=== PATIENT | female | born 1950 | race Caucasian/White ===

== ENCOUNTER → 2017-11-14 12:58 | Outpatient (CLI) | payer MEDICARE, OTHER, SELFPAY ==
--- NOTE | 2017-11-14 13:01 | US_ITS ---
STUDY: THYROID ULTRASOUND REASON FOR EXAM: Female, 67 years old. Nodules TECHNIQUE: Ultrasound evaluation of the thyroid was performed with real-time and static barboza-scale imaging. COMPARISON: November 29, 2016 FINDINGS: RIGHT LOBE: The right lobe of the thyroid gland measures 4.7 x 1.4 x 1.4 cm. There is a heterogeneous echotexture. Multiple nodules. Largest is 12 x 9 x 9MM. The lesion is solid with regular margins and intra- nodular doppler flow. LEFT LOBE: The left lobe of the thyroid gland measures 4 x 1.3 x 1.3 cm. There is a heterogeneous echotexture. Multiple nodules. The largest measures 13 x 12 x 9 mm. The lesion is solid with regular margins and intra- nodular doppler flow. ISTHMUS: The isthmus measures 3 mm . Nodule of the right isthmus measuring 16 x 14 x 5 mm. Nodule near the left isthmus measures 5 x 6 x 4 mm. US/Thyroid IMPRESSION: Multiple bilateral thyroid nodules. Stable right thyroid nodules. The nodule in the left thyroid lobe appear to have enlarged. Electronically Signed: Brandon Cleveland MD at 17:59 EST , Service support ,
== END ==
PROVIDERS: Family Provider Nurse Practitioner; PCP Nurse Practitioner; Visit Provider Nurse Practitioner
DX: E04.1 Nontoxic single thyroid nodule (principal)
CPT/HCPCS: 76536

== ENCOUNTER → 2017-11-28 08:03 | Outpatient (CLI) | payer MEDICARE, OTHER, SELFPAY ==
[2017-11-19 14:00] VITALS: BP 144/78; BMI 31.3
--- NOTE | 2017-11-28 | FLU_PTH ---
PATIENT: RUDI SUMMERS LOC: U#:[id number] AGE/SX: 75/F ROOM: RE11/28/[address]: Dr. Nik Chicas MD : 1950 BED: DIS: SPEC #: [id number] RECD: 11/28/17 10:16 STATUS: BRYON ELIZABETH #: [id number] VIC: 11/28/17 00:[address]: Nik Chicas DEPT: CYTOLOGY RECD BY: Rodrick Decker ENTERED: 11/28/17 10:17 SP TYPE: Fluid OTHR DR: Ellen Fonseca, OBSTETRICAL TECH-C Tissues: A - Thyroid gland, NOS B - Thyroid isthmus C - Thyroid gland, NOS Procedures: Pap Stain (control) Special Stain Group II Surgery Specimen Level IV Diff Quik Stain (control) Cell Block Cytospin Fluid HEADER OPERATION: Ultrasound-guided thyroid biopsy PRE-OP DIAGNOSIS: Multinodular goiter E04.2 TISSUE SUBMITTED: A ? Left thyroid, B ? Isthmus, C ? Right thyroid DIAGNOSIS CYTOLOGY A. Fine needle aspiration, left thyroid nodule (smears and cell block): Adequate for evaluation. Negative, consistent with benign follicular nodule. B. Fine needle aspiration, isthmus nodule (smears and cell block): Adequate for evaluation. Negative, consistent with benign colloid nodule. C. Fine needle aspiration, right thyroid lobe (smears and cell block): Adequate for evaluation. Negative, consistent with benign follicular nodule. AM:ke 11/29/17 COMMENT The specimen is evaluated at the time of thyroid FNA by Dr. Mercado. Immediate Evaluation = A. Follicular cells present. B. Follicular cells present. C. Follicular cells present. Case has been reviewed in consultation with Dr. Loya who concurs with the above diagnosis. IDC:[facility] CYTOLOGY STUDY Slides are reviewed. CYTOLOGY GROSS A - Received is 0.5 ml of reddish fluid labeled with the patient's name, and designated left thyroid. Eight imprints and six paps are made from the submitted fluid and the rest is added to CytoLyt for cell block preparation. Submitted for cytology study. B - Received is 0.5 ml of reddish fluid labeled with the patient's name, and designated isthmus. Six imprints and five paps are made from the submitted fluid and the rest is added to CytoLyt for cell block preparation. Submitted for cytology study. C - Received is 0.2 ml of reddish fluid labeled with the patient's name, and designated right thyroid. Six imprints and four paps are made from the submitted fluid and the rest is added to CytoLyt for cell block preparation. Submitted for cytology study. / AM:ke 11/28/17 TC:5 CPT: 70095 x3, 42641 x3
--- NOTE | 2017-11-28 08:06 | US_ITS ---
CLINICAL HISTORY: Female, 67 years old. Thyroid nodules. PROCEDURE: BIOPSY - biopsy of the left and right thyroid nodules as well as the nodular density in the isthmus. Under direct sonographic guidance, the surgeon performed a 22-gauge biopsy of the 1.3 cm x 1.2 cm x 0.8 cm nodule in the left lobe of the thyroid as well as of the 1.3 cm x 0.9 cm x 1.1 cm nodule in the lower right lobe of the thyroid. Aspiration biopsy of the isthmus nodule measuring 1.5 cm x 1.4 cm x 0.4 cm was obtained as well. US/US Thyroid Biopsy IMPRESSION: Successful ultrasound-guided biopsy of the thyroid nodules. Electronically Signed: Tariq Deluna MD at 10:07 EST Tel [phone], Service support ,
--- NOTE | 2017-11-28 09:00 | OP.PCM_ITS ---
Problem List (1) Nontoxic multinodular goiter Status: Acute Report of Operation Date of Procedure: 11/28/17 Pre-Operative Diagnosis: E04.2 multinodular goiter Post-Operative Diagnosis: Same Surgery/Procedure Performed:: 30369 ultrasound-guided fine-needle aspiration of left thyroid nodule ?1. Ultrasound-guided fine-needle aspiration of right thyroid nodule ?2 Type of Anesthesia:: Local Description of Procedure: Patient was placed in the ultrasound unit left side of her neck was ultrasound thyroid lesion was identified I prepped the skin with alcohol injected 1% lidocaine plain under ultrasound guidance I took 3 passes with a 22-gauge needle and immediately gave them to the pathologist. He plated these and looked at him and said we had an adequate number of follicular cells. We then ultrasound the right side of the neck the isthmus lesion on the right side of the neck with the first lesion that I went after. I prepped the skin with alcohol. I injected 1% lidocaine plain. Under ultrasound guidance I took 3 passes with a 22-gauge needle. Gave these to the pathologist on the pathologist gave a quick look and said these were adequate. Right thyroid nodule was then identified the skin was prepped with alcohol. 1% lidocaine plain was injected. Under ultrasound guidance 3 passes with a 22- gauge needle were performed. I gave him to the pathologist who plated them on glass slides and said that we had an adequate number of follicular cells. Sterile dressings were applied and the patient tolerated the procedure well. I will see the patient back in 1 week and we will discuss the pathology report at that time. - Admit VTE Documentation VTE Present on Admission: No VTE Mechan Device Prophylaxis: None VTE Pharm Prophylaxis ordered?: No Reason prophylaxis not ordered:: Treatment Not Indicated
== END ==
PROVIDERS: Family Provider Nurse Practitioner; PCP Nurse Practitioner; Visit Provider Surgery
DX: E04.2 Nontoxic multinodular goiter (principal)
CPT/HCPCS: 10022; 76942; 88108; 88305; 88313

== ENCOUNTER → 2018-10-31 14:18 | Outpatient (CLI) | payer MEDICARE, OTHER, SELFPAY ==
[2017-11-19 14:00] VITALS: BMI 31.3
--- NOTE | 2018-10-31 14:20 | US_ITS ---
STUDY: THYROID ULTRASOUND REASON FOR EXAM: Female, 68 years old. Thyroid nodules follow-up TECHNIQUE: Ultrasound evaluation of the thyroid was performed with real-time and static barboza-scale imaging. COMPARISON: 11/14/2017 FINDINGS: RIGHT LOBE: The right lobe of the thyroid gland measures 4.8 x 1.6 x 1.7 cm. There is a heterogeneous echotexture. Nodule adjacent to the isthmus measures 15 mm, stable. There is a 10 mm nodule in the right thyroid lobe which is slightly smaller since the prior study. No new or enlarging thyroid nodule. LEFT LOBE: The left lobe of the thyroid gland measures 3.7 x 1.5 x 1.6 cm. There is a heterogeneous echotexture. Similar thyroid nodule since prior study with the largest measuring up to 13 mm, when measured in a similar fashion. There is also a nodule along the left side of the isthmus which measures up to 6 mm. No new or enlarging thyroid nodule. ISTHMUS: The isthmus measures 4 mm. The regional lymph nodes are normal. US/Thyroid IMPRESSION: 1. Stable multinodular thyroid gland. No new or enlarging thyroid nodule. Electronically Signed: Navi Garcia MD at 16:38 EST , Service support ,
--- OUTSIDE RECORDS SUMMARY | 2019-01-05 04:36 | XMS RPT_ITS | Continuity of Care Document ---
:1950 Author Organization [facility] Address [address] [place] [address] Phone Care Team Providers Name Role Phone Ellen Fonseca CNP Unavailable Adrianne WISE, Nik Cowart Unavailable Gage Pike MD Unavailable Zach Gomez MD Unavailable Patsy Ann Unavailable Andrew Minaya MD Unavailable Emily Garcia Unavailable Unavailable Angel Michel Unavailable Unavailable Unavailable Unavailable Problems Name Dates Details Anemia (D64.9, 285.9) Comments: hemoglobin, 18 April 2017, was 13.2 in Oct 2016, 13.0 Nov 02 Status: Active Annual visit for general adult medical examination without abnormal findings (Z00.00, V70.0) Status: Active Bladder mass (N32.89, 596.89) Comments: Will do UA and fax results to Dr Ramos, 07/28 removed bladder massNon malignant , Dr Anand Status: Active Bladder tumor (D49.4, 239.4) Status: Active BMI 31.0-31.9,adult (Z68.31, V85.31) Status: Active BMI 32.0-32.9,adult (Z68.32, V85.32) Status: Active Breast cancer screening (Z12.31, V76.10) Status: Active Colon cancer screening (Renamed from Encounter for screening for malignant neoplasm of colon) (Z12.11, V76.51) Comments: Last colonoscopy in 2014. Pt refused cologuard or any testing until next colonoscopy is due. Status: Active Deliveries (Parity) Comments: Term, 1 Status: Active Encounter for hepatitis C virus screening test for high risk patient (Z11.59, V73.89) Status: Active Encounter for Medicare annual wellness exam (Z00.00, V70.0) Comments: MEDICARE PHYSICAL WITH ABNORMAL FINDING Z 00.01Will work with mortgage or loan underwriter < will check with mortgage or loan underwriter on that, worked on it luciana 2016Getting screening trexcord from rickereneGbrett pnemovax , needs prevnar 13Pa tient here for medical follow up as well as medicare physical. Went through all the medicare questions withthe patient and reveiwed all their medical problems.Breast exam:no masses, lumps, nodules.Axill germain lymph nodes non palpable.No abnormal moles on physical examination.Whisper test:3/3MMSE .Depression screening negative.Reviewed all the labs with the patient.(CBC, CMP, lipid panel, TSH, vitami n D, Vit B12,folate, HBA1c, UA)Mammogram: 10/29 Pomerene(will get results)BMD( 01/27(will get resulty )Colonoscopy( 2014 , rickjuan pablo, was told 10 yrs, will get results)ANDREW MinayaUp to date with tika mccartney.Does not need any medication refills.Make sure throw rugs are thin and rubber backed. Recommend handrail in bathroom.Denies falls in the last 6 months Counselled on diet and exercise.Pt does not have durable power of traffic law attorney and living will. Status: Active Fatigue (R53.83, 780.79) Status: Active Goiter (E04.9, 240.9) Comments: multinodular. saw Shewmom(moved)[facility] endocrine, 2 years ago. thyroid 10/29: Status: Active Hematuria (R31.9, 599.70) Comments: sees Cheng, had cystosocpy, follow ua to return prn Status: Active Hypercholesterolemia (E78.00, 272.0) Comments: reveiwed with patient recent tests ldl goodTG 92(was 88 09/27)TC 169(was 149)HDL 53( was 44LDL 98( was 85)Diet and exercise Status: Active Hyperparathyroidism (E21.3, 252.00) Comments: had parathyroidectomy 2010, Oct 2018 PTH 39, calcium good Status: Active Hyperparathyroidism, primary (E21.0, 252.01) Comments: Dr. jonas victor, at [facility]. calcium levels good. reviewed with patient labs from [facility] hui 10-14PTH of 1-18 normal at 31 and calcium normal at 9.5, repeating in 6 monthsremoved parathyroid 2010, CC.Saw Jonas Victor in 2010, not any more Status: Active Impaired fasting glucose (R73.01, 790.21) Status: Active Nail disorder (L60.9, 703.9) Comments: start with lamisil told if not improve with the treatment and see good nail grow out then to derm assure nto miss a melanoma etc. looks like fungu Status: Active Need for prophylactic vaccination and inoculation against influenza (Renamed from Need for immunization against influenza) (Z23, V04.81) Status: Active Need for prophylactic vaccination and inoculation against influenza (Renamed from Need for immunization against influenza) (Z23, V04.81) Status: Active Need for Tdap vaccination (Renamed from Need for cmemsmmnio-fyqppet-cozxtvswr (Tdap) vaccine, adult/adolescent) (Z23, V06.1) Status: Active Nonsmoker (Z78.9, V49.89) Status: Active Other abnormal glucose (R73.09, 790.29) Comments: HBA1c 5.9(10/29)Now 5.7(04/24/16)today 6-16- A1C is 5.7 Status: Active Post-menopausal (Z78.0, V49.81) Status: Active Pregnancies () Comments: 1 Status: Active Rash (R21, 782.1) Comments: of back, try lac hydrin 12% lotion to back Status: Active Skin texture changes (R23.4, 782.8) Status: Active Thyroid Nodule (E04.1, 241.0) Comments: Repeated Thyroid US showing enlarging nodule, will send to surgeon for biopsy, pt does not want [facility], will send to [facility]. Status: Active Unspecified urinary incontinence (R32, 788.30) Comments: doing well on med Status: Active Varicose veins of legs (I83.93, 454.9) Status: Active Vertigo (R42, 780.4) Status: Active Visit for screening mammogram (Z12.31, V76.12) Status: Active Vitamin D deficiency (E55.9, 268.9) Comments: Oct Status: Active Medications Name Dates Details Atorvastatin Calcium 80 MG Oral Tablet 1 Tablet daily for 0 days Quantity: 30 {Tablet} Refills: 3 Ordered:24-Jul-2018 Almajaronfranco DECKER Ellen Nefffranco DECKER Ellen Ma Start : 24-Jul-2018 Active Calcitriol 0.25 MCG Oral Capsule 1 (one) Capsule daily for 0 days Quantity: 30 {Capsule} Refills: 3 Ordered:24-Jul-2018 Almajaronfranco DECKER Ellen Nefffranco DECKER Ellen Ma Start : 24-Jul-2018 Active FISH OIL BURP-LESS, 1000MG (Oral Capsule) 3 qd (1000 MG) Active Meclizine HCl 12.5 MG Oral Tablet 1 (one) Tablet q8hrs prn dizziness for 0 days Quantity: 15 {Tablet} Refills: 0 Ordered:27-Oct-2018 Almabecky BRIANNE Ellen Nefffranco DECKER Ellen Ma Start : 27-Oct-2018 Active Oxybutynin Chloride ER 15 MG Oral Tablet Extended Release 24 Hour 1 Tablet ER 24HR daily for 0 days Quantity: 30 {Tablet} Refills: 3 Ordered:24-Jul-2018 Almabecky BRIANNE Ellen Nefffranco DECKER Ellen Ma Start : 24-Jul-2018 Active Vitamin D3 Super Strength 2000 UNIT Oral Tablet 1 (one) Tablet daily for 0 days Quantity: 30 {Tablet} Refills: 11 Ordered:27-Oct-2018 Raymundo BRIANNE Ellen Nefffranco DECKER Ellen Ma Start : 27-Oct-2018 Active WOMENS ONE DAILY (Oral Tablet) 1 qd Active CALCITRIOL, 0.25MCG (Oral Capsule) 1 qd (0.25 MCG) Inactive DETROL LA, 4MG (Oral Capsule Extended Release 24 Hour) 1 Capsule ER 24HR qd for 0 days Quantity: 30 {Capsule_ER_24HR} Refills: 3 Ordered:20-Feb-2011 CONCEPCION Valencia Start : 23-Nov-2010 End : 20-Feb-2011 Inactive ELIDEL, 1% (External Cream) 1 (one) Cream Cream bid for 0 days Quantity: 1 {Tube} Refills: 0 Ordered:04-Oct-2014 CONCEPCION Valencia Start : 30-Nov-2013 End : 04-Oct-2014 Inactive PREDNISONE, 20MG (Oral Tablet) 1 (one) Tablet uad for 15 days Refills: 0 Ordered:30-Mar-2015 Alessandra Hudson MD Start : 03-Mar-2015 End : 18-Mar-2015 Inactive Comments:2 a d for 5 d, 1 a d for 5d, 1/2 a d for 5 d TAMIFLU, 75MG (Oral Capsule) 1 Capsule BID for 0 days Quantity: 10 {Capsule} Refills: 0 Ordered:27-Oct-2009 CONCEPCION ValenciaInactive TRIAMCINOLONE ACETONIDE, 0.1% (External Cream) 1 (one) Cream Cream bid for 0 days Quantity: 1 {Each} Refills: 0 Ordered:21-Oct-2015 CONCEPCION Valencia Start : 03-Mar-2015 End : 21-Oct-2015 Inactive TYLENOL/CODEINE #3, 300-30MG (Oral Tablet) 1-2 Tablet TID/PRN for 0 days Quantity: 20 {Tablet} Refills: 0 Ordered:17-Sep-2008 CONCEPCION Valencia Start : 17-Sep-2008 End : 15-Mar-2009 Inactive ZITHROMAX Z-CAROLINE, 250MG (Oral Tablet) 2 (two) Tablet today then 1 qd for 4 days for 0 days Quantity: 6 {Tablet} Refills: 0 Ordered:22-Sep-2013 Riddhi Hobson LPN Start : 17-Aug-2013 End : 22-Sep-2013 Inactive ZOSTAVAX, 35973VVY/0.65ML (Subcutaneous Solution Reconstituted) 1 For Solution once SC for 0 days Quantity: 1 {For_Solution} Refills: 0 Ordered:16-Mar-2013 CONCEPCION Valencia Start : 16-Sep-2012 End : 16-Mar-2013 Inactive Comments:inject at pharmacy LamISIL 250 MG Oral Tablet 1 (one) Tablet Tablet in am for 0 days Quantity: 30 {Tablet} Refills: 2 Ordered:29-Mar-2017 Yuliet Cordero LPN Start : 13-Feb-2016 End : 29-Mar-2017 Discontinued LOVASTATIN, 40MG (Oral Tablet) 2 (two) Tablet QD for 0 days Quantity: 60 {Tablet} Refills: 3 Ordered:16-Mar-2013 Alessandra Hudson MD Start : 16-Mar-2013 End : 16-Mar-2013 Discontinued Vitamin D3 91961 UNIT Oral Tablet 1 (one) Tablet weekly for 0 days Quantity: 6 {Tablet} Refills: 1 Ordered:29-Mar-2017 Yuliet Cordero LPN Start : 24-Apr-2016 End : 29-Mar-2017 Discontinued Allergies and Adverse Reactions Name Dates Details Penicillins (Allergy) Status: Active Comments: ? Past Medical History Name Dates Details Acute pharyngitis (J02.9, 462) Status: Inactive as of 04-Oct-2014 BMI 31.0-31.9,adult (Z68.31, V85.31) Status: Inactive as of 23-Oct-2017 dehydration Comments: again ever agter iv fliuds twice. will admit Status: Inactive as of 16-Mar-2013 Eczema of eyelid (H01.139, 373.31) Status: Inactive as of 04-Oct-2014 Gastroenteritis (K52.9, 558.9) Comments: resoved has been going around Status: Resolved as of 15-Mar-2009 Headache (R51, 784.0) Comments: will get ov note from [facility] have my nurse call never got MRI report Status: Inactive as of 16-Mar-2013 Hive (L50.9, 708.9) Comments: not look like bug bites. not in area expect for bedbugs. not itch at night not seem like scabies. ? new mukesh. sterios and otc antihistamine not better then sderm Status: Inactive as of 21-Oct-2015 Hypercalcemia (E83.52, 275.42) Status: Inactive as of 16-Mar-2013 Hypokalemia (E87.6, 276.8) Comments: needs replaced Status: Inactive as of 16-Mar-2013 INFLAMED SEBORRHEIC KERATOSIS (L82.0, 702.11) Comments: left lower cheek Status: Inactive as of 04-Oct-2014 lesion on left calf Comments: need shave biopsy Status: Inactive as of 16-Mar-2013 Nausea and vomiting (R11.2, 787.01) Comments: ? viral. ? related to headaches. Status: Inactive as of 16-Mar-2013 Other abnormal finding of urine (R82.99, 791.9) Status: Inactive as of 16-Mar-2013 Screening for HPV (human papillomavirus) (Z11.51, V73.81) Comments: if negatie can do pap every few years Status: Inactive as of 16-Mar-2013 Unspecified Diagnosis Status: Inactive as of 16-Mar-2013 Urinary frequency (R35.0, 788.41) Status: Inactive as of 23-Oct-2017 Well woman exam (Z01.419, V72.31) Comments: colonscopy 2003, pap 5- HPV neg. mammo summer Status: Inactive as of 04-Oct-2014 Procedures Procedure Dates Details Colonoscopy Completed Comments: 04.20.15 - Lc De Jesus Cystoscopy/TURB Completed Comments: 07-25-15 Bladder tumor-benign Dr. Pabon parathyriodectomy 2010 Completed Date Value Details 06-Dec-2017 Operative Report Result: Comments: See Note; NOTES: [facility] Medical Records Department [address] [place] [address] Operative Report 11/28/17 0858 MR#: [id number] Acct: [id number] Name: PARIS LEIVA Rep #: [id number] : 1950 67 From: Nik Chicas MD PCP: Ellen Fonseca NP Status: REG CLI Y Location: [place] Problem List (1) Nontoxic multinodular goiter Status: Acute Report of Operation Date of Procedure: 11/28/17 Pre-Operative Diagnosis: E04.2 multinodular goiter Post- Operative Diagnosis: Same Surgery/Procedure Performed:: 40328 ultrasound-guided fine-needle aspiration of left thyroid nod ule 1. Ultrasound-guided fine-needle aspiration of right thyroid nodule 2 Type of Anesthesia:: Local Description of Procedure: Patient was placed in the ultrasound unit left side of her neck was ultras ound thyroid lesion was identified I prepped the skin with alcohol injected 1% lidocaine plain under ultrasound guidance I took 3 passes with a 22-gauge needle and immediately gave them to the pathologi st. He plated these and looked at him and said we had an adequate number of follicular cells. We then ultrasound the right side of the neck the isthmus lesion on the right side of the neck with the fir st lesion that I went after. I prepped the skin with alcohol. I injected 1% lidocaine plain. Under ultrasound guidance I took 3 passes with a 22-gauge needle. Gave these to the pathologist on the pathol ogist gave a quick look and said these were adequate. Right thyroid nodule was then identified the skin was prepped with alcohol. 1% lidocaine plain was injected. Under ultrasound guidance 3 passes wit h a 22-gauge needle were performed. I gave him to the pathologist who plated them on glass slides and said that we had an adequate number of follicular cells. Sterile dressings were applied and the lary ent tolerated the procedure well. I will see the patient back in 1 week and we will discuss the pathology report at that time. - Admit VTE Documentation VTE Present on Admission: No VTE Mechan Device Prophylaxis: None VTE Pharm Prophylaxis ordered?: No Reason prophylaxis not ordered:: Treatment Not Indicated 12/06/17 1334 <Electronically signed by Nik Chicas MD> Date Nik Chicas MD CC: Ellen Fonseca QUALITY INSPECTOR; Nik Chicas MD Signed 05-Dec-2017 Surgery Visit Report Result: Comments: See Note; NOTES: [facility] [address] [facility] [address] [place] [address] OFFICE VISIT Date of Service: 12/05/17 MR#: [id number] Acct: [id number] Name: PARIS BENAVIDES Rep #: [id number] : 1950 Provider: Nik Chicas MD Age/Sex: 67/F Location: [facility] Status: Signed Intake Intake Visit Reasons: F/U THYROID BX/WCH 11/28/2017 Chief Complaint: thyr oid FNA Nurse Staff Required: No Is patient in pain?: No Allergies Penicillins [PCN] Adverse Reaction (Verified 12/05/17 13:41) Hives Medications Aspirin [Aspirin, Baby] 81 mg PO DAILY@0800 07/18/15 [History Confirmed 12/05/17] Atorvastatin Calcium [Lipitor] 80 mg PO QHS 07/18/15 [History Confirmed 12/05/17] Calcitriol [Calcitriol] 0.25 mcg PO DAILY 07/18/15 [History Confirmed 12/05/17] Multivitam ins,Therapeutic [Multivitamin] 1 mg PO DAILY 07/18/15 [History Confirmed 12/05/17] Colcord-3 Fatty Acids/Fish Oil [Fish Oil 1,000 mg Capsule] 1 ea PO QHS 07/18/15 [History Confirmed 12/05/17] Colcord-3 Fatt y Acids/Fish Oil [Fish Oil 1,000 mg Softgel] 2 ea PO DAILY 07/18/15 [History Confirmed 12/05/17] Oxybutynin Chloride [Ditropan Xl] 15 mg PO DAILY 07/18/15 [History Confirmed 12/05/17] Is last menstrua l period known: No Post menopausal: Yes Patient : No PFSH Surgical History History of parathyroid surgery (Acute) S/P thyroid biopsy (Acute) Fam sindi History Mother Cancer Pancreas cancer Father CVA (cerebral vascular accident) Social History Smoking Status: Former smoker alcohol intake: never sub stance use type: does not use HPI HPI HPI: PARIS LEIVA, is a 67 F who presents to the office today for follow-up from a fine-needle aspiration of both the left and right side of her thyroid glands . Patient underwent a fine-needle aspiration on 11/28/2017 there were 3 areas that I biopsied a left thyroid nodule isthmus nodule in the right thyroid nodule all these came back as benign follicular nod ules all of them are adequate for evaluation she has noted a little bit of bruising. There have been no discomfort when she swallows and the headache she has been phonating appropriately. Exam HENMT Other: Her neck is supple minimal bruising is identified mostly on the left side there is no hard palpable nodules identified. Assessment AND Plan Problems 1. Multinodular goiter (nontoxic) E04.2 Nacho n Patient will need to have yearly thyroid ultrasounds. Of any the nodules bit larger than 4 cm and we will need to remove them. If any the nodules grow by more than 20% we will need to re-biopsy them. Coding Level of Care Code Off vis,est,level 2 Diagnoses Multinodular goiter (nontoxic) E04.2 12/05/17 1430 <Electronically signed by Nik Chicas MD> Date Nik Chicas MD Cosigner Signature: Date (if applicable) CC: Ellen Fonseca NP 28-Nov-2017 US Thyroid Biopsy Result: Comments: See Note; NOTES: [facility] Imaging Services [address] [place] [address] US Thyroid Biopsy MR#: [id number] Acct: [id number] Name: KRISTOPHERPARIS Rep #: [id number] D OB: 1950 F 67 From: Tariq Deluna MD PCP: Ellen Fonseca NP Status: REG CLI Study: US Thyroid Biopsy Date of Exam: 11/28/17 Exam# [id number] Ordering Dr: Nik Chicas MD CLINICAL HISTORY: Ed hadley, 67 years old. Thyroid nodules. PROCEDURE: BIOPSY - biopsy of the left and right thyroid nodules as well as the nodular density in the isthmus. Under direct sonographic guidance, the surgeon per formed a 22-gauge biopsy of the 1.3 cm x 1.2 cm x 0.8 cm nodule in the left lobe of the thyroid as well as of the 1.3 cm x 0.9 cm x 1.1 cm nodule in the lower right lobe of the thyroid. Aspiration biops y of the isthmus nodule measuring 1.5 cm x 1.4 cm x 0.4 cm was obtained as well. US/US Thyroid Biopsy IMPRESSION: Successful ultrasound-guided bi opsy of the thyroid nodules. Electronically Signed: Tariq Deluna MD at 10:07 EST Tel [phone], Service support , CC: Ellen Fonseca QUALITY INSPECTOR; Nik Chicas MD Cotton Header: Signed 21-Nov-2017 Surgery Visit Report Result: Comments: See Note; NOTES: [facility] [place] [address] [facility] [address] [place] [address] OFFICE VISIT Date of Service: 11/19/17 MR#: [id number] Acct: [id number] Name: PARIS BENAVIDES Rep #: [id number] : 1950 Provider: Nik Chicas MD Age/Sex: 67/F Location: [facility] Status: Signed Intake Vital Signs11/19/17 Height 5 ft 7 in 11/19/17 Weight: 200 lb Intake Visi t Reasons: THYROID NODULE Nurse Staff Required: No Is patient in pain?: No Allergies Penicillins [PCN] Adverse Reaction (Verified 11/19/17 14:01) Hives Medications Aspirin [Aspirin, Baby] 81 mg PO DAILY@0800 07/18/15 [History Confirmed 11/19/17] Atorvastatin Calcium [Lipitor] 80 mg PO QHS 07/18/15 [History Confirmed 11/19/17] Calcitriol [Calcitriol] 0.25 mcg PO DAILY 07/18/15 [History Confirmed 0 11/19/17] Multivitamins,Therapeutic [Multivitamin] 1 mg PO DAILY 07/18/15 [History Confirmed 11/19/17] Colcord-3 Fatty Acids/Fish Oil [Fish Oil 1,000 mg Capsule] 1 ea PO QHS 07/18/15 [History Confirmed 03/31] Colcord-3 Fatty Acids/Fish Oil [Fish Oil 1,000 mg Softgel] 2 ea PO DAILY 07/18/15 [History Confirmed 11/19/17] Oxybutynin Chloride [Ditropan Xl] 15 mg PO DAILY 07/18/15 [History Confirmed 11/19/17] PFSH Surgical History History of parathyroid surgery (Acute) Family History Mother Cancer Pancr eas cancer Father CVA (cerebral vascular accident) Social History Smoking Status: Former smoker alcohol intake: never substance use type: does not use HPI HPI HPI: PARIS LEIVA, is a 67 F who p resents to the office today for for evaluation of multinodular goiter. Patient had a thyroid ultrasound completed at [facility] on 11/14/2017. There was a comparison made from November 292016. Impression was read as multiple bilateral thyroid nodules. Stable right thyroid nodules. The nodule on the left thyroid appears to have enlarged. The nodule on the left side measures 13 mm x 12 mm x 9 mm. The last time this patient had a fine-needle aspiration of her thyroid was in 2013 up to the main campus at [facility] and it was negative. 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 At that time I sent her up to an endocrine surgeon [facility] who decided not to do any surgery but repeat fine-needle aspiration. She now pres ents with clearly an enlargement on both the right and left sides from 2013. The fine-needle aspiration was done on the left side in 2013. The patient has had parathyroid surgery and has had a cervical incision done already. ROS General General: No weight change, appetite, fatigue, colon cancer, breast cancer or weakness HEENT HEENT: No difficulty swallowing, eye injury, eye surgery, swollen gland s or hoarseness Endo Endocrine: No thyroid disease, diabetes mellitus, thyroid cancer, Hair loss, heat intolerance or cold intolerance Skin Skin: No rash or changing moles Breast Breast: No left breast lump, right breast lump, nipple discharge, breast pain, abnormal mammogram, abnormal US or breast enlargement Musc Musculoskeletal: No back problems, arthritis, rheumatoid arthritis, gout or joint pain Cardio Cardiovascular: Yes murmur; no pacemaker, heart disease, atrial fibrillation, high blood pressure, heart attack, heart stent, palpitations, shortness of breat with exertion or chest pain Psych Ps ychiatric: No depression, anxiety or hearing voices Resp Respiratory: No shortness of breath, No sleep apnea, No cough, No COPD, No asthma, No emphysema, No wheezing Gastro Gastrointestinal: No abdomina l pain, No nausea or vomiting, No diarrhea, No constipation, No blood in stool, No acid reflux, No hemorrhoids, No ulcers, No gallbladder problem, No black,tarry stools Micheal Hematologic: No blood thinne rs, No blood disorders, No bleeding, No anemia, No blood clots Neuro Neurologic: No system reviewed and no additional complaints, except as docu, No as per HPI, No abnormal walking, No abnormal hearing, No abnormal movements, No abnormal speech, No behavioral changes, No burning sensations, No confusion, No seizure-like activity, No unsteadiness, No dizziness, No localized weakness, No frequent falls, No headache(s), No lack of coordination, No loss of vision, No memory loss, No numbness, No other visual disturbances, No radiating pain, No restless legs, No sensory deficit, No fainting, No tingling, No tremor(s), No weakness, No other Exam Const General: well developed, no acute distress, well hydrated Orientation: oriented to person, oriented to place, oriented to time [facility] Head: normocephalic , atraumatic Ears: external ears normal Mouth: moist mucous membranes Other: Thyroid Exam: No hard nodules are felt bilaterally. There is no lymphadenopathy bilaterally. She has a well-healed cervical i ncision. Eyes Sclera: sclerae normal Pupils: normal by confrontation Neck Neck: no lymphadenopathy noted Neck mass: No Thyroid: symmetrical, thyroid normal Chest Chest palpation AND inspection: normal i nspection of the chest Breast Palpation: No nipple discharge Resp Effort AND Inspection: normal respiratory effort Auscultation: clear to auscultation bilaterally Percussion: percussion normal Cardio Ra te: regular rate Rhythm: regular rhythm Heart Sounds: murmur GI Palpation: soft, no masses, no hepatosplenomegaly, nontender Rectal Exam: other Other: Rectal exam deferred. Extrem General: no clubbing, cyanosis or edema, normal to inspection Assessment AND Plan Problems 1. Multinodular goiter (nontoxic) E04.2 Plan Even though the comparison was made from last years ultrasound of this years ultrasou nd I believe it is clear that the nodules on both sides of the thyroid gland have enlarged since 2013 when her last fine-needle aspiration was performed. Given this fact I am going to recommend that we do a bilateral fine-needle aspiration on her. I also explained to her that I do not anticipate finding anything different than I did on the last fine-needle aspiration which showed atypical follicular cells. Given this fact I gave her the opportunity go back up to [place] for another evaluation to see if they wanted to do a fine-needle aspiration. If the fine-needle aspiration comes back and shows atypical cells she will certainly have to go back up to [place] at that time. The difficult thing I have here is that I have done a fine-needle aspiration which showed atypical cells and recommended t hat she have surgery once. I sent her to irreparable surgeon who decided to repeat the fine-needle aspiration and got a different result. I still do not think that you can guarantee which fine-needle as piration is correct. And I am still recommending that she have surgery based upon the last fine-needle aspiration that I performed. We discussed the risks and benefits of the planned procedure. I have informed the patient that complications can occur including failure to complete the procedure. The patient had the opportunity to ask questions concerning the planned procedure. My staff has also explai nova the procedure to the patient in understandable terms and has given the patient printed material concerning the procedure. The patient freely consents to the procedure. Coding Level of Care Code Of f vis,new,level 3 Diagnoses Multinodular goiter (nontoxic) E04.2 11/21/17 0857 <Electronically signed by Nik Chicas MD> Date [facility]enio [facility]icas [facility] Signature: Date (if applicable) CC: Ellen Fonseca NP 14-Nov-2017 Thyroid Result: Comments: See Note; NOTES: [facility] Imaging Services [address] [place] [address] Thyroid MR#: [id number] Acct: [id number] Name: PARIS LEIVA Rep #: [id number] : 1949 F 67 From: Brandon Cleveland MD PCP: Ellen Fonseca NP Status: REG CLI Study: Thyroid Date of Exam: 11/14/17 Exam# [id number] Ordering Dr: Ellen Fonseca STUDY: THYROID ULTRASOUND REASON FOR EXAM: Female, 67 years old. Nodules TECHNIQUE: Ultrasound evaluation of the thyroid was performed with real-time and static barboza-scale imaging. COMPARISON: November 29, 2016 FI NDINGS: RIGHT LOBE: The right lobe of the thyroid gland measures 4.7 x 1.4 x 1.4 cm. There is a heterogeneous echotexture. Multiple nodules. Largest is 12 x 9 x 9MM. The lesion is solid with regular ma rgins and intra- nodular doppler flow. LEFT LOBE: The left lobe of the thyroid gland measures 4 x 1.3 x 1.3 cm. There is a heterogeneous echotexture. Multiple nodules. The largest measures 13 x 12 x 9 mm. The lesion is solid with regular margins and intra- nodular doppler flow. ISTHMUS: The isthmus measures 3 mm . Nodule of the right isthmus measuring 16 x 14 x 5 mm. Nodule near the left isthmus lori sures 5 x 6 x 4 mm. US/Thyroid IMPRESSION: Multiple bilateral thyroid nodules. Stable right thyroid nodules. The nodule in the left thyroid lobe appear to have enlarged. Electronically Signed: Brandon Cleveland MD at 17:59 EST , Service support , CC: Ellen Fonseca QUALITY INSPECTOR; Dr Krishnamurthy Cotton Header: Signed 29-Jan-2017 Dexa Bone Density Study (HP) Result: Comments: See Note; NOTES: [facility] Imaging Services [address] [place] [address] Verdana 4d Dexa Bone Density Study (HP) MR#: [id number] Acct: [id number] Name: SHANTAL LEIVA Kely Rep #: [id number] : 1950 F 66 From: Tariq Deluna MD PCP: Ciesa, Ellen Status: REG CLI Study: Dexa Bone Density Study (HP) Date of Exam: 01/29/17 Exam# [id number] Ordering Dr: Solange Fonseca STUDY: DUAL ENERGY X-RAY ABSORPTIOMETRY / DXA REASON FOR EXAM: Female, 66 years old. The patient is postmenopausal. Loss of height. TECHNIQUE: Bone Mineral Density (BMD) measurements of lumbar spi ne and bilateral hips were obtained. COMPARISON: Comparison is made with prior study dated January 27, 2015. FINDINGS: Lumbar Spine (L1-L4): g/cm2 (1.200) / T-score (0.0) / Z-score (1.6) Findings are suggestive of normal bone density with a low fracture risk. Left Femur Total: g/cm2 (0.938) / T-score (-0.6) / Z-score (0.8) Left Femoral Neck: g/cm2 (0.824) / T-scor e (-1.5) / Z-score (0.1) Right Femur Total: g/cm2 (0.817) / T-score (-1.5) / Z- score (-0.1) Right Femoral Neck: g/cm2 (0.752) / T-score (-2.1) / Z-score (-0.4) The T-Scores on the most recent prior exa mination were: Lumbar Spine (L1-L4): There has been improvement of bone density since the previous examination. Left Femur Total: which represents a worsening of 3.2%. Right Femur Total: which represe nts a worsening of 3.7%. HPBD/Dexa Bone Density Study (HP) IMPRESSION: The patient is considered osteopenic as outlined below according to World Albert Organization (WHO) criteria with a moderate fracture risk. There has been worsening of bone density since the previous examination. Reference Information: The T-score is the number of standard deviations above or below the standard which is normal for young adults at their peak bone mineral density. The World Health Organization (WHO) interprets the T-scores as follows: Above -1 Normal bone density Between -1 and -2.5 Osteopenia Equal to / or below -2.5 Osteoporosis As a practical clinical guideline, osteopenia may be graded as follows: Mild -1 through - 1.5 Moderate -1.6 through -2.0 Severe -2.1 through -2.4 The Z-score is the number of standard deviations above or below age-matched controls. A Z-score of less than -1.5 would be considered abnormal. References: 1. NIH Osteoporosis and Related Bone Diseases http://www.osteo.org 2. International Society for Clinical Densitometry http://www.iscd.org 3. National Osteoporosis Foundation http://www.nof.o rg Electronically Signed: Tariq Deluna MD at 20:08 EDT Tel [phone], Service support , CC: Ellen Fonseca Cotton Header: Signed 29-Nov-2016 Thyroid Result: Comments: See Note; NOTES: [facility] Imaging Services [address] [place] [address] Verdana 4d Thyroid MR#: [id number] Acct: [id number] Name: PARIS LEIVA Rep #: [id number] : 1950 F 66 From: Brandon Cleveland MD PCP: Ellen Fonseca Status: REG CLI Study: Thyroid Date of Exam: 11/29/16 Exam# [id number] Ordering Dr: Ellen Fonseca STUDY: THYROID ULTRASOUND REASON FOR EXAM: Female, 66 years old. Nodules TECHNIQUE: Ultrasound evaluation of the thyroid was performed with real-time and static barboza-scale imaging. COMPARISON: 11.14.15 FINDI NGS: RIGHT LOBE: The right lobe of the thyroid gland measures 4.8 x 1.5 x 1.5 cm. There is a heterogeneous echotexture. Multiple nodules. These measure 12 x 10 mm, 15 x 15 mm. The lesion is solid with regular margins and intra-nodular doppler flow. LEFT LOBE: The left lobe of the thyroid gland measures 3.8 x 1.4 x 1.4 cm. There is a homogeneous echotexture. Multiple thyroid nodules. Left thyroid nod ule measures 16 x 11 mm, 11 x 10 mm, and 10 x 7 mm. The lesion is solid with regular margins and intra-nodular doppler flow. ISTHMUS: The isthmus measures 3 mm. Isthmus nodule measures 12 x 10 x 9 mm. Second left-sided isthmus nodule measures 10 x 7 mm. The lesion is solid with regular margins and intra-nodular doppler flow. US/Thyroid IMPRESS ION: Bilateral thyroid nodules. Both the right and left thyroid nodules appear slightly more hypervascular than the prior study. The [place] Association of Clinical Re Recording Mixer (AACE) in collabora tion with the Associazione Medici Endocrinologi (DORCAS) and the Thyroid Association (ETA) published guidelines for the diagnosis and management of thyroid nodules. Biopsy of any solid and hypoech oic nodule larger than 1 cm in diameter. Thyroid nodules of any size undergo biopsy if the patient has been exposed to irradiation, has a family history of medullary carcinoma or multiple endocrine neop lasia, or has previously undergone partial thyroidectomy for thyroid cancer or if an elevated calcitonin level is present. The AACE/DORCAS/ETA guidelines recommend biopsy of nodules of any size with marked hypoechogenicity, irregular or microlobulated margins, a taller than wide configuration (anteroposterior dimension greater than transverse dimension), microcalcifications, or chaotic arrangeme nt of intranodular vascular images or chaotic intranodular vascular spots. These guidelines recommend biopsy independent of size if ultrasonography suggests the presence of me tastatic lymph nodes or if extracapsular growth is noted in the nodule. They recommend biopsy of the solid component of all complex cystic nodules because of the risk of cystic papillary carcinoma. They further suggest that nodules that are hot on scintigraphy do not require biopsy. -Current Guidelines for the Management of Thyroid Nodules. Jd Gabriel MD, FACE, ECNU. Endocr Prac t. 2012; 18(4): 596-599. Electronically Signed: Brandon Cleveland MD at 22:56 EST , Service support [phone], CC: Ellen Fonseca Cotton Header: Signed 14-Nov-2015 Thyroid Result: Comments: See Note; NOTES: [facility] Imaging Services [address] [place] [address] Verdana 4d Thyroid MR#: [id number] Acct: [id number] Name: PARIS LEIVA Rep #: [id number] : 1950 F 65 From: Tariq Deluna MD PCP: Alessandra Hudson MD Status: REG CLI Study: Thyroid Date of Exam: 11/14/15 Exam# [id number] Ordering Dr: Alessandra Hudson MD STUDY: THY ROID ULTRASOUND REASON FOR EXAM: Female, 65 years old. Thyroid nodules. Prior thyroid biopsy of the left thyroid nodule. TECHNIQUE: Ultrasound evaluation of the thyroid was performed with real-nakul e and static barboza-scale imaging. COMPARISON: Comparison is made with prior examination dated May 25, 2013. FINDINGS: RIGHT LOBE: The right lobe of the thyr oid gland measures 5.2 cm x 1.8 cm x 1.6 cm. There is a homogeneous echotexture. There is a 1.0 cm x 1.1 cm x 0.9 cm solid nodule in the midportion of the right lobe. Adjacent to this, there is a 4 m m x 2 mm x 2 mm hypoechoic solid nodule. LEFT LOBE: The left lobe of the thyroid gland measures 3.8 cm x 1.6 cm x 1.6 cm. There is a heterogeneous echotexture. There is a dominant 1.6 cm x 1.2 cm x 0.9 cm hypoechoic solid nodule in the upper portion of the left lobe. There also are 2 subcentimeter hypoechoic solid nodules. ISTHMUS: The isthmus measures 3.0 mm. 2 isthmus nodules are seen. The l arger measures 1.5 cm 1.3 cm x 0.4 cm. This is along the right side of the midline. The regional lymph nodes are normal. IMPRESSION: Bilateral thyroid nodules more prominent on the left side. There also 2 nodules in the isthmus portion of the thyroid gland. Electronically Signed: Tariq Deluna MD at 14:52 EST Tel [phone], Service p[place] pport [phone], CC: Alessandra Hudson MD Cotton Header: Signed 14-Nov-2015 Thyroid Result: Comments: See Note; NOTES: [facility] Imaging Services [address] [place] [address] Verdana 4d Thyroid MR#: [id number] Acct: [id number] Name: PARIS LEIVA Rep #: [id number] : 1950 F 65 From: Tariq Deluna MD PCP: Alessandra Hudson MD Status: REG CLI Study: Thyroid Date of Exam: 11/14/15 Exam# [id number] Ordering Dr: Alessandra Hudson MD ADDENDUM b y Tariq Deluna MD on 11/16/15 at 1250 ADDENDUM This is an addendum report. Prior examin ation was a targeted ultrasound-guided biopsy of the left thyroid. The visualized nodules are unchanged. Electronically Signed: Tariq Deluna MD at 12:50 EST Tel [phone], Servi ce support [phone], 11/16/15 1250 Date cc: Alessandra Hudson MD * Signed STUDY: THYROID ULTRASOUND REASON FOR EXAM: Female, 65 years old. Thyroid nodules . Prior thyroid biopsy of the left thyroid nodule. TECHNIQUE: Ultrasound evaluation of the thyroid was performed with real-time and static barboza-scale imaging. COMPARISON: Comparison is made with p rior examination dated May 25, 2013. FINDINGS: RIGHT LOBE: The right lobe of the thyroid gland measures 5.2 cm x 1.8 cm x 1.6 cm. There is a homogeneous ech otexture. There is a 1.0 cm x 1.1 cm x 0.9 cm solid nodule in the midportion of the right lobe. Adjacent to this, there is a 4 mm x 2 mm x 2 mm hypoechoic solid nodule. LEFT LOBE: The left lobe of t he thyroid gland measures 3.8 cm x 1.6 cm x 1.6 cm. There is a heterogeneous echotexture. There is a dominant 1.6 cm x 1.2 cm x 0.9 cm hypoechoic solid nodule in the upper portion of the left lobe. T here also are 2 subcentimeter hypoechoic solid nodules. ISTHMUS: The isthmus measures 3.0 mm. 2 isthmus nodules are seen. The larger measures 1.5 cm 1.3 cm x 0.4 cm. This is along the right side of the midline. The regional lymph nodes are normal. IMPRESSION: Bilateral thyroid nodules more prominent on the left side. There also 2 nodules in the isthmus p ortion of the thyroid gland. Electronically Signed: Tariq Deluna MD at 14:52 EST Tel [phone], Service support [phone], CC: Alessandra Hudson MD Cotton Header: Signed 25-Jul-2015 Operative Report Result: Comments: See Note; NOTES: [facility] Medical Records Department [address] [place] [address] Operative Report MR#: [id number] Acct: [id number] Name: PARIS LEIVA #: [id number] : 1950 65 From: Jamaal Anand MD PCP: Alessandra Hudson MD Status: [facility] DATE OF SERVICE: 07/22/2015 DATE OF SERVICE: July 22, 2015 PREOPERATIVE DIAGNOSIS: Bladder t umor. POSTOPERATIVE DIAGNOSIS: Bladder tumor. PROCEDURE: Cystoscopy, transurethral resection of small bladder tumor and bilateral retrograde pyelogram. SURGEON: Jamaal Anand M.D. ANES THESIA: General. COMPLICATIONS: None. INDICATIONS: This is a 65-year-old female, who on hematuria workup was found to have a tumor in the right side of her bladder, about a centimeter from the r ight ureteral orifice. Because of this, I recommended we take her to surgery to resection of this tumor and cauterize the tumor base. We will also do a retrograde pyelogram to check both the kidneys. She does have a history of microscopic hematuria. PROCEDURE NOTE: The patient was taken back to the operating room. After smooth induction of general anesthesia, she was placed in dorsal lithotomy position. The urethra and vaginal area were prepped and draped in the usual sterile fashion. I went into the bladder with a 21-[place] rigid cystourethroscope. I did a pancystoscopy with 30 and 70-degr ee lens, identified a tumor in the right side of the bladder next to the trigone about a centimeter or two from the right ureteral orifice. I did a retrograde pyelogram on the left side, which was no rmal; the retrograde pyelogram on the right side, which was normal. I then used a cold cup biopsy forceps to remove the tumor and then cauterized the base of electrocautery. Once this was done, the pa tient's bladder was drained. There was no bleeding. She was taken back to PACU in good condition. She will follow up with me in the office in about 2 weeks. Jamaal Anand MD T: INOCENCIO J OB: [id number] 07/25/15 0924 <Electronically signed by Jamaal Anand MD> Date Jamaal Anand MD Cosigner Signature (If Indicated): Date CC: Alessandra Hudson MD; Jamaal Anand MD Date Dictated: 07/22/15 1037 Date Transcribed: 07/22/15 1037 Cotton Header: Signed 22-Jul-2015 Discharge Instruction Result: Comments: See Note; NOTES: [facility] Medical Records Department [address] [place] [address] Instructions for Home/Discharge Instructions 07/22/15 1034 MR#: [id number] ct: [id number] Name: PARIS LEIVA Rep #: [id number] : 1950 65 From: Jamaal Anand MD PCP: Alessandra Hudson MD Status: [facility] Discharge Diet: No Restrictions, Light diet - advance as to lerated Discharge Activity: Return to Normal Activity, May Not Drive - for 2 days. Return to work on:: 07/25/15 May shower in (days): 1 Additional Activity Instructions:: If you have any problems ca [phone] and ask for your doctor to be paged. Please be aware that pain medications may cause nausea. You should typically eat light foods as you take your pain medication. Pain medication may cause constipation, if this is a problem for you, please discuss with your doctor. Call your doctor if you observe: Fever of 101 or Higher, Uncontrolled pain Allergies/Adverse Reactions: Allergies Penicillins [PCN] Adverse Reaction (Verified 07/18/15 10:23) Hives Medications to take at Discharge Aspirin [Aspirin, Baby] 81 mg PO DAILY@0800 07/18/15 Atorvastatin Calcium [Lipitor] 80 mg PO Q HS 07/18/15 Calcitriol [Calcitriol] 0.25 mcg PO DAILY 07/18/15 Multivitamins,Therapeutic [Multivitamin] 1 mg PO DAILY 07/18/15 Colcord-3 Fatty Acids/Fish Oil [Fish Oil 1,000 mg Capsule] 1 each PO QHS 1 Colcord-3 Fatty Acids/Fish Oil [Fish Oil 1,000 mg Softgel] 2 each PO DAILY 07/18/15 Oxybutynin Chloride [Ditropan Xl] 15 mg PO DAILY 07/18/15 Please Follow Up With: Jamaal Anand When: in 2 weeks, please call to make an appointment. 07/22/15 1035 <Electronically signed by Jamaal Anand MD> Date Jamaal Anand MD CC: Alessandra Hudson MD 22-Jul-2015 Operative Report Result: Comments: See Note; NOTES: [facility] Medical Records Department [address] [place] [address] Operative Report 07/22/15 1032 MR#: [id number] Acct: [id number] Name: PARIS GUAJARDO Rep #: [id number] : 1950 65 From: Jamaal Anand MD PCP: Alessandra Hudson MD Status: [facility] Y Location: [place] [address] Report of Operation Date of Procedure: 07/22/15 Pre-Operativ e Diagnosis: bladder tumor and hematuria Post-Operative Diagnosis: same Surgery/Procedure Performed:: transurethral resection of small bladder tumor. b/l retrograde pyelograms Type of Anesthesia:: G eneral Anesthesiologist: Jose Alberto Andrea Specimen's removed: bladder tumor Drains: none Estimated Blood Loss: none - Admit VTE Documentation VTE Present on Admission: Yes VTE Mechan Device Prophyla xis: SCD's VTE Pharm Prophylaxis ordered?: No Reason prophylaxis not ordered:: Treatment Not Indicated 07/22/15 1034 <Electronically signed by Jamaal Anand MD> Date Jamaal Anand MD CC: Alessandra Hudson MD; Jamaal Anand MD Signed 08-Jun-2015 Abdomen/Pelvis W/WO Contrast Result: Comments: See Note; NOTES: [facility] Imaging Services [address] [place] [address] CAT Scan Report MR#: [id number] Acct: [id number] Name: PARIS LEIVA Rep #: [id number] : 1950 F 64 From: Tariq Deluna MD PCP: Alessandra Hudson MD Status: REG CLI Study: Abdomen/Pelvis W/WO Contrast Date of Exam: 06/08/15 Exam# [id number] Ordering Dr: Jamaal Anand MD STUDY: CT ABDOMEN AND PELVIS WITH AND WITHOUT CONTRAST REASON FOR EXAM: Female, 64 years old. Hematuria. RADIATION DOSAGE (If Supplied By Facility): CTDIvol = ( 10.33 ) mGy, DLP = ( 1743.16 ) m Gycm TECHNIQUE: Transaxial images were obtained from the dome of the diaphragm to the symphysis pubis without oral contrast. 100 ml of Isovue 300 contrast was administered. Sagittal and coronal imag es were reconstructed. Delayed imaging was obtained as well. COMPARISON: None. FINDINGS: The visualized lung bases are unremarkable. The visualized portions of the heart are within normal limits. Normal liver. Normal gallbladder and extrahepatic biliary system. Normal spleen. Normal pancreas. Normal bilateral adrenal glands. 1 cm fat-containing cortic al lesion along the lateral aspect of the midportion of the right kidney suggestive of a small angiomyolipoma. Normal left kidney. There is a small hiatal hernia. Normal small intestine. Normal colo n. The appendix is visualized and appears normal. There is diffuse atherosclerotic calcification of the abdominal aorta, without a demonstrated aneurysm. Normal inferior vena cava. Normal retroperi toneum. The urinary bladder is empty. Calcified fibroid uterus. Normal abdominal wall. There are diffuse degenerative changes of the visualized lumbar spine. 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 Electronically Signed: Tariq Deluna MD at 15:42 EDT Tel [phone], Se rvice support [phone], CC: Alessandra Hudson MD; Jamaal Anand MD Cotton Header: Signed 27-Jan-2015 Dexa Bone Density Study (HP) Result: Comments: See Note; NOTES: [facility] Imaging Services [address] [place] [address] Bone Density Report MR#: [id number] Acct: [id number] Name: PARIS LEIVA Rep #: [id number] : 1950 F 64 From: Tariq Deluna MD PCP: Alessandra Hudson MD Status: REG CLI Study: Dexa Bone Density Study (HP) Date of Exam: 01/27/15 Exam# [id number] Ordering Dr: Alessandra Hudson MD STUDY: DUAL ENERGY X-RAY ABSORPTIOMETRY / DXA REASON FOR EXAM: Female, 64 years old. The patient is postmenopausal. TECHNIQUE: Bone Mineral Density (BMD) measurements of lumbar spine and bilat eral hips were obtained. COMPARISON: None. FINDINGS: Lumbar Spine (L1-L4): g/cm2 (1.053) / T-score (-1.2) / Z-score (0.4) Findings are suggestive of osteopeni a with a low fracture risk. Left Femur Total: g/cm2 (0.969) / T-score (-0.3) / Z-score (1.0) Left Femoral Neck: g/cm2 (0.850) / T-score (-1.4) / Z-score (0.2) Right Femur Total: g/cm2 (0.848) / T-sc ore (-1.3) / Z-score (0.0) Right Femoral Neck: g/cm2 (0.817) / T-score (-1.6) / Z-score (-0.1) IMPRESSION: The patient is considered osteopenic as outlined belo w according to World Albert Organization (WHO) criteria with a moderate fracture risk. Reference Information: The T- score is the number of standard deviations ab ove or below the standard which is normal for young adults at their peak bone mineral density. The World Health Organization (WHO) interprets the T-scores as follows: Above -1 Normal bone density Between -1 and -2.5 Osteopenia Equal to / or below -2.5 Osteoporosis As a practical clinical guideline, osteopenia may be graded as follows: Mild -1 through -1.5 Moderate -1.6 through -2.0 Severe -2.1 through -2.4 The Z-score is the number of standard deviations above or below age-matched controls. A Z-score of less than -1.5 would be considered abnormal. References: 1. NIH Osteoporosis an d Related Bone Diseases http://www.osteo.org 2. International Society for Clinical Densitometry http://www.iscd.org 3. National Osteoporosis Foundation http://www.nof.org Electronically Signed: Ramos Deluna MD at 16:13 EDT Tel [phone], Service support [phone], CC: Alessandra Hudson MD Cotton Header: Signed Immunization Name Dates Details Influenza, split virus, preserv. 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 Comments: Remotely quit tobacco use Status: Active Smoking Status Name Dates Details Former smoker Vital Signs Date Test Result Details [id number] Temperature 97.6 f Comments: Method: Temporal Pulse 77 /min Comments: Pattern: Regular Respiration Rate 17 /min Comments: Pattern: Unlabored O2 SAT 94 % Comments: Room air BP Systolic 138 mm[Hg] Comments: Patient Position: Sitting; Cuff Location: Left Arm; Cuff Size: Standard BP Diastolic 70 mm[Hg] Comments: Patient Position: Sitting; Cuff Location: Left Arm; Cuff Size: Standard Weight 208.375 lb Height 67 in Body Mass Index Calculated 32.64 kg/m2 Body Surface Area Calculated 2.06 m2 [id number] Temperature 97.7 f Comments: Method: Temporal Pulse 66 /min Comments: Pattern: Regular Respiration Rate 17 /min Comments: Pattern: Unlabored O2 SAT 95 % Comments: Room air BP Systolic 134 mm[Hg] Comments: Patient Position: Sitting; Cuff Location: Left Arm; Cuff Size: Standard BP Diastolic 80 mm[Hg] Comments: Patient Position: Sitting; Cuff Location: Left Arm; Cuff Size: Standard Weight 206 lb Height 67 in Body Mass Index Calculated 32.26 kg/m2 Body Surface Area Calculated 2.05 m2 :26 Temperature 97.6 f Pulse 60 /min Comments: Pattern: Regular Respiration Rate 17 /min Comments: Pattern: Unlabored O2 SAT 97 % Comments: Room air BP Systolic 122 mm[Hg] Comments: Patient Position: Sitting; Cuff Location: Left Arm; Cuff Size: Standard BP Diastolic 68 mm[Hg] Comments: Patient Position: Sitting; Cuff Location: Left Arm; Cuff Size: Standard Weight 203.5 lb Height 67 in Body Mass Index Calculated 31.87 kg/m2 Body Surface Area Calculated 2.04 m2 :18 Temperature 97.9 f Pulse 64 /min Comments: Pattern: Regular Respiration Rate 16 /min Comments: Pattern: Unlabored O2 SAT 96 % Comments: Room air BP Systolic 132 mm[Hg] Comments: Patient Position: Sitting; Cuff Location: Left Arm; Cuff Size: Standard BP Diastolic 84 mm[Hg] Comments: Patient Position: Sitting; Cuff Location: Left Arm; Cuff Size: Standard Weight 204.25 lb Height 67 in Body Mass Index Calculated 31.99 kg/m2 Body Surface Area Calculated 2.04 m2 :41 Pulse 68 /min Comments: Pattern: Regular Respiration Rate 18 /min Comments: Pattern: Unlabored O2 SAT 97 % Comments: Room air BP Systolic 122 mm[Hg] Comments: Patient Position: Sitting; Cuff Location: Left Arm; Cuff Size: Standard BP Diastolic 72 mm[Hg] Comments: Patient Position: Sitting; Cuff Location: Left Arm; Cuff Size: Standard Weight 198 lb Height 67 in Body Mass Index Calculated 31.01 kg/m2 Body Surface Area Calculated 2.01 m2 :40 Temperature 97.4 f Pulse 60 /min Comments: Pattern: Regular Respiration Rate 16 /min Comments: Pattern: Unlabored O2 SAT 97 % Comments: Room air BP Systolic 126 mm[Hg] Comments: Patient Position: Sitting; Cuff Location: Left Arm; Cuff Size: Standard BP Diastolic 82 mm[Hg] Comments: Patient Position: Sitting; Cuff Location: Left Arm; Cuff Size: Standard Weight 198 lb Height 67 in Body Mass Index Calculated 31.01 kg/m2 Body Surface Area Calculated 2.01 m2 84-Zoy-[id number]:04 Weight 199 lb Height 67 in Body Mass Index Calculated 31.17 kg/m2 Body Surface Area Calculated 2.02 m2 :46 Weight 199 lb Height 67 in Body Mass Index Calculated 31.17 kg/m2 Body Surface Area Calculated 2.02 m2 :25 Temperature 97.4 f Pulse 72 /min Comments: Pattern: Regular Respiration Rate 18 /min Comments: Pattern: Unlabored O2 SAT 97 % Comments: Room air BP Systolic 140 mm[Hg] Comments: Patient Position: Sitting; Cuff Location: Left Arm; Cuff Size: Standard BP Diastolic 84 mm[Hg] Comments: Patient Position: Sitting; Cuff Location: Left Arm; Cuff Size: Standard Weight 199 lb Height 67 in Body Mass Index Calculated 31.17 kg/m2 Body Surface Area Calculated 2.02 m2 :10 Temperature 97 f Comments: Method: Temporal Pulse 98 /min Comments: Pattern: Regular Respiration Rate 16 /min Comments: Pattern: Unlabored BP Systolic 128 mm[Hg] Comments: Patient Position: Sitting; Cuff Location: Left Arm; Cuff Size: Standard BP Diastolic 76 mm[Hg] Comments: Patient Position: Sitting; Cuff Location: Left Arm; Cuff Size: Standard Weight 204 lb Height 67 in Body Mass Index Calculated 31.95 kg/m2 Body Surface Area Calculated 2.04 m2 :11 Pulse 60 /min Comments: Pattern: Regular O2 SAT 98 % Comments: Room air BP Systolic 150 mm[Hg] Comments: Patient Position: Sitting; Cuff Location: Left Arm; Cuff Size: Standard BP Diastolic 80 mm[Hg] Comments: Patient Position: Sitting; Cuff Location: Left Arm; Cuff Size: Standard Weight 204.125 lb Height 67 in Body Mass Index Calculated 31.97 kg/m2 Body Surface Area Calculated 2.04 m2 :57 Temperature 97.9 f Comments: Method: Temporal Pulse 70 /min Comments: Pattern: Regular Respiration Rate 20 /min Comments: Pattern: Unlabored O2 SAT 98 % Comments: Room air BP Systolic 120 mm[Hg] Comments: Patient Position: Sitting; Cuff Location: Left Arm; Cuff Size: Standard BP Diastolic 80 mm[Hg] Comments: Patient Position: Sitting; Cuff Location: Left Arm; Cuff Size: Standard Weight 203 lb Height 67 in Body Mass Index Calculated 31.79 kg/m2 Body Surface Area Calculated 2.04 m2 :50 Temperature 98.2 f Comments: Method: Temporal Pulse 72 /min Comments: Pattern: Regular Respiration Rate 16 /min Comments: Pattern: Unlabored O2 SAT 96 % Comments: Room air BP Systolic 122 mm[Hg] Comments: Patient Position: Sitting; Cuff Location: Left Arm; Cuff Size: Standard BP Diastolic 74 mm[Hg] Comments: Patient Position: Sitting; Cuff Location: Left Arm; Cuff Size: Standard Weight 200 lb Height 67 in Body Mass Index Calculated 31.32 kg/m2 Body Surface Area Calculated 2.02 m2 :38 Temperature 98.2 f Comments: Method: Oral Pulse 62 /min Comments: Pattern: Regular Respiration Rate 15 /min O2 SAT 97 % Comments: Room air BP Systolic 142 mm[Hg] Comments: Patient Position: Sitting; Cuff Location: Left Arm; Cuff Size: Standard BP Diastolic 80 mm[Hg] Comments: Patient Position: Sitting; Cuff Location: Left Arm; Cuff Size: Standard Weight 201 lb Height 67 in Body Mass Index Calculated 31.48 kg/m2 Body Surface Area Calculated 2.03 m2 :43 Temperature 98.2 f Comments: Method: Temporal Pulse 72 /min Comments: Pattern: Regular Respiration Rate 16 /min Comments: Pattern: Unlabored O2 SAT 97 % Comments: Room air BP Systolic 124 mm[Hg] Comments: Patient Position: Sitting; Cuff Location: Left Arm; Cuff Size: Standard BP Diastolic 78 mm[Hg] Comments: Patient Position: Sitting; Cuff Location: Left Arm; Cuff Size: Standard Weight 201 lb Height 67 in Body Mass Index Calculated 31.48 kg/m2 Body Surface Area Calculated 2.03 m2 :32 Temperature 97.5 f Pulse 56 /min Comments: Pattern: Regular Respiration Rate 18 /min Comments: Pattern: Unlabored BP Systolic 128 mm[Hg] Comments: Patient Position: Sitting; Cuff Location: Left Arm; Cuff Size: Large BP Diastolic 70 mm[Hg] Comments: Patient Position: Sitting; Cuff Location: Left Arm; Cuff Size: Large Weight 200 lb Height 67 in Body Mass Index Calculated 31.32 kg/m2 Body Surface Area Calculated 2.02 m2 :04 Temperature 97.8 f Comments: Method: Oral Pulse 64 /min Comments: Pattern: Regular Respiration Rate 20 /min Comments: Pattern: Unlabored BP Systolic 120 mm[Hg] Comments: Patient Position: Sitting; Cuff Location: Left Arm; Cuff Size: Standard BP Diastolic 78 mm[Hg] Comments: Patient Position: Sitting; Cuff Location: Left Arm; Cuff Size: Standard Weight 196 lb Height 67 in Body Mass Index Calculated 30.7 kg/m2 Body Surface Area Calculated 2 m2 :37 Temperature 97 f Comments: Method: Oral Pulse 70 /min Comments: Pattern: Regular Respiration Rate 16 /min Comments: Pattern: Unlabored O2 SAT 98 % Comments: Room air BP Systolic 122 mm[Hg] Comments: Patient Position: Sitting; Cuff Location: Left Arm; Cuff Size: Standard BP Diastolic 74 mm[Hg] Comments: Patient Position: Sitting; Cuff Location: Left Arm; Cuff Size: Standard Weight 204.2 lb Height 67 in Body Mass Index Calculated 31.98 kg/m2 Body Surface Area Calculated 2.04 m2 :55 Temperature 97.9 f Comments: Method: Oral Pulse 60 /min Comments: Pattern: Regular Respiration Rate 18 /min Comments: Pattern: Unlabored BP Systolic 118 mm[Hg] Comments: Patient Position: Sitting; Cuff Location: Left Arm; Cuff Size: Standard BP Diastolic 78 mm[Hg] Comments: Patient Position: Sitting; Cuff Location: Left Arm; Cuff Size: Standard Weight 198 lb Height 67 in Body Mass Index Calculated 31.01 kg/m2 Body Surface Area Calculated 2.01 m2 :35 Temperature 98.2 f Comments: Method: Oral Pulse 64 /min Comments: Pattern: Regular Respiration Rate 16 /min Comments: Pattern: Unlabored BP Systolic 118 mm[Hg] Comments: Patient Position: Sitting; Cuff Location: Left Arm; Cuff Size: Standard BP Diastolic 76 mm[Hg] Comments: Patient Position: Sitting; Cuff Location: Left Arm; Cuff Size: Standard Weight 198.4 lb Height 67 in Body Mass Index Calculated 31.07 kg/m2 Body Surface Area Calculated 2.02 m2 :47 Temperature 97.9 f Comments: Method: Oral Pulse 64 /min Comments: Pattern: Regular Respiration Rate 18 /min Comments: Pattern: Unlabored BP Systolic 126 mm[Hg] Comments: Patient Position: Sitting; Cuff Location: Left Arm; Cuff Size: Large BP Diastolic 74 mm[Hg] Comments: Patient Position: Sitting; Cuff Location: Left Arm; Cuff Size: Large Weight 203 lb Height 67 in Body Mass Index Calculated 31.79 kg/m2 Body Surface Area Calculated 2.04 m2 :10 Pulse 60 /min Comments: Pattern: Regular Respiration Rate 16 /min Comments: Pattern: Unlabored BP Systolic 122 mm[Hg] Comments: Patient Position: Sitting; Cuff Location: Left Arm; Cuff Size: Standard BP Diastolic 78 mm[Hg] Comments: Patient Position: Sitting; Cuff Location: Left Arm; Cuff Size: Standard Weight 205.5 lb :18 Pulse 64 /min Comments: Pattern: Regular Respiration Rate 18 /min Comments: Pattern: Unlabored BP Systolic 126 mm[Hg] Comments: Patient Position: Sitting; Cuff Location: Left Arm; Cuff Size: Standard BP Diastolic 68 mm[Hg] Comments: Patient Position: Sitting; Cuff Location: Left Arm; Cuff Size: Standard Weight 205.3125 lb :06 Pulse 70 /min Comments: Pattern: Regular Respiration Rate 16 /min Comments: Pattern: Unlabored BP Systolic 118 mm[Hg] Comments: Patient Position: Sitting; Cuff Location: Left Arm; Cuff Size: Standard BP Diastolic 78 mm[Hg] Comments: Patient Position: Sitting; Cuff Location: Left Arm; Cuff Size: Standard Weight 204 lb :01 Pulse 70 /min Comments: Pattern: Regular Respiration Rate 16 /min Comments: Pattern: Unlabored BP Systolic 118 mm[Hg] Comments: Patient Position: Sitting; Cuff Location: Left Arm; Cuff Size: Large BP Diastolic 78 mm[Hg] Comments: Patient Position: Sitting; Cuff Location: Left Arm; Cuff Size: Large Weight 194 lb Height 0 in Head Circumference 0.00 cm :22 Pulse 62 /min Comments: Pattern: Regular Respiration Rate 16 /min Comments: Pattern: Unlabored BP Systolic 120 mm[Hg] Comments: Patient Position: Sitting; Cuff Location: Left Arm; Cuff Size: Standard BP Diastolic 72 mm[Hg] Comments: Patient Position: Sitting; Cuff Location: Left Arm; Cuff Size: Standard Weight 0 lb Height 0 in Head Circumference 0.00 cm :49 Temperature 98.2 f Comments: Method: Oral Pulse 70 /min Comments: Pattern: Regular Respiration Rate 16 /min Comments: Pattern: Unlabored BP Systolic 122 mm[Hg] Comments: Patient Position: Sitting; Cuff Location: Left Arm; Cuff Size: Standard BP Diastolic 78 mm[Hg] Comments: Patient Position: Sitting; Cuff Location: Left Arm; Cuff Size: Standard Weight 0 lb Height 0 in Head Circumference 0.00 cm :32 Temperature 98.4 f Comments: Method: Oral Pulse 70 /min Comments: Pattern: Regular Respiration Rate 16 /min Comments: Pattern: Unlabored BP Systolic 120 mm[Hg] Comments: Patient Position: Sitting; Cuff Location: Left Arm; Cuff Size: Standard BP Diastolic 78 mm[Hg] Comments: Patient Position: Sitting; Cuff Location: Left Arm; Cuff Size: Standard Weight 0 lb Height 0 in Head Circumference 0.00 cm :17 Pulse 68 /min Comments: Pattern: Regular Respiration Rate 16 /min Comments: Pattern: Unlabored BP Systolic 122 mm[Hg] Comments: Patient Position: Sitting; Cuff Location: Left Arm; Cuff Size: Large BP Diastolic 78 mm[Hg] Comments: Patient Position: Sitting; Cuff Location: Left Arm; Cuff Size: Large Weight 191 lb Height 0 in Head Circumference 0.00 cm :52 Temperature 97.8 f Comments: Method: Oral Pulse 72 /min Comments: Pattern: Regular Respiration Rate 18 /min Comments: Pattern: Unlabored BP Systolic 120 mm[Hg] Comments: Patient Position: Sitting; Cuff Location: Left Arm; Cuff Size: Standard BP Diastolic 80 mm[Hg] Comments: Patient Position: Sitting; Cuff Location: Left Arm; Cuff Size: Standard Weight 200.0188 lb Height 0 in Head Circumference 0.00 cm :32 Temperature 98.4 f Comments: Method: Oral Pulse 70 /min Comments: Pattern: Regular Respiration Rate 18 /min Comments: Pattern: Unlabored BP Systolic 120 mm[Hg] Comments: Patient Position: Sitting; Cuff Location: Left Arm; Cuff Size: Standard BP Diastolic 80 mm[Hg] Comments: Patient Position: Sitting; Cuff Location: Left Arm; Cuff Size: Standard Weight 194 lb Height 0 in Head Circumference 0.00 cm :20 Temperature 97.7 f Comments: Method: Oral Pulse 68 /min Comments: Pattern: Regular Respiration Rate 20 /min Comments: Pattern: Unlabored BP Systolic 122 mm[Hg] Comments: Patient Position: Sitting; Cuff Location: Left Arm; Cuff Size: Standard BP Diastolic 74 mm[Hg] Comments: Patient Position: Sitting; Cuff Location: Left Arm; Cuff Size: Standard Weight 189 lb Height 0 in Head Circumference 0.00 cm :37 Temperature 98 f Comments: Method: Oral Pulse 64 /min Comments: Pattern: Regular Respiration Rate 18 /min Comments: Pattern: Unlabored BP Systolic 102 mm[Hg] Comments: Patient Position: Sitting; Cuff Location: Left Arm; Cuff Size: Standard BP Diastolic 78 mm[Hg] Comments: Patient Position: Sitting; Cuff Location: Left Arm; Cuff Size: Standard Weight 193 lb Height 0 in Head Circumference 0.00 cm Results Date Description Value Details :29 HgA1C , Office (43146) Comments: 5.8 HgA1C , Office 5.8 % (Normal) Range: 4.6 - 7.1 :39 HEPATITIS C ANTIBODY (42649) Comments: PATIENT NOT FASTINGPERFORMED BY: [facility] Mdmqsl6161 [facility] [id number] Hep C Virus Ab <0.1 {s/co_ratio} (Normal) Range: 0.0-0.9 Comments: Negative: < 0.8 Indeterminate: 0.8 - 0.9 Positive: > 0.9 . The CDC recommends that a positive HCV antibody result be followed up with a HCV Nucleic Acid Amplification test (087446). 82-Xtz-768583:27 HgA1C , Office (21241) HgA1C , Office 5.7 % (Normal) Range: 4.6 - 7.1 87-Vsc-682157:27 Blood Glucose , Office (09258) Blood Glucose , Office 96 (Normal) 95-Aoy-39528:00 Fluid/Washing See Note (Normal) Comments: [facility] [id number] [place], [address] Comments: Patient: PARIS LEIVA : 1950 (67/F) Acct Num: [id number] Phys: Nik Chicas MD Unit Num: [id number] Loc: Specimen: [id number] Received: 11/28/17 - 1016 Spec Type: Fluid TISSUES TISSUES: A. Thyroid gland, NOS B. Thyroid isthmus C. Thyroid gland, NOS COMMENT The specimen is evaluated at the time of thyroid FNA by Dr. Mercado. Immediate Evaluation = A. Follicular cells present. B. Follicular cells present. C. Follicular cells present. Case has been reviewed in consultation with Dr. Gage mcghee who concurs with the abovediagnosis. IDC:SJ CYTOLOGY GROSS A - Received is 0.5 ml of reddish fluid labeled with the patient's name, anddesignated left thyroid. Eight imprints and six paps are made from the submitted fluid and the rest is added to CytoLyt for cell block preparation. Submitted for cytology study. B - Received is 0.5 ml of reddish fluid labeled with the patient's name, and designated isthmus. Six imprints and five paps are made from the submitted fluid and the rest is added to CytoLyt for cell block preparation. Submitted for cytology study. C - Receiv ed is 0.2 ml of reddish fluid labeled with the patient's name, and designated right thyroid. Six imprints and four paps are made from the submitted fluid and the rest is added to CytoLyt for cell block preparation. Submitted for cytology study. / AM:ke 11/28/17 TC:5 CPT: 56797 x3, 69684 x3 CYTOLOGY STUDY Slides are reviewed. DIAGNOSIS CYTOLOGY A. Fine needle aspiration, left thyroid nodule (smears and cell block): Adequate for evaluation. Negative, consistent with benign follicular nodule. B. Fine needle aspiration, isthmus nodule (smears and cell block): Adequate for evaluation. Negative, consistent with benign colloid nodule. C. Fine needle aspiration, right thyroid lobe (smears and cell block): Adequate for evaluation. Negativ e, consistent with benign follicular nodule. AM:ke 11/29/17 HEADER OPERATION: Ultrasound-guided thyroid biopsy PRE-OP DIAGNOSIS: Multinodular goiter E04.2 TISSUE SUBMITTED: A Left thy roid, B Isthmus, C Right thyroid Signed Lucho Jess 11/29/17 <signature on file> 74-Ecv-465776:10 HgA1C , Office (71915) HgA1C , Office 5.6 % (Normal) Range: 4.6 - 7.1 80-Mbg-006693:09 Blood Glucose , Office (08205) Blood Glucose , Office 102 (Normal) 25-Rwr-779618:00 HgA1C , Office (46509) Comments: 5.7 HgA1C , Office 5.7 % (Normal) Range: 4.6 - 7.1 69-Gnd-205928:23 Blood Glucose , Office (73656) Comments: 106 Blood Glucose , Office 105 (Normal) 04-Swv-58284:00 CYTOSPIN ON FLUID See Note (Normal) Comments: [facility] [id number] [facility] [place], [place], [address] Comments: Patient: PARIS LEIVA : 1950 (66/F) Acct Num: [id number] Phys: Cheng WISE,Erasmo Unit Num: [id number] Loc: [facility] Specimen: [id number] Received: 12/06/16 - 1426 Spec Ty pe: CYSPIN FL TISSUES TISSUES: CYTOLOGY GROSS Received is 80 ml of yellow, clear fluid labeled with the patient's name and DOBand designated per the requisition as urine. Submitte d for cytology preparation. 2/23/17 TC:5 CPT: 96473 CYTOLOGY STUDY Slides are reviewed. DIAGNOSIS CYTOLOGY Urine for cytology (cytospin): Negative for malignant cells. AM:rg HEADER OPERATION: Not noted PRE-OP DIAGNOSIS: D30.3 TISSUE SUBMITTED: Urine for cytology Signed Lucho Jess 12/07/16 <signat ure on file> 82-Hyy-116386:03 URINE OLIVER CULTURE-ALYSA COL Comments: PATIENT NOT FASTINGPERFORMED BY: [facility]igh9341 [facility] [id number] Information: SRC:UC COUNT (96131) Result 1 MUG (Normal) Comments: Mixed urogenital flora1,000 Colonies/mL Urine Culture,Comprehensive Final report (Normal) 31-Jly-671857:57 Urinalysis, Office (49762) UA - LEUKOCYTE ESTERASE Trace (Normal) UA - NITRITE Negative (Normal) URINE UROBILINGN ALYSA TIMED Normal mg/dL (Normal) UA - PROTEIN Negative mg/dL (Normal) UA - PH 5 (Abnormal) UA - BLOOD Hemolyzed Small (Normal) UA - SPECIFIC GRAVITY 1.020 (Normal) UA - KETONES Negative mg/dL (Normal) UA - BILIRUBIN Negative (Normal) UA - GLUCOSE Negative (Normal) 90-Ayn-058781:06 HgA1C , Office (85274) HgA1C , Office 5.6 % (Normal) Range: 4.6 - 7.1 :06 Blood Glucose , Office (08907) Blood Glucose , Office 138 (Normal) 83-Plv-192219:03 HgA1C , Office (88053) HgA1C , Office 5.7 % (Normal) Range: 4.6 - 7.1 :29 HgA1C , Office (89499) HgA1C , Office 5.9 % (Normal) Range: 4.6 - 7.1 :19 BLADDER TUR See Note (Normal) Comments: [facility] [address] [place], [place], [id number] Comments: Patient: PARIS LEIVA : 1950 (65/F) Acct Num: [id number] Phys: Cheng WISE,Erasmo Unit Num: [id number] Loc: [facility] [place] Specimen: [id number] Received: 07/22/15 - 1310 Spec Type : TURB TISSUES TISSUES: COMMENT Correlation with clinical, cystoscopic findings and appropriate follow up are necessary. Case has been reviewed in consultation with Dr. Mercado who concurs with the above diagnosis. IDC:AM GROSS DESCRIPTION Received is one container labeled with the patient name and designated bladder tumor. The specimen consists of two minute fragments o f pace soft tissue measuring in aggregate less than 0.1 cm in greatest dimension. The specimen is totally submitted in one cassette. / JONA:qi 07/22/15 TC:3 CPT: 73370 HEADER OPERATION: Cysto, bl adder tumor PRE-OP DIAGNOSIS: Bladder tumor TISSUE SUBMITTED: Bladder tumor MICROSCOPIC DESCRIPTION Slides are reviewed. MICROSCOPIC DIAGNOSIS Bladder tumor, biopsy: Fragments of u rothelial mucosa with mild chronic inflammation. Negative for malignancy in the submitted specimen. SJ:qi 07/25/15 Signed Abram Loya 07/25/15 <signature on file> 22-Wpf-025332:10 Serum Creatinine AND GFR Comments: Test performed at:[address] [place] [address] EST GFR - AA 70 mL/min (Normal) EST GFR 58 mL/min (Abnormal) CREAT,SERUM 1.01 mg/dL (Normal) Range: 0.55-1.20 Comments: Please note revised CREATININE reference range bcyyqoxow70/22/2015. 09-Sut-089682:15 Cytology, Body Fluid / CSF Comments: Specimen Source: URINETest performed at:[facility] [address] [place], [place] [address] CYTOLOGY,BF/CSF SEE PATHOLOGY REPORT Comments: Specimen submitted to Anatomical Pathology Department fortesting. (Normal) 35-Twd-37647:00 CYTOSPIN ON FLUID See Note (Normal) Comments: Test performed at:[address] [place] [address] Comments: Patient: PARIS LEIVA : 1950 (64/F) Acct Num: [id number] Phys: Cheng WISE,Jamaal Farias Unit Num: [id number] Loc: [facility] Specimen: [id number] Received: 06/06/15 - 1515 Spec T ype: CYSPIN FL TISSUES TISSUES: COMMENT The specimen contains acute inflammatory cells. Clinical correlation is suggested. CULTURE RESULTS No results available. CYTOLOGY Pritesh PADILLA Received is 80 ml of dark yellow cloudy fluid designated urine. Submitted for cytology preparation. / 06/07/15 TC:2 CPT: 01851 CYTOLOGY STUDY Slides are reviewed. DIAGNOSIS CYTOLO GY Urine for cytology (cytospin): Negative for malignant cells. AM: 06/08/15 HEADER OPERATION: Not noted PRE-OP DIAGNOSIS: Hematuria TISSUE SUBMITTED: Urine cytology Sign ed [facility] 06/08/15 <signature on file> 9-Pxi-743094:00 Urinalysis, Office (06838) UA - LEUKOCYTE ESTERASE Negative (Normal) UA - NITRITE Negative (Normal) URINE UROBILINGN ALYSA TIMED 2 mg/dL (Normal) UA - PROTEIN Negative mg/dL (Normal) UA - PH 5.0 (Normal) UA - BLOOD Non Hemolyzed Moderate (Normal) UA - SPECIFIC GRAVITY 1.030 (Abnormal) UA - KETONES 15 mg/dL (Abnormal) UA - BILIRUBIN Negative (Normal) UA - GLUCOSE Negative (Normal) 0-Nih-605457:10 Blood Glucose , Office (30728) Blood Glucose , Office 129 (Normal) 74-Mpy-708247:36 Pap IG Comments: Source.............Cervical;EndocervicalOther..............Post MenopausalNo. of containers..01 CYTYC Thin Prep VialPATIENT NOT FASTINGPERFORMED BY: =G [facility] [address] [place] [address] (Image [id number] BY: WB [facility] [address] [id number] Guided) Note: PAPSMR (Normal) Comments: The Pap smear is a screening test designed to aid in the detection ofpremalignant and malignant conditions of the uterine cervix. It is not adiagnostic procedure and should not be used as the sole mean s of detectingcervical cancer. Both false-positive and false-negative reports do occur. . See Note . (Normal) DIAGNOSIS: SPRCS (Normal) Comments: NEGATIVE FOR INTRAEPITHELIAL LESION AND MALIGNANCY.CELLULAR CHANGES ASSOCIATED WITH ATROPHY ARE PRESENT.Satisfactory for evaluation. Endocervical component may not bedistinguished in cases of atrophy.V 70.0 ; Routine general medical examination at health care facilityGeno Norton Gear Lapper (ASCP) 39-Xly-597794:36 Thin Comments: Source.............Cervical;EndocervicalOther..............Post MenopausalNo. of containers..01 CYTYC Thin Prep VialPATIENT NOT FASTINGPERFORMED BY: =G [facility] [address] Prep Pap [id number] BY: WB [facility] [address] [id number] Information: [id number] (66319) Age Gdln ACOG Testing AGE4 (Normal) Comments: <21 or >65 or no age provided 28-Yzk-150166:01 HgA1C , Office (54659) HgA1C , Office 5.9 % (Normal) Range: 4.6 - 7.1 52-Muq-679932:01 Blood Glucose , Office (60377) Blood Glucose , Office 99 (Normal) 31-Ryr-062090:51 HgA1C , Office (30575) HgA1C , Office 6.2 % (Normal) Range: 4.6 - 7.1 60-Twe-445661:08 CALCIFEDIOL (37841) Comments: PATIENT NOT FASTINGPERFORMED BY: [facility] Uvlljl0414 [facility] [id number] Information: [id number], [id number] Vitamin D, 25-Hydroxy 23.7 ng/mL (Abnormal) Range: 30.0-100.0 Comments: Vitamin D deficiency has been defined by the [place] of[employer] and an Endocrine Society practice guideline as alevel of serum 25-OH vitamin D less than 20 ng/mL (1,2).The Endocrine Society went on to further define vitamin Dinsufficiency as a level between 21 and 29 ng/mL (2).1. IOM ([place] of [employer]). 2010. Dietary reference intakes for calcium and D. [place]cd[place]: The National Academies Press.2. Bianca MF, Hermann CARBAJAL, Luis Alberto SCHNEIDER, et al. Evaluation, treatment, and prevention of vitamin D deficiency: an Endocrine Society clinical practice guideline. JCEM. 2010; 96(7):1911-30. :50 HgA1C , Office (76308) HgA1C , Office 5.9 % (Normal) Range: 4.6 - 7.1 :50 Blood Glucose , Office (41803) Blood Glucose , Office 84 (Normal) :21 OLIVER CULTURE-OTHER (57483) Comments: PATIENT NOT FASTINGPERFORMED BY: [facility] HospitalLyrtau6132 [facility] [id number] Information: SRC:NEIDA [id number] Result 1 RRF (Normal) Comments: Routine respiratory max Upper Respiratory Culture Final report (Normal) :10 HgA1C , Office (31800) HgA1C , Office 5.8 % (Normal) Range: 4.6 - 7.1 :10 Blood Glucose , Office (46280) Blood Glucose , Office 117 (Normal) :32 HgA1C , Office (48140) HgA1C , Office 6.0 % (Normal) Range: 4.6 - 7.1 :32 Blood Glucose , Office (02451) Blood Glucose , Office 141 (Normal) Comments: just ate :59 HgA1C , Office (53149) HgA1C , Office 6.0 % (Normal) Range: 4.6 - 7.1 :59 Blood Glucose , Office (26383) Blood Glucose , Office 125 (Normal) :50 PARATHORMONE (29743) Comments: PATIENT WAS FASTINGPERFORMED BY: [facility]6370 [facility] [id number] PTH, Intact 39 pg/mL (Normal) Range: 15-65 :50 LIPID PANEL (80534) Comments: PATIENT WAS FASTINGPERFORMED BY: [facility]6370 [facility] [id number] LDL/HDL Ratio 1.5 {ratio_units} (Normal) Range: 0.0-3.2 LDL Cholesterol Calc 104 mg/dL (Abnormal) Range: 0-99 VLDL Cholesterol Margarito 18 mg/dL (Normal) Range: 5-40 HDL Cholesterol 70 mg/dL (Normal) Comments: According to ATP-III Guidelines, HDL-C >59 mg/dL is considered anegative risk factor for CHD. Triglycerides 90 mg/dL (Normal) Range: 0-149 Cholesterol, Total 192 mg/dL (Normal) Range: 100-199 :50 METABOLIC PANEL, Comments: PATIENT WAS FASTINGPERFORMED BY: [facility] [id number] Information: [id number] COMPREHENSIVE (26701) ALT (SGPT) 20 [iU]/L (Normal) Range: 0-40 AST (SGOT) 22 [iU]/L (Normal) Range: 0-40 Alkaline Phosphatase, S 77 [iU]/L (Normal) Range: 25-165 Bilirubin, Total 0.3 mg/dL (Normal) Range: 0.0-1.2 A/G Ratio 1.9 (Normal) Range: 1.1-2.5 Globulin, Total 2.4 g/dL (Normal) Range: 1.5-4.5 Albumin, Serum 4.5 g/dL (Normal) Range: 3.6-4.8 Protein, Total, Serum 6.9 g/dL (Normal) Range: 6.0-8.5 Calcium, Serum 9.7 mg/dL (Normal) Range: 8.6-10.2 Carbon Dioxide, Total 26 mmol/L (Normal) Range: 20-32 Chloride, Serum 106 mmol/L (Normal) Range: 97-108 Potassium, Serum 4.2 mmol/L (Normal) Range: 3.5-5.2 Sodium, Serum 144 mmol/L (Normal) Range: 134-144 BUN/Creatinine Ratio 23 (Normal) Range: 11-26 eGFR If Africn Am 86 mL/min/1.73 (Normal) Comments: Note: A persistent eGFR <60 mL/min/1.73 m2 (3 months or more) mayindicate chronic kidney disease. An eGFR >59 mL/min/1.73 m2 with anelevated urine protein also may indicate chronic kidney disease.Calculated using CKD-EPI formula. eGFR If NonAfricn Am 74 mL/min/1.73 (Normal) Creatinine, Serum 0.84 mg/dL (Normal) Range: 0.57-1.00 BUN 19 mg/dL (Normal) Range: 8-27 Glucose, Serum 104 mg/dL (Abnormal) Range: 65-99 70-Anr-255542:08 [facility] [id number] Comments: CYTOLOGY INFORMATION:- CLINICAL INFORMATION: - DATE LMP/MENOPAUSE: MENOPAUSE- COLLECTION VIAL: Thin Prep Vial- MARKETING ACCOUNT MANAGER SOURCE: - COLLECTION TECHNIQUE: HPV HC,HGH . (Normal) Comments: The quantity of specimen remaining in the vial after Papslide preparation was less than the 4 mL minimum cellsuspension required. Low sample cellularity may be thecause. See HPV ASR test result.This hi RISK gh-risk HPV test detects thirteen high-risk types(16/18/31/33/35/39/45/51/52/56/58/59/68) withoutdifferentiation. .HPV ASR: NEGATIVEThis test de tects fourteen high-risk HPV types(16/18/31/33/35/39/45/51/52/56/58/59/66/68) withoutdifferentiation. This test was developed and its performancecharacteristics determined by [facility]. It has not beencle ared or approved by the U.S. Food and DrugAdministration. The FDA has determined that such clearanceor approval is not necessary. This test is used for clinicalpurposes. It should not be regarded as inv estigational orfor research. RAYMOND SYED [birth year] 7449 PAPSMR Comment Comments: The Pap smear is a screening test designed to aid in thedetection of premalignant and malignant conditions of theuterine cervix. It is not a diagnostic procedure andshould not be used as the sole means (Normal) of detecting cervicalcancer. Both false-positive and false-negative reports dooccur. . COMM . (Normal) DIAGN Comment Comments: NEGATIVE FOR INTRAEPITHELIAL LESION AND MALIGNANCY.CELLULAR CHANGES ASSOCIATED WITH ATROPHY ARE PRESENT.Satisfactory for evaluation. Endocervical and/or squamous metaplasticcells (endocervical componen (Normal) t) are present.Freida Forman, Gear Lapper (ASCP)This liquid based ThinPrep(R) pap test was screened withthe use of an image guided system. :00 YINKA and PE, Random Urine Comments: PERFORMED BY: [facility] [id number] Gamma Globulin, U 20.4 % (Normal) Immunofixation Result, Urine UPEIP (Normal) Comments: No monoclonality detected.Protein electrophoresis scan will follow via computer, mail, orcourier delivery. M-Homar, % Not Observed % (Normal) Mrsba-6-Tgqupqyy, U 21.5 % (Normal) Beta Globulin, U 23.0 % (Normal) Ildlu-2-Hylntwvo, U 7.3 % (Normal) Albumin, U 27.8 % (Normal) Protein,Total,Urine 4.1 mg/dL (Normal) Range: 0.0-15.0 5-Rnr-902010:00 Urinalysis, Routine Comments: PERFORMED BY: [facility] [id number] Bilirubin Negative (Normal) Microscopic Examination MICRON (Normal) Comments: Microscopic follows if indicated. Nitrite, Urine Negative (Normal) Urobilinogen,Semi-Qn 0.2 mg/dL (Normal) Range: 0.0-1.9 Glucose Negative (Normal) Ketones Negative (Normal) Occult Blood Negative (Normal) Protein Negative (Normal) WBC Esterase Negative (Normal) Appearance Clear (Normal) pH 7.0 (Normal) Range: 5.0-7.5 Urine-Color Yellow (Normal) Specific [place] 1.024 (Normal) Range: 1.005-1.030 54-Vfa-755589:35 Calcium, 24Hr Urine Comments: PERFORMED BY: [employer] [facility] [id number] Information: 04/26@8AM 04/27@8AM Calcium, Urine 24hr 210.0 {mg/24_hr} (Normal) Range: 100.0-300.0 Calcium, Urine 21.0 mg/dL (Normal) :25 Blood Glucose , Office (22780) Blood Glucose , 113 (Normal) Office : Calcium, Serum 10.2 mg/dL (Normal) Comments: PERFORMED BY: [employer] [id number] Range: 8.6-10.2 :00 Protein Electro, Random Urine Comments: PERFORMED BY: [facility] [id number] Gamma Globulin, U 18.9 % (Normal) M-Homar, % Not Observed % (Normal) Please note: SPRCS (Normal) Comments: Protein electrophoresis scan will follow via computer, mail, orcourier delivery. Iiwvw-3-Svzaaotu, U 6.1 % (Normal) Zchbw-0-Zssplkvi, U 16.1 % (Normal) Beta Globulin, U 33.4 % (Normal) Albumin, U 25.5 % (Normal) Protein,Total,Urine 7.9 mg/dL (Normal) Range: 0.0-15.0 :00 Protein Electro.,S Comments: PERFORMED BY: [employer] [id number] A/G Ratio 1.5 (Normal) Range: 0.7-2.0 Globulin, Total 2.8 g/dL (Normal) Range: 2.0-4.5 M-Homar Not Observed g/dL (Normal) Please note: SPRCS (Normal) Comments: Protein electrophoresis scan will follow via computer, mail, orcourier delivery. Rnmck-8-Ihxsrecb 0.1 g/dL (Normal) Range: 0.1-0.4 Jvbif-2-Ejmgvlbt 0.7 g/dL (Normal) Range: 0.4-1.2 Beta Globulin 1.0 g/dL (Normal) Range: 0.6-1.3 Gamma Globulin 0.9 g/dL (Normal) Range: 0.5-1.6 Albumin 4.1 g/dL (Normal) Range: 3.2-5.6 Protein, Total, Serum 6.9 g/dL (Normal) Range: 6.0-8.5 : PTH, Intact 87 pg/mL (Abnormal) Comments: PERFORMED BY: [facility] [id number] Range: 15-65 7-Akz-419863:12 HgA1C , Office (95668) HgA1C , Office 5.8 % (Normal) Range: 4.6 - 7.1 Comments: aw :55 Thin prep Pap Comments: Source.............Cervical;EndocervicalLMP / Prev Treat...AER=[id number]. of containers..01 CYTYC Thin Prep VialPATIENT NOT FASTINGClinical Information: ADD [id number] PERFORMED BY: [facility] ([address]) [address] [id number] . . (Normal) DIAGNOSIS: SPRCS (Normal) Comments: NEGATIVE FOR INTRAEPITHELIAL LESION AND MALIGNANCY.CELLULAR CHANGES ASSOCIATED WITH INFLAMMATION ARE PRESENT.Satisfactory for evaluation. Endocervical and/or squamous metaplasticcells (endocervical com ponent) are present.V72.31 ; Routine gynecological examinationMarissa Del Cid Gear Lapper (ASCP) Note: PAPSMR (Normal) Comments: The Pap smear is a screening test designed to aid in the detection ofpremalignant and malignant conditions of the uterine cervix. It is not adiagnostic procedure and should not be used as the sole mean s of detectingcervical cancer. Both false-positive and false-negative reports do occur. .The HPV DNA reflex criteria were not met with this specimen resulttherefore, no HPV testing was performed. . Plan of Care Name Dates Details Instructions Need for Tdap vaccination (Renamed from Need for ryiemgiuqr-knhrncs-dlwzlowhz (Tdap) vaccine, adult/adolescent) : Follow up in 3 months Indication: Need for Tdap vaccination (Renamed from Need for dtryarskus-vkmylaa-frfbkbtjh (Tdap) vaccine, adult/adolescent) Vertigo : *Vertigo Education Indication: Vertigo Nonsmoker : Eprescribed prescriptions (G8553) Indication: Nonsmoker BMI 32.0-32.9,adult : Eprescribed prescriptions (G8553) Indication: BMI 32.0-32.9,adult Annual visit for general adult medical examination without abnormal findings : *Well Female Maintenance (SMC) Indication: Annual visit for general adult medical examination without abnormal findings Annual visit for general adult medical examination without abnormal findings : Self breast exam Indication: Annual visit for general adult medical examination without abnormal findings Annual visit for general adult medical examination without abnormal findings : fall reduction handout Indication: Annual visit for general adult medical examination without abnormal findings Annual visit for general adult medical examination without abnormal findings : elderly packet given Indication: Annual visit for general adult medical examination without abnormal findings Annual visit for general adult medical examination without abnormal findings : advance planning information Indication: Annual visit for general adult medical examination without abnormal findings Hypercholesterolemia : Follow up in 6 months Indication: Hypercholesterolemia Other abnormal glucose : Eprescribed prescriptions (G8553) Indication: Other abnormal glucose Rash : Follow up in 6 months Indication: Rash Other abnormal glucose : Eprescribed prescriptions (G8553) Indication: Other abnormal glucose Hyperparathyroidism, primary : Reviewed Lab Indication: Hyperparathyroidism, primary Hyperparathyroidism, primary : Reviewed Lab Indication: Hyperparathyroidism, primary Thyroid Nodule : Follow up in 6 months Indication: Thyroid Nodule Bladder tumor : Follow up in 2 weeks get lab slip for blood to be done fasting and return for follow up Indication: Bladder tumor Other abnormal glucose : Diet, Exercise, and Wt loss Indication: Other abnormal glucose Other abnormal glucose : Eprescribed prescriptions (G8553) Indication: Other abnormal glucose BMI 31.0-31.9,adult : Eprescribed prescriptions (G8553) Indication: BMI 31.0-31.9,adult Fatigue : *fatigue education Indication: Fatigue BMI 31.0-31.9,adult : Follow up in 6 months Indication: BMI 31.0-31.9,adult BMI 31.0-31.9,adult : Eprescribed prescriptions (G8553) Indication: BMI 31.0-31.9,adult Encounter for Medicare annual wellness exam : fall reduction handout Indication: Encounter for Medicare annual wellness exam Encounter for Medicare annual wellness exam : elderly packet given Indication: Encounter for Medicare annual wellness exam Encounter for Medicare annual wellness exam : advance planning information Indication: Encounter for Medicare annual wellness exam Other abnormal glucose : Eprescribed prescriptions (G8553) Indication: Other abnormal glucose Hive : Hives: allergic skin reaction Indication: Hive Hive : Eprescribed prescriptions (G8553) Indication: Hive Encounter for Medicare annual wellness exam : Pap/Pelvic/Bimanual/Rectal/Breast Exam was done. Indication: Encounter for Medicare annual wellness exam Encounter for Medicare annual wellness exam : advance planning information Indication: Encounter for Medicare annual wellness exam INFLAMED SEBORRHEIC KERATOSIS : Cryotherapy Indication: INFLAMED SEBORRHEIC KERATOSIS Other abnormal glucose : Eprescribed prescriptions (G8553) Indication: Other abnormal glucose Rash : Follow up in 2 weeks Indication: Rash Hypercholesterolemia : High Cholesterol (Hypercholesterolemia) *: cardiovascular health Indication: Hypercholesterolemia Hypercholesterolemia : High Cholesterol (Hypercholesterolemia) *: diet Indication: Hypercholesterolemia Well woman exam : *Well Female Maintenance (KF) Indication: Well woman exam Well woman exam : Pap/Pelvic/Bimanual/Rectal/Breast Exam was done. Indication: Well woman exam Well woman exam : Shingles Vaccine Education 2005 Indication: Well woman exam Well woman exam : Well Female Maintenance (KF) Indication: Well woman exam Well woman exam : Self Breast Exam Education Indication: Well woman exam Well woman exam : Well Female Maintenance (KF) Indication: Well woman exam Well woman exam : Pap/Pelvic/Bimanual/Rectal/Breast Exam was done. Indication: Well woman exam Hypercholesterolemia : FOLLOW UP IN 3 MONTHS Indication: Hypercholesterolemia Hypercholesterolemia : Cholesterol - Nonprescription Treatment Indication: Hypercholesterolemia Planned Observations Metabolic Panel, Comprehensive (62362)Indication: Vertigo On: 5-Yoo-238296:15 Request PARATHORMONE (04145)Indication: Hyperparathyroidism On: 1-Gjz-071757:13 Request CALCIFEDIOL (76877)Indication: Vitamin D deficiency On: 7-Oea-471460:05 Request CBC & PLATELETS (AUTO) (63336)Indication: Anemia On: 13-Apr-2019 Request LIPID PANEL (32967)Indication: Hypercholesterolemia On: 10-Zkv-327067:36 Request Comments: Oct 2018 CALCIFEDIOL (56936)Indication: Hyperparathyroidism, primary On: 40-Wkd-389253:35 Request Comments: Oct 2018 PARATHORMONE (44616)Indication: Hyperparathyroidism, primary On: 52-Ftx-883363:35 Request Comments: Oct 2018 CBC & PLATELETS (AUTO) (78652)Indication: Other abnormal glucose On: :35 Request Comments: Oct 2018 Metabolic Panel, Comprehensive (06366)Indication: Other abnormal glucose On: :35 Request Comments: Oct 2018 PARATHORMONE (89576)Indication: Hyperparathyroidism, primary On: :19 Request Comments: Oct 2017 PARATHORMONE (11464)Indication: Hyperparathyroidism, primary On: :19 Request Comments: March 2017 URINALYSIS (54310)Indication: Hematuria On: :11 Request Comments: March 2017 URINALYSIS (08570)Indication: Hematuria On: :09 Request Comments: Oct 2017 CBC & PLATELETS (AUTO) (77520)Indication: Hypercholesterolemia On: :08 Request Comments: Oct 2017 CBC & PLATELETS (AUTO) (26919)Indication: Hypercholesterolemia On: :07 Request Comments: March 2017 CALCIFEDIOL (52691)Indication: Post-menopausal On: :07 Request Comments: oct 2017 CALCIFEDIOL (35932)Indication: Post-menopausal On: :07 Request Comments: March 2017 Lipid Panel (14901)Indication: Hypercholesterolemia On: :06 Request Comments: Oct 2017 Metabolic Panel, Comprehensive (99091)Indication: Other abnormal glucose On: :06 Request Comments: Oct 2017 Metabolic Panel, Comprehensive (10602)Indication: Other abnormal glucose On: :06 Request Comments: March 2017 Lipid Panel (81065)Indication: Hypercholesterolemia On: :05 Request Comments: March 2017 CALCIUM SERUM (37144)Indication: Vitamin D deficiency On: :44 Request CALCIFEDIOL (80332)Indication: Vitamin D deficiency On: :44 Request URINALYSIS, W/ MICRO (95959)Indication: Hematuria On: :25 Request Comments: KATHYA Anand [facility] PARATHORMONE (34802)Indication: Hyperparathyroidism, primary On: :25 Request LIPID PANEL (68220)Indication: Hypercholesterolemia On: :21 Request Comments: 10/29 CBC, PLATELETS & AUT DIFF (68081)Indication: Goiter On: 20-Umo-940078:20 Request Comments: 10/29 TSH (THYROID STIMULATING HORMONE) (58575)Indication: Goiter On: 09-Wwi-279614:20 Request Comments: 10/29 VITAMIN B-12 (CYANOCOBALAMIN) (66854)Indication: Fatigue On: 09-Izt-541015:20 Request Comments: may 2016 RHEUMATOID FACTOR-QUANT (28720)Indication: Fatigue On: :19 Request Comments: may 2016 Folate (95894)Indication: Fatigue On: :19 Request Comments: may RATE ERYTHROCYTE (45521)Indication: Fatigue On: :18 Request Comments: oct 2015 METABOLIC PANEL, COMPREHENSIVE (36308)Indication: Fatigue On: :18 Request Comments: october CALCIFIDIOL (65410) VIT D 25Indication: Fatigue On: :17 Request CALCIFEDIOL (25259)Indication: Vitamin D deficiency On: 98-Nwz-640341:00 Request Comments: end may CALCIFEDIOL (76445)Indication: Vitamin D deficiency On: 19-Apr-20168:47 Request CALCIFEDIOL (56608)Indication: Hyperparathyroidism, primary On: 8-Qtd-887413:56 Request PARATHORMONE (99655)Indication: Hyperparathyroidism, primary On: 4-Cnu-728045:56 Request Lipid Panel (53189)Indication: Hypercholesterolemia On: 9-Eta-171520:56 Request Metabolic Panel, Comprehensive (68060)Indication: Hypercholesterolemia On: 6-Zpq-463028:56 Request HgA1C , Office (69869)Indication: Other abnormal glucose On: 0-Qgz-973452:11 Request URINALYSIS, W/ MICRO (22315)Indication: Hypercholesterolemia On: 72-Vte-557710:42 Request METABOLIC PANEL, COMPREHENSIVE (76024)Indication: Hypercholesterolemia On: 57-And-967319:42 Request LIPID PANEL (00193)Indication: Hypercholesterolemia On: 17-Kmd-157867:42 Request CBC W/AUTO DIFF WBC (33214)Indication: Hypercholesterolemia On: 93-Oag-871546:42 Request CBC WITH MANUAL DIFF (03968)Indication: Other abnormal glucose On: :17 Request METABOLIC PANEL, COMPREHENSIVE (67482)Indication: Hypercholesterolemia On: :17 Request LIPID PANEL (61725)Indication: Hypercholesterolemia On: :17 Request Blood Glucose , Office (83100)Indication: Other abnormal glucose On: 95-Fwg-606125:51 Request METABOLIC PANEL, COMPREHENSIVE (97608)Indication: Hypercholesterolemia On: :31 Request Comments: in six months (approximately) LIPID PANEL (14157)Indication: Hypercholesterolemia On: :31 Request Comments: in six months (approximately) Rapid Strep Test, Office (01557)Indication: Acute pharyngitis On: 8-Mks-486999:32 Request LIPID PANEL (82629)Indication: Hypercholesterolemia On: :28 Request METABOLIC PANEL, COMPREHENSIVE (15261)Indication: Hypercholesterolemia On: :28 Request CBC WITH MANUAL DIFF (58131)Indication: Hypercholesterolemia On: 0-Snw-415460:11 Request LIPID PANEL (61847)Indication: Hypercholesterolemia On: 6-Hgz-220810:10 Request METABOLIC PANEL, COMPREHENSIVE (11894)Indication: Hyperparathyroidism, primary On: 5-Vai-452752:10 Request METABOLIC PANEL, COMPREHENSIVE (06864)Indication: Hyperparathyroidism, primary On: :20 Request LIPID PANEL (23231)Indication: Hypercholesterolemia On: :20 Request HPV automatic (17436)Indication: Screening for HPV (human papillomavirus) On: 98-Bqf-988834:20 Request Thin prep Pap (86960)Indication: Well woman exam On: 66-Jex-469729:11 Request URINALYSIS (15020)Indication: Unspecified urinary incontinence On: 4-Gae-504291:47 Request IMMUNOFIXATION ELECTROPHORESIS (71053)Indication: Other abnormal finding of urine On: 5-Aoh-430536:35 Request Comments: of urine HEPATIC FUNCTION PANEL (70674)Indication: Hypercholesterolemia On: 27-Jsn-677285:39 Request Comments: in six months (approximately) LIPID PANEL (90951)Indication: Hypercholesterolemia On: 49-Mvj-869963:39 Request Comments: in in six months (approximately) Urine Protein Electrophoresis (UPEP) (47389)Indication: Hypercalcemia On: :38 Request Serum Protein Electrophoresis (SPEP) (27386)Indication: Hypercalcemia On: :38 Request URINE CALCIUM ALYSA TIMED (94710)Indication: Hypercalcemia On: 89-Onv-293557:38 Request Comments: 24 hour PARATHORMONE (53060)Indication: Hypercalcemia On: 58-Tns-391980:31 Request Calcium Serum (01123)Indication: Hypercalcemia On: 36-Toe-168864:30 Request HgA1C , Office (31366)Indication: Impaired fasting glucose On: 30-Gba-186957:25 Request METABOLIC PANEL, COMPREHENSIVE (98633)Indication: Hypercholesterolemia On: 3-Qok-143014:13 Request LIPID PANEL (04190)Indication: Hypercholesterolemia On: 5-Ogw-625463:13 Request Comments: in six months (approximately) CBC, Platelets & Auto Diff (11049)Indication: Hypercholesterolemia On: 9-Lwh-799530:32 Request Metabolic Panel, Comprehensive (89815)Indication: Hypercholesterolemia On: 9-Sro-199242:32 Request Lipid Panel (15889)Indication: Hypercholesterolemia On: 5-Wqb-766931:32 Request HEPATIC FUNCTION PANEL (00665)Indication: Hypercholesterolemia On: 2-Aue-145475:33 Request Lipid Panel (20585)Indication: Hypercholesterolemia On: 3-Lli-114165:33 Request Comments: in six months (approximately) HEPATIC FUNCTION PANEL (11269)Indication: Hypercholesterolemia On: 58-Rrz-821576:05 Request Lipid Panel (84472)Indication: Hypercholesterolemia On: 45-Puy-505800:05 Request Comments: in six months (approximately) Lipid Panel (27687)Indication: Hypercholesterolemia On: 58-Uhf-115212:43 Request Metabolic Panel, Comprehensive (53298)Indication: Hypercholesterolemia On: 66-Qkj-149288:43 Request Thin prep Pap (56543)Indication: Well woman exam On: 57-Fzd-358210:43 Request HEPATIC FUNCTION PANEL (31134)Indication: Hypercholesterolemia On: 7-Jua-840759:27 Request LIPID PANEL (05264)Indication: Hypercholesterolemia On: 7-Hke-068061:27 Request Comments: in three months Planned Encounters Medical; 3 Month FU - On: 26-Jan-2019 13:30 [facility] Raymundo DECKER, Patrica Raymundo DECKER, Ellen Ma Medical; 6 Month FU - On: 27-Apr-2019 13:30 [facility] Ellen Fonseca CNP, CNP, Mary E Planned Procedures US THYROID (28286)By: Almajaronfranco DECKER, On: 24-Nov-2018 Intent Ellen Rodríguez CNP Comments: FAX RESULTS TO DR MARY GARCIA, [facility], surgery TDAP VACCINE >7 IM (90515)By: Raymundo On: 27-Oct-2018 Intent Ellen DECKER CNP, Mary E Ultrasound - ThyroidBy: Raymundo DECKER, On: 27-Oct-2018 Intent Ellen Rodríguez CNP Comments: Schedule for Nov 2018 Flu Vaccine (Quadrivalent) 93148An: On: 24-Jul-2018 Intent Randi Dietz Comments: Lot #[id number]/30/2019Site-L dltd, IMDose prefilled syringegiven by: GEOFF JAMA reviewed and ABN signed MAMMOGRAM BREAST BILATERAL SCREENING On: 15-Nov-2017 Intent DIGITAL (94296)By: Raymundo DECKER Ellen Rodríguez CNP DEXA SCAN AXIAL SKELETON (16496)By: On: 23-Jan-2017 Intent Ellne Fonseca CNP, CNP, Mary E MAMMOGRAM BREAST SCREENING DIGITAL On: 24-Oct-2016 Intent (G0202)By: Michael Kelly MD THYROID ULTRASOUND (07914)By: Robin On: 24-Apr-2016 Intent Michael WISE Comments: 10/30 Ultrasound - ThyroidBy: Becca WISE, On: 21-Oct-2015 Intent Alessandra Varner Comments: copy to Dr[facility] Krishnamurthy [facility] endocrine Flu Vaccine (Quadrivalent) 62374Lw: On: 21-Oct-2015 Intent Alessandra Hudson MD Comments: Lot #:[id number] date:Amount given:0.5mlRoute: IMSite given:L DltdGiven by: Carmelina HUIZAR and ABN signed Quad Flu BILATERAL MAMMOGRAMS (07440)By: On: 21-Oct-2015 Intent Alessandra Hudson MD Solu -Medrol Injection, 125 mg On: 03-Mar-2015 Intent (J2930)By: Alessandra Hudson MD Comments: lot:[id number]:10/17route:IMdose:125MGSite:R glutgiven by: CAROLINE Solu -Medrol Injection, 125 mg On: 03-Mar-2015 Intent (J2930)By: Alessandra Hudson MD DEXA SCAN AXIAL SKELETON (02229)By: On: 04-Oct-2014 Intent Alessandra Hudson MD Comments: postmean[pausal had at [facility] ADMINISTRATION OF INFLUENZA VIRUS On: 04-Oct-2014 Intent VACCINE (G0008)By: Alessandra Hudson MD Flu Vaccine (Quadrivalent) 40401Dt: On: 04-Oct-2014 Intent Alessandra Hudson MD BILATERAL MAMMOGRAMS (35085)By: On: 23-Mar-2014 Intent Alessandra Hudson MD EKG (78531)By: Alessandra Hudson MD On: 22-Sep-2013 Intent Comments: see scanned document of test done to see results reviewed today with patient Eprescribed prescriptions (G8553)By: On: 22-Sep-2013 Intent Long ANESTHESIA ASSOCIATE, Riddhi L Eprescribed prescriptions (G8553)By: On: 22-Sep-2013 Intent Long ANESTHESIA ASSOCIATE, Riddhi L Eprescribed prescriptions (G8553)By: On: 17-Aug-2013 Intent Jamila Garcia Eprescribed prescriptions (G8553)By: On: 16-Mar-2013 Intent Alessandra Hudson MD MAMMOGRAM, SCREENING, BOTH BREASTS On: 16-Mar-2013 Intent (36205)By: Alessandra Hudson MD MAMMOGRAM, SCREENING, BOTH BREASTS On: 07-Feb-2012 Intent (17326)By: Alessandra Hudson MD MAMMOGRAM, SCREENING, BOTH BREASTS On: 20-Feb-2011 Intent (73764)By: Alessandra Hudson MD Comments: march 2011 DXA, BONE DENSITY, AXIAL SKELETON On: 20-Nov-2010 Intent (01853)By: Alessandra Hudson MD MAMMOGRAM, SCREENING, BOTH BREASTS On: 20-Nov-2010 Intent (06499)By: Alessandra Hudson MD MAMMOGRAM, SCREENING, BOTH BREASTS On: 25-Apr-2010 Intent (84903)By: Alessandra Hudson MD MAMMOGRAM, SCREENING, BOTH BREASTS On: 15-Mar-2009 Intent (19230)By: Alessandra Hudson MD IV Lactated Ringers 1000mlBy: On: 17-Sep-2008 Intent CONCEPCION Valencia Comments: Lot #:[id number] date:mount given:1000mlRoute: IVSite given:rt. anticubital Given by: erussell#22 initiated to rt. anticub without difficulty, infused without difficulty patient tolerated with no complaints IV Needle placement (05469)By: On: 17-Sep-2008 Intent CONCEPCION Valencia IV Infusion (92257)By: Erik, On: 17-Sep-2008 Intent CONCEPCION Toradol Injection, 30 mg (J1885)By: On: 17-Sep-2008 Intent Alessandra Hudson MD Comments: Lot #:[id number] date:8-1-5606Wynkrz given:30mg Route: IVSite given:rt. anticub Given by: Dr. Hudson TD Injection , IM (80796)By: On: 14-Sep-2008 Intent Alessandra Hudson MD EKG (00926)By: Alessandra Hudson MD On: 14-Sep-2008 Intent MAMMOGRAM, SCREENING, BOTH BREASTS On: 15-Mar-2008 Intent ([id number])By: Alessandra Hudson MD Pelvic and Breast, Medicare On: 15-Mar-2008 Intent ([id number])By: Alessandra Hudson MD Bone Density StudyBy: Becca WISE, On: 15-Mar-2008 Intent Alessandra Varner Comments: do 2 years from last, estrogen deficient MAMMOGRAM, SCREENING, BOTH BREASTS On: 16-Aug-2006 Intent ([id number])By: Alessandra Hudson MD Planned Medications INJECTION, METHYLPREDNISOLONE SODIUM SUCCINATE, UP TO 125 MG Ordered: 03-Mar-2015 Pending Alessandra Hudson MD INJECTION, METHYLPREDNISOLONE SODIUM SUCCINATE, UP TO 125 MG Ordered: 03-Mar-2015 Pending Alessandra Hudson MD Instructions Name Dates Details Vitamin D deficiency : DISCONTINUED - CALCIFEDIOL (40972) Indication: Vitamin D deficiency Nonsmoker : How to access health information online Indication: Nonsmoker Nonsmoker : How to access health information online - Detail Indication: Nonsmoker Nonsmoker : Patient Instructions Indication: Nonsmoker BMI 32.0-32.9,adult : How to access health information online Indication: BMI 32.0-32.9,adult BMI 32.0-32.9,adult : How to access health information online - Detail Indication: BMI 32.0-32.9,adult BMI 32.0-32.9,adult : Patient Instructions Indication: BMI 32.0-32.9,adult Other abnormal glucose : How to access health information online Indication: Other abnormal glucose Other abnormal glucose : How to access health information online - Detail Indication: Other abnormal glucose Other abnormal glucose : Patient Instructions Indication: Other abnormal glucose Other abnormal glucose : How to access health information online Indication: Other abnormal glucose Other abnormal glucose : How to access health information online - Detail Indication: Other abnormal glucose Other abnormal glucose : Patient Instructions Indication: Other abnormal glucose Anemia : Patient Instructions Indication: Anemia Other abnormal glucose : How to access health information online Indication: Other abnormal glucose Other abnormal glucose : How to access health information online - Detail Indication: Other abnormal glucose Other abnormal glucose : Patient Instructions Indication: Other abnormal glucose BMI 31.0-31.9,adult : How to access health information online Indication: BMI 31.0-31.9,adult BMI 31.0-31.9,adult : How to access health information online - Detail Indication: BMI 31.0-31.9,adult BMI 31.0-31.9,adult : Patient Instructions Indication: BMI 31.0-31.9,adult BMI 31.0-31.9,adult : How to access health information online Indication: BMI 31.0-31.9,adult BMI 31.0-31.9,adult : How to access health information online - Detail Indication: BMI 31.0-31.9,adult BMI 31.0-31.9,adult : Patient Instructions Indication: BMI 31.0-31.9,adult Encounter for Medicare annual wellness exam : How to access health information online Indication: Encounter for Medicare annual wellness exam Encounter for Medicare annual wellness exam : How to access health information online - Detail Indication: Encounter for Medicare annual wellness exam Encounter for Medicare annual wellness exam : Patient Instructions Indication: Encounter for Medicare annual wellness exam Other abnormal glucose : How to access health information online Indication: Other abnormal glucose Other abnormal glucose : How to access health information online - Detail Indication: Other abnormal glucose Other abnormal glucose : Patient Instructions Indication: Other abnormal glucose Hive : How to access health information online Indication: Hive Hive : How to access health information online - Detail Indication: Hive Hive : Patient Instructions Indication: Hive Other abnormal glucose : Patient Instructions Indication: Other abnormal glucose Other abnormal glucose : Patient Instructions Indication: Other abnormal glucose Hypercholesterolemia : Patient Instructions Indication: Hypercholesterolemia Acute pharyngitis : Patient Instructions Indication: Acute pharyngitis Hypercholesterolemia : Patient Instructions Indication: Hypercholesterolemia Advance Directives Name Dates Details Immunization Registry [facility] - Effective on Effective: 25-Jul-201807/25/2018. Expiration date unspecified Encounters Office Visit On: 27-Oct-2018 13:24 Encounter Reason: Follow up for chronic medical issues - The patient feels well with minor complaints (nausea and dizzy spells, one in jun. and one in sep. complaining of visible purple veins in left calf.), has good en End: 27-Oct-2018 14:33 ergy level and is sleeping well. Patient has been compliant with instructions. Current medication use: no side effects, compliant with dosing regimen and considered effective by patient. Patient sleeps 9 hours per night. Impact of disease: no overall impact and no emotional impact. Nutrition: balanced diet. The medical issues the patient is following up for include All identified problems below., [ADDITIONAL REASON] Varicose Veins - Note for Varicose veins: Left leg vein spider , [ADDITIONAL REASON] Dizziness - Note for Dizziness: Wake up dizzi and nausteous when awakening on and off. Encounter Diagnosis: Nonsmoker, BMI 32.0-32.9,adult , Varicose veins of legs, Skin texture changes, Vertigo, Vitamin D deficiency, Impaired fasting glucose (790.21), Hyperparathyroidism, Thyroid Nodule, Need for Tdap vaccination (Renamed from Need for [id number] (Tdap) vaccine, adult/adolescent) [facility] Office Visit On: 24-Jul-2018 7:25 Encounter Reason: Annual Medicare Exam - The patient had reviewed and updated the family history, medication/s, past medical history and social history. Yes the patient did have a mini mental status exam done today. The End: 24-Jul-2018 14:13 activities of daily living the patient needs help with are none. The patient has driven in past 6 months, put area rugs through house and put handrails in bathroom, but the patient has not had fecal inc ontinence, had urinary incontinence, missed or ran out of medications to soon, fallen in the past 6 months, gotten lost or has a medalert necklace or bracelet. The patient has completed the following pr eventative measures: PAP smear (5 years), mammography (nov 2017) and colonoscopy (2 years ago by andrew minaya. due back in 8 years). The patient does have living will, but the patient does not have durab le power of traffic law attorney. The patient has noticed nothing from the geriatic depression scale. Other providers contributing to the patient's care are other: (dr. snow- eye dr. last exam - 05/2018). Note for Annual Medicare Exam: Pt her for annual medicare test. No issues. Will see PCP in October.Encounter Diagnosis: Annual visit for general adult medical examination without abnormal findings, Nonsmoker, Colon cancer screening (Renamed from Encounter for screening for malignant neoplasm of colon), BMI 32.0-32.9,adult, Need for prophylactic vaccination and inoculation against influenza (Renamed from Need for immunization against influenza), Encounter for hepatitis C virus screening test for high risk patient [facility] Office Visit On: 29-Apr-2018 11:25 Encounter Reason: Follow up for chronic medical issues - The patient feels well with no complaints and is sleeping well. Patient has been compliant with instructions. Current medication use: experiencing side effects ( End: 29-Apr-2018 14:43 y mouth). Patient sleeps 9 hours per night. Impact of disease: no overall impact and no emotional impact. Nutrition: balanced diet. The medical issues the patient is following up for include All identif ied problems below. Note for Follow up for chronic medical issues: Had cataract surgery done this year., [ADDITIONAL REASON] Follow up tests - Diagnostic tests include other (labs- see scanned in). Encounter Diagnosis: Other abnormal glucose, Nonsmoker, BMI 31.0-31.9,adult, Hyperparathyroidism, primary, Hypercholesterolemia [facility] Annotation/Addendum On: 15-Nov-2017 15:26 Encounter Diagnosis: Thyroid Nodule End: 15-Nov-2017 15:29 [facility] Annotation/Addendum On: 15-Nov-2017 6:47 Encounter Diagnosis: Breast cancer screening End: 15-Nov-2017 6:49 [facility] Office Visit On: 23-Oct-2017 11:08 Encounter Reason: Follow up tests - Diagnostic tests include other (labs). Note for Discuss procedure results: Following up on tests and labs, [ADDITIONAL REASON] Follow up for chronic medical issues - The patient feels well with no complaints End: 23-Oct-2017 12:11 and is sleeping well. Patient has been compliant with instructions. Current medication use: experiencing side effects (dry mouth). Patient sleeps 9 hours per night. Impact of disease: no overall impact and no emotional impact. Nutrition: balanced diet. The medical issues the patient is following up for include All identified problems below. Encounter Diagnosis: Other abnormal glucose, BMI 31.0-31.9,adult, Hyperparathyroidism, primary, Anemia, Vitamin D deficiency, Rash [facility] Office Visit On: 24-Apr-2017 9:38 Encounter Reason: Follow up tests - Diagnostic tests include other (labs). Note for Discuss procedure results: Had labs at [facility] include VD , UA showing 0-5 RBC, hemoglobine 12.6 , CMP, PTH level 33 and calcium 9.2Encounter Diagnosis: End: 24-Apr-2017 10:43 BMI 31.0-31.9,adult, Nonsmoker, Hyperparathyroidism, primary, Anemia, Thyroid Nodule [facility] Office Visit On: 29-Mar-2017 13:00 Encounter Reason: Follow up for chronic medical issues - The patient feels well with no complaints and is sleeping well. Patient has been compliant with instructions. Current medication use: no side effects. Patient slee End: 29-Mar-2017 14:27 ps 9 hours per night. Impact of disease: no overall impact and no emotional impact. Nutrition: balanced diet. The medical issues the patient is following up for include All identified problems below., [ADDITIONAL REASON] Follow up tests - Diagnostic tests include mammography, other (mammogram, US, bone density) and ultrasound. Encounter Diagnosis: Other abnormal glucose, Hypercholesterolemia, BMI 31.0-31.9,adult, Nonsmoker, Post-menopausal, Bladder mass, Hematuria, Urinary frequency, Hyperparathyroidism, primary, Bladder tumor [facility] Phone Encounter On: 04-Feb-2017 14:31 Encounter Diagnosis: Vitamin D deficiency End: 04-Feb-2017 14:45 [facility] Annotation/Addendum On: 23-Jan-2017 13:07 Encounter Diagnosis: Post-menopausal End: 23-Jan-2017 13:11 [facility] Office Visit On: 24-Oct-2016 10:03 Encounter Reason: Follow up for chronic medical issues - The patient feels well with minor complaints and is sleeping well. Patient has been compliant with instructions. Current medication use: no side effects. Impact of End: 24-Oct-2016 15:24 disease: no overall impact and no emotional impact. Nutrition: balanced diet. The medical issues the patient is following up for include All identified problems below.Encounter Diagnosis: Nonsmoker, BMI 31.0-31.9,adult, Other abnormal glucose, Encounter for Medicare annual wellness exam, Bladder mass, Hypercholesterolemia, Thyroid Nodule, Vitamin D deficiency, Hyperparathyroidism, primary, Hematuria, Visit for screening mammogram [facility] Phone Encounter On: 01-May-2016 15:19 Encounter Diagnosis: Hematuria, Bladder mass End: 01-May-2016 15:29 [facility] Office Visit On: 24-Apr-2016 11:46 Encounter Reason: Follow up for chronic medical issues - The patient feels well with minor complaints and is sleeping well. Patient has been compliant with instructions. Current medication use: no side effects. Patient s End: 24-Apr-2016 23:12 leeps 9 hours per night. Impact of disease: no overall impact and no emotional impact. Nutrition: balanced diet. The medical issues the patient is following up for include All identified problems below., [ADDITIONAL REASON] Follow up tests - Date: (scanned in - April). Encounter Diagnosis: BMI 31.0-31.9,adult, Nonsmoker, Vitamin D deficiency, Other abnormal glucose, Goiter, Thyroid Nodule, Hypercholesterolemia, Hyperparathyroidism, primary, Unspecified urinary incontinence, Fatigue, Bladder mass [facility] Phone Encounter On: 19-Apr-2016 8:44 Encounter Diagnosis: Vitamin D deficiency End: 19-Apr-2016 8:50 [facility] Office Visit On: 21-Oct-2015 11:14 Encounter Reason: Annual Medicare Exam - The patient had reviewed and updated the family history, medication/s, past medical history and social history. Yes the patient did have a mini mental status exam done today. The End: 21-Oct-2015 12:08 activities of daily living the patient needs help with are none. The patient has driven in past 6 months, put area rugs through house (fall handout given ) and put handrails in bathroom, but the patient has not had fecal incontinence, had urinary incontinence, missed or ran out of medications to soon, fallen in the past 6 months, gotten lost or has a medalert necklace or bracelet. The patient has comp leted the following preventative measures: PAP smear (2013), mammography () and colonoscopy (). The patient does not have durable power of traffic law attorney or living will. The patient has noticed no thing from the geriatic depression scale. Other providers contributing to the patient's care are gastrologist (Dr. Andrew Minaya [facility] ) and urologist (Dr. Pabon ).Encounter Diagnosis: Encounter for Medicare annual wellness exam, Other abnormal glucose , Visit for screening mammogram, BMI 31.0-31.9,adult, Need for prophylactic vaccination and inoculation against influenza (Renamed from Need for immunization against influenza), Goiter, Hypercholesterolemia, Hematuria, Unspecified urinary incontinence, Thyroid Nodule, Hyperparathyroidism, primary, Nail disorder [facility] Historical Summary On: 21-Oct-2015 9:19 [facility] End: 21-Oct-2015 9:34 Office Visit On: 21-Apr-2015 12:09 Encounter Reason: Follow up for chronic medical issues - The patient feels well with minor complaints. Patient has been compliant with instructions. Current medication use: no side effects. Patient sleeps 9 hours per nig End: 21-Apr-2015 13:05 ht. Impact of disease: no overall impact and no emotional impact. Nutrition: balanced diet. The medical issues the patient is following up for include All identified problems below.Encounter Diagnosis: Hypercholesterolemia (272.0), Hyperparathyroidism, primary (252.01), Thyroid nodule (241.0), Other Abnormal Glucose, Pre-diabetes (790.29), Urinary incontinence (788.30), Goiter (240.9), Hive, Hematuria, Annual Medicare Physical (V70.0) [facility] Office Visit On: 03-Mar-2015 14:16 Encounter Diagnosis: Hive End: 04-Mar-2015 6:58 [facility] Office Visit On: 03-Mar-2015 13:08 Encounter Reason: Shingles - The onset of the shingles has been sudden and has been occurring for 1 week. The course has been constant. The shingles is characterized as red and flat. The rash was first seen on the upper End: 03-Mar-2015 14:10 extremity (both breasts and around waist). The symptoms have been associated with itching.Encounter Diagnosis: Hive [facility] Historical Summary On: 25-Nov-2014 6:52 [facility] End: 25-Nov-2014 6:53 Office Visit On: 04-Oct-2014 9:57 Encounter Reason: Annual Medicare Exam - The patient had reviewed and updated the family history, medication/s, past medical history and social history. Yes the patient did have a mini mental status exam done today. The End: 04-Oct-2014 10:52 activities of daily living the patient needs help with are none. The patient has driven in past 6 months, put area rugs through house and put handrails in bathroom, but the patient has not had fecal inc ontinence, had urinary incontinence, missed or ran out of medications to soon, fallen in the past 6 months, gotten lost or has a medalert necklace or bracelet. The patient has completed the following pr eventative measures: PAP smear (), mammography () and colonoscopy (atleast 10 years ago ). The patient does not have durable power of traffic law attorney or living will. The patient has noticed nothin g from the geriatic depression scale. Other providers contributing to the patient's care are gastrologist (Dr. Andrew Minaya ([facility]) ) and other: (Opthalm: Dr. Santillan ).Encounter Diagnosis: Other Abnormal Glucose, Pre-diabetes (790.29), Need for prophylactic vaccination and inoculation against influenza (Renamed from Need for immunization against influenza), Annual Medicare Physical (V70.0), Hypercholesterolemia (272.0), Hyperparathyroidism, primary (252.01), Urinary incontinence (788.30), Thyroid nodule (241.0), Goiter (240.9) [facility] Office Visit On: 23-Mar-2014 12:49 Encounter Reason: Follow up for chronic medical issues - The patient feels well with minor complaints. Patient has been compliant with instructions. Current medication use: no side effects. Patient sleeps 8 hours per nig End: 23-Mar-2014 13:25 ht. Impact of disease: no overall impact and no emotional impact. Nutrition: balanced diet. The medical issues the patient is following up for include All identified problems below.Encounter Diagnosis: Other Abnormal Glucose, Pre-diabetes (790.29), Hyperparathyroidism, primary (252.01), Hypercholesterolemia (272.0), Urinary incontinence (788.30), Thyroid nodule (241.0), Goiter (240.9), Eczema of eyelid, Rash, Well Woman Exam (V72.31) (Pap,Mammo,Routine Female), INFLAMED SEBORRHEIC KERATOSIS [facility] Office Visit On: 30-Nov-2013 13:29 Encounter Reason: Eye Redness - Symptoms include eye redness and eye dryness. Symptoms are located in the left eye and right eye. Onset was sudden day(s) ago. There is no known event that preceded symptom onset. The symp End: 30-Nov-2013 14:06 toms occur constantly. The patient describes this as severe and worsening. Associated symptoms include lid irritation and facial redness, while associated symptoms do not include photophobia or headache . The patient is not currently being treated for this problem.Encounter Diagnosis: Rash, Eczema of eyelid [facility] Office Visit On: 22-Sep-2013 11:42 Encounter Reason: Follow up for chronic medical issues - The patient feels well with minor complaints (sorethroat but now better.). Patient has been compliant with instructions. Current medication use: no side effects. P End: 22-Sep-2013 12:36 atient sleeps 8 hours per night. Impact of disease: no overall impact and no emotional impact. Nutrition: balanced diet. The medical issues the patient is following up for include All identified problems below., [ADDITIONAL REASON] Annual Medicare Exam - The patient had reviewed and updated the family history, medication/s, past medical history and social history. Yes the patient did have a mini mental status exam done today. The activities of daily living the patient needs help with are none. The patient does not have durable power of traffic law attorney or living will. Other providers contributing to the patient's care are other: (see [facility]. victor [facility]). Encounter Diagnosis: Hypercholesterolemia (272.0), Other Abnormal Glucose, Pre- diabetes (790.29), Urinary incontinence (788.30), Goiter (240.9), Hyperparathyroidism, primary (252.01), Well Woman Exam (V72.31) (Pap,Mammo,Routine Female), Annual Medicare Physical (V70.0), Thyroid nodule (241.0) [facility] Office Visit On: 17-Aug-2013 12:28 Encounter Reason: Sore Throat - Symptoms include sore throat, swollen glands and myalgias, while symptoms do not include nasal congestion, postnasal drainage, fever or chills. The symptoms are symmetrical. The pain radia End: 17-Aug-2013 12:56 sara to the right ear. The patient describes the pain as dull and aching. Onset was sudden 4 day(s) ago. The symptoms occur constantly. The patient describes this as moderate in severity and unchanged. A ssociated symptoms include hoarseness and ear pain, while associated symptoms do not include headache, facial pain, nausea, vomiting, cough or rash.Encounter Diagnosis: PHARYNGITIS, ACUTE (462.) [facility] Office Visit On: 16-Mar-2013 13:03 Encounter Reason: Follow up for chronic medical issues - The patient feels well with minor complaints, has good energy level and is sleeping well. Patient has been compliant with instructions. Current medication use: no End: 16-Mar-2013 13:39 side effects, compliant with dosing regimen and considered effective by patient. Patient sleeps 9 hours per night. Impact of disease: emotional impact-mild. Nutrition: balanced diet and supplemental vit amins. The medical issues the patient is following up for include cardiac issues, gastric reflux, high cholesterol and other (hyperparathyroidism, goiter, urinary incont. ).Encounter Diagnosis: Other Abnormal Glucose, Pre-diabetes (790.29), Hypercholesterolemia (272.0), Hyperparathyroidism, primary (252.01), Urinary incontinence (788.30), Well Woman Exam (V72.31) (Pap,Mammo,Routine Female), Goiter (240.9) [facility] Office Visit On: 16-Sep-2012 10:28 Encounter Reason: Follow up for chronic medical issues - The patient feels well with minor complaints, has good energy level and is sleeping well. Patient has been compliant with instructions. Current medication use: no End: 16-Sep-2012 11:13 side effects and compliant with dosing regimen. Patient sleeps 8 hours per night. Impact of disease: emotional impact-mild. Nutrition: balanced diet and supplemental vitamins. The medical issues the pat ient is following up for include blood sugar issues, cardiac issues, high cholesterol and other (urinary incont. )., [ADDITIONAL REASON] Follow up tests - Date: (labs are scanned in but not saved to the chart -- in outstanding messages/fax). Encounter Diagnosis: Hyperparathyroidism, primary (252.01), Other Abnormal Glucose, Pre-diabetes (790.29), Screening for human papillomavirus (HPV) (V73.81), Urinary incontinence (788.30), Well Woman Exam (V72.31) (Pap,Mammo,Routine Female), Hypercholesterolemia (272.0), Goiter (240.9), Nausea and vomiting (787.01), Hypokalemia (276.8), Headache (784.0), lesion on left calf, dehydration [facility] Office Visit On: 15-May-2012 8:55 Encounter Reason: Follow up for chronic medical issues - The patient feels well with minor complaints, has good energy level and is sleeping well. Patient has been compliant with instructions. Current medication use: no End: 15-May-2012 9:27 side effects and compliant with dosing regimen. Patient sleeps 8 hours per night. Impact of disease: emotional impact-mild. Nutrition: balanced diet and supplemental vitamins. The medical issues the pat ient is following up for include blood sugar issues, cardiac issues, high cholesterol and other (urinary incont. ).Encounter Diagnosis: Hypercholesterolemia (272.0), Other Abnormal Glucose, Pre-diabetes (790.29), Hyperparathyroidism, primary (252.01), Well Woman Exam (V72.31) (Pap,Mammo,Routine Female), Goiter (240.9) [facility] Office Visit On: 07-Feb-2012 8:32 Encounter Reason: Follow up for chronic medical issues - The patient feels well with no complaints. Patient has been compliant with instructions. Current medication use: no side effects. Patient sleeps 10 (9-10 and somet End: 07-Feb-2012 9:03 imes more) hours per night. Nutrition: balanced diet.Encounter Diagnosis: Hyperparathyroidism, primary (252.01), Hypercholesterolemia (272.0), Urinary incontinence (788.30), Well Woman Exam (V72.31) (Pap,Mammo,Routine Female) [facility] Office Visit On: 20-Feb-2011 9:46 Encounter Reason: Well Women Exam - The patient feels well with no complaints, has good energy level and is sleeping well. Pap smear: date of last pap: (). Contraceptive history: The patient is not using any method End: 20-Feb-2011 10:22 of contraception at this time. Patient exercises a weekly. The patient's libido is normal. The patient reports that she performs monthly self breast exam. Calcium intake includes 1500 mg with Vit D daily supplement.Encounter Diagnosis: Well Woman Exam (V72.31) (Pap,Mammo,Routine Female), Hyperparathyroidism, primary (252.01), Urinary incontinence (788.30), Screening for human papillomavirus (HPV) (V73.81) [facility] Phone Encounter On: 22-Dec-2010 13:39 Encounter Diagnosis: Urinary incontinence (788.30) End: 22-Dec-2010 13:40 [facility] Phone Encounter On: 23-Nov-2010 14:55 Encounter Diagnosis: Urinary incontinence (788.30) End: 23-Nov-2010 14:55 [facility] Office Visit On: 20-Nov-2010 14:04 Encounter Reason: Urinary problems - The onset of the urinary problems has been gradual and they have been occurring in a persistent pattern for 6 months. The course has been constant. The urinary problems are described End: 23-Nov-2010 8:12 as moderate. The urinary problem is characterized as incontinence of urine., [ADDITIONAL REASON] Nail problems - The onset of the nail problems has been gradual and they have be en occurring in a persistent pattern for 6 months. The course has been increasing. The nail problems are described as moderate. Encounter Diagnosis: Abnormal Urine (791.9), Hyperparathyroidism, primary (252.01), Well Woman Exam (V72.31) (Pap,Mammo,Routine Female), Urinary incontinence (788.30), Hypercholesterolemia (272.0) [facility] Office Visit On: 25-Apr-2010 10:06 Encounter Reason: Follow up for chronic medical issues - The patient feels well with no complaints. Patient has been compliant with instructions. Current medication use: no side effects. Patient sleeps 10 (10-12hours) ho End: 25-Apr-2010 10:40 urs per night. Nutrition: balanced diet. , [ADDITIONAL REASON] Follow up, Laboratory Test Results - Date: (04/18 in scanned documents, outside hosp.). Encounter Diagnosis: Hypercholesterolemia (272.0), Hypercalcemia(275.42), Well Woman Exam (V72.31) (Pap,Mammo,Routine Female), Impaired fasting glucose (790.21) [facility] Office Visit On: 27-Oct-2009 10:06 Encounter Reason: Follow up for chronic medical issues - The patient feels well with no complaints ,has good energy level and is sleeping well. Patient has been compliant with instructions. Current medication use: no matthew End: 27-Oct-2009 11:02 e effects ,compliant with dosing regimen and considered effective by patient. Patient sleeps 7 hours per night. Impact of disease: emotional impact-mild. Nutrition: balanced diet and supplemental vitami ns. The medical issues the patient is following up for include blood sugar issues ,cardiac issues ,high cholesterol and other (obesity). Encounter Diagnosis: Impaired fasting glucose (790.21), Hypercholesterolemia (272.0), Well Woman Exam (V72.31) (Pap,Mammo,Routine Female) [facility] Phone Encounter On: 01-Sep-2009 16:01 [facility] End: 01-Sep-2009 16:01 Office Visit On: 15-Mar-2009 13:01 Encounter Reason: Follow up, Laboratory Test Results - Date: (03-01-09 ). Current symptoms/reason for visit include/s Follow up visit with no current symptoms. Past medical history includes elevated cholesterol and elevated triglycerides. End: 15-Mar-2009 13:19 Encounter Diagnosis: Hypercholesterolemia (272.0), Headache (784.0), dehydration, Nausea and vomiting (787.01), Hypokalemia (276.8), Gastroenteritis (558.9), Well Woman Exam (V72.31) (Pap,Mammo,Routine Female), lesion on left calf, Impaired fasting glucose (790.21) [facility] Office Visit On: 24-Sep-2008 13:19 Encounter Reason: Follow up ER - Reason for hospitalization note: (went to ER for headaches.). Patient has been compliant with instructions. Current medication use: no side effects. The patient feels well with no complai End: 24-Sep-2008 15:42 nts (feels better) ,has decreased energy level and is sleeping well. Patient sleeps 9 hours per night. Nutrition: inappropriate diet and no supplemental vitamins & iron. Encounter Diagnosis: Headache (784.0) [facility] Office Visit On: 21-Sep-2008 11:48 Encounter Reason: Follow up acute care visit - The patient does not feel well ,has decreased energy level and worsening. Patient has been compliant with instructions. Patient sleeps 7 hours per night. Impact of disease: End: 21-Sep-2008 12:52 emotional impact-moderate. Nutrition: balanced diet. The medical issues the patient is following up for include other (headache and nausea and vomiting ). Encounter Diagnosis: Headache (784.0), Nausea and vomiting (787.01), dehydration, Hypokalemia (276.8) [facility] Office Visit On: 17-Sep-2008 10:32 Encounter Reason: Flu like symptoms - The onset of the flu like symptoms has been acute and they have been occurring in a persistent pattern for 3 days. The course has been constant. The flu like symptoms are described as moderate. End: 17-Sep-2008 12:24 Encounter Diagnosis: Gastroenteritis (558.9), Headache (784.0), dehydration [facility] Office Visit On: 14-Sep-2008 10:17 Encounter Reason: Follow up, Laboratory Test Results - Date: (09-06-08 ). Current symptoms/reason for visit include/s Follow up visit with no current symptoms. There is a family history of cardiovascular disease. Past me End: 14-Sep-2008 10:38 dical history includes elevated cholesterol and other (obesity ). Encounter Diagnosis: Hypercholesterolemia (272.0), Well Woman Exam (V72.31) (Pap,Mammo,Routine Female) [facility] Office Visit On: 15-Mar-2008 13:52 Encounter Reason: Well Women Exam - The patient feels well with minor complaints ,has good energy level and is sleeping well. Pap smear: date of last pap: (2006 ). Contraceptive history: The patient is not using any meth End: 15-Mar-2008 14:35 od of contraception at this time. Patient exercises 3 - 4 times per week. The patient's libido is normal. The patient reports that she performs monthly self breast exam. Calcium intake includes 1200 mg with Vit D daily supplement. Note for Well Women Exam: menopausal Encounter Diagnosis: Well Woman Exam (V72.31) (Pap,Mammo,Routine Female), Hypercholesterolemia (272.0), lesion on left calf [facility] Office Visit On: 13-Aug-2007 12:32 Encounter Reason: Follow up, Laboratory Test Results - Lab results: abnormal blood lipids. Date: (08-08-07). Current symptoms/reason for visit include/s Follow up visit with no current symptoms. Past medical history incl End: 13-Aug-2007 13:08 udes elevated cholesterol and elevated triglycerides. Encounter Diagnosis: Hypercholesterolemia (272.0), Well Woman Exam (V72.31) (Pap,Mammo,Routine Female) [facility] Office Visit On: 10-Feb-2007 10:20 Encounter Reason: Well Women Exam - The patient feels well with no complaints ,has good energy level and is sleeping well. Pap smear: date of last pap: (2004). Contraceptive history: The patient is not using any method o End: 10-Feb-2007 10:43 f contraception at this time. Patient exercises 3 - 4 times per week. The patient's libido is normal. The patient reports that she performs monthly self breast exam. Calcium intake includes 1 serving mi lk daily. Note for Well Women Exam: Menopausal 1998 Encounter Diagnosis: Well Woman Exam (V72.31) (Pap,Mammo,Routine Female), Hypercholesterolemia (272.0) [facility] Office Visit On: 16-Aug-2006 11:37 Encounter Reason: Follow up, Laboratory Test Results - Date: (jun 19). Current symptoms/reason for visit include/s Follow up visit with no current symptoms. 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
--- OUTSIDE RECORDS SUMMARY | 2019-01-05 04:36 | XMS RPT_ITS | Continuity of Care Document ---
:1950 Author Organization [facility] Address [address] [facility] [address] [place] [address] Phone Care Team Providers Name Role Phone [...] WITH ABNORMAL FINDING Z 00.01Will work with rock cutter < will check with rock cutter on that, worked on it luciana 2016Getting [...] exercise.Pt does not have durable power of launch check out and living will. Status: Active Fatigue (R53.83, 780.79) Status: Active Goiter (E04.9, 240.9) Comments: multinodular. saw Shewmom(moved)[facility] endocrine, 2 years ago. thyroid 10/29: Status: [...] (E21.0, 252.01) Comments: Dr. jonas victor, at [facility]. calcium levels good. reviewed with patient labs from [facility] hui 10-14PTH of 1-18 normal at 31 and calcium normal at 9.5, repeating in 6 monthsremoved parathyroid 2010, CC.Saw Jonsa Victor in 2010, not any more Status: [...] for Tdap vaccination (Renamed from Need for ymrmvobkad-eueyjfu-mxipmazre (Tdap) vaccine, adult/adolescent) (Z23, V06.1) Status: Active [...] does not want [facility], will send to [facility]. Status: Active Unspecified urinary incontinence (R32, 788.30) [...] : 17-Aug-2013 End : 22-Sep-2013 Inactive ZOSTAVAX, 96396ALP/0.65ML (Subcutaneous Solution Reconstituted) 1 For Solution once [...] 16-Mar-2013 End : 16-Mar-2013 Discontinued Vitamin D3 51408 UNIT Oral Tablet 1 (one) Tablet weekly [...] Operative Report Result: Comments: See Note; NOTES: [facility] Medical Records Department [address] [place] [address] Operative Report 11/28/17 0858 MR#: [id number] Acct: [id number] Name: PARIS LEIVA Rep #: [id number] : 1950 67 From: Nik Chicas MD PCP: Ellen Fonseca NP Status: REG CLI Y Location: [place] Problem List (1) Nontoxic multinodular goiter Status: Acute Report of Operation Date of Procedure: 11/28/17 Pre-Operative Diagnosis: E04.2 multinodular goiter Post- Operative Diagnosis: Same Surgery/Procedure Performed:: 60018 ultrasound-guided fine-needle aspiration of left thyroid nod [...] Date Nik Chicas MD CC: Ellen Fonseca CHILLER TECHNICIAN; Nik Chicas MD Signed 05-Dec-2017 Surgery Visit Report Result: Comments: See Note; NOTES: [facility] [address] [facility] [address] [place] [address] OFFICE VISIT Date of Service: 12/05/17 MR#: [id number] Acct: [id number] Name: PARIS BENAVIDES Rep #: [id number] : 1950 Provider: Nik Chicas MD Age/Sex: 67/F Location[place] [facility] Status: Signed Intake Intake Visit Reasons: F/U THYROID BX/WCH 11/28/2017 Chief Complaint: thyr oid FNA Wood Grinder Required: No Is patient in pain?: No Allergies Penicillins [PCN] Adverse Reaction (Verified 12/05/17 13:41) Hives Medications Aspirin [Aspirin, Baby] 81 mg PO DAILY@0800 07/18/15 [History Confirmed 12/05/17] Atorvastatin Calcium [Lipitor] 80 mg PO QHS 07/18/15 [History Confirmed 12/05/17] Calcitriol [Calcitriol] 0.25 mcg PO DAILY 07/18/15 [History Confirmed 12/05/17] Multivitam ins,Therapeutic [Multivitamin] 1 mg PO DAILY 07/18/15 [History Confirmed 12/05/17] [place]-3 Fatty Acids/Fish Oil [Fish Oil 1,000 mg Capsule] 1 ea PO QHS 07/18/15 [History Confirmed 12/05/17] [place]-3 Fatt y Acids/Fish Oil [Fish Oil 1,000 [...] Thyroid Biopsy Result: Comments: See Note; NOTES: [facility] Imaging Services [address] [place] [address] US Thyroid Biopsy MR#: [id number] Acct: [id number] Name: KRISTOPHERPARIS Rep #: [id number] D OB: 1950 F 67 From: Tariq Deluna MD PCP: Ellen Fonseca NP Status: REG CLI Study: US Thyroid Biopsy Date of Exam: 11/28/17 Exam# [id number] Ordering Dr: Nik Chicas MD CLINICAL HISTORY: [...] Tariq Deluna MD at 10:07 EST Tel [phone], Service support , CC: Ellen Fonseca CHILLER TECHNICIAN; Nik Chicas MD Theoretical Physics Teacher: Signed 21-Nov-2017 Surgery Visit Report Result: Comments: See Note; NOTES: [facility] [place] [address] [facility] [address] [place] [address] OFFICE VISIT Date of Service: 11/19/17 MR#: [id number] Acct: [id number] Name: PARIS BENAVIDES Rep #: [id number] : 1950 Provider: Nik Chicas MD Age/Sex: 67/F Location: [facility] Status: Signed Intake Vital Signs11/19/17 Height 5 ft 7 in 11/19/17 Weight: 200 lb Intake Visi t Reasons: THYROID NODULE Wood Grinder Required: No Is patient in pain?: No Allergies Penicillins [PCN] Adverse Reaction (Verified 11/19/17 14:01) Hives Medications Aspirin [Aspirin, Baby] 81 mg PO DAILY@0800 07/18/15 [History Confirmed 11/19/17] Atorvastatin Calcium [Lipitor] 80 mg PO QHS 07/18/15 [History Confirmed 11/19/17] Calcitriol [Calcitriol] 0.25 mcg PO DAILY 07/18/15 [History Confirmed 0 11/19/17] Multivitamins,Therapeutic [Multivitamin] 1 mg PO DAILY 07/18/15 [History Confirmed 11/19/17] [place]-3 Fatty Acids/Fish Oil [Fish Oil 1,000 mg Capsule] 1 ea PO QHS 07/18/15 [History Confirmed 03/31] [place]-3 Fatty Acids/Fish Oil [Fish Oil 1,000 mg [...] Patient had a thyroid ultrasound completed at [facility] on 11/14/2017. There was a comparison [...] 2013 up to the main campus at [facility] and it was negative. 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 At that time I sent her up to an endocrine surgeon up at the main council who decided not to do any surgery [...] person, oriented to place, oriented to time [facility] Head: normocephalic , atraumatic Ears: external ears [...] her the opportunity go back up to [facility] for another evaluation to see if they wanted to do a fine-needle aspiration. If the fine-needle aspiration comes back and shows atypical cells she will certainly have to go back up to [place] at that time. The difficult thing I [...] Nik Chicas MD> Date Eugenio Chicas MD [facility] Signature: Date (if applicable) CC: Ellen Fonseca NP 14-Nov-2017 Thyroid Result: Comments: See Note; NOTES: [facility] Imaging Services [address] [place] [address] Thyroid MR#: [id number] Acct: [id number] Name: PARIS LEIVA Rep #: [id number] : 1949 F 67 From: Brandon Cleveland MD PCP: Ellen Fonseca NP Status: REG CLI Study: Thyroid Date of Exam: 11/14/17 Exam# [id number] Ordering Dr: Ellen Fonseca STUDY: THYROID ULTRASOUND [...] , Service support , CC: Ellen Fonseca CHILLER TECHNICIAN; Dr Krishnamurthy Theoretical Physics Teacher: Signed 29-Jan-2017 Dexa Bone Density Study (HP) Result: Comments: See Note; NOTES: [facility] Imaging Services [address] [place] [address] Verdana 4d Dexa Bone Density Study (HP) MR#: [id number] Acct: [id number] Name: SHANTAL LEIVA Kely Rep #: [id number] : 1950 F 66 From: Tariq Deluna MD PCP: Ciesa, Ellen Status: REG CLI Study: Dexa Bone Density Study (HP) Date of Exam: 01/29/17 Exam# [id number] Ordering Dr: Solange Fonseca STUDY: DUAL ENERGY [...] Tariq Deluna MD at 20:08 EDT Tel [phone], Service support , CC: Ellen Fonseca Theoretical Physics Teacher: Signed 29-Nov-2016 Thyroid Result: Comments: See Note; NOTES: [facility] Imaging Services [address] [place] [address] Verdana 4d Thyroid MR#: [id number] Acct: [id number] Name: PARIS LEIVA Rep #: [id number] : 1950 F 66 From: Brandon Cleveland MD PCP: Ellen Fonseca Status: REG CLI Study: Thyroid Date of Exam: 11/29/16 Exam# [id number] Ordering Dr: Ellen Fonseca STUDY: THYROID ULTRASOUND [...] more hypervascular than the prior study. The [place] [employer] (AACE) in collabora tion with the Associazione [...] MD at 22:56 EST , Service support [phone], CC: Ellen Fonseca Theoretical Physics Teacher: Signed 14-Nov-2015 Thyroid Result: Comments: See Note; NOTES: [facility] Imaging Services [address] [place] [address] Verdana 4d Thyroid MR#: [id number] Acct: [id number] Name: PARIS LEIVA Rep #: [id number] : 1950 F 65 From: Tariq Deluna MD PCP: Alessandra Hudson MD Status: REG CLI Study: Thyroid Date of Exam: 11/14/15 Exam# [id number] Ordering Dr: Alessandra Hudson MD STUDY: THY [...] Tariq Deluna MD at 14:52 EST Tel [phone], Service peterson pport [phone], CC: Alessandra Hudson MD Theoretical Physics Teacher: Signed 14-Nov-2015 Thyroid Result: Comments: See Note; NOTES: [facility] Imaging Services [address] [place] [address] Verdana 4d Thyroid MR#: [id number] Acct: [id number] Name: PARIS LEIVA Rep #: [id number] : 1950 F 65 From: Tariq Deluna MD PCP: Alessandra uHdson MD Status: REG CLI Study: Thyroid Date of Exam: 11/14/15 Exam# [id number] Ordering Dr: Alessandra Hudson MD ADDENDUM b y Tariq Deulna MD on 11/16/15 at 1250 ADDENDUM This is an addendum report. Prior examin ation was a targeted ultrasound-guided biopsy of the left thyroid. The visualized nodules are unchanged. Electronically Signed: Tariq Deluna MD at 12:50 EST Tel [phone], Servi ce support [phone], 11/16/15 1250 Date cc: Alessandra Hudson MD [...] Tariq Deluna MD at 14:52 EST Tel [phone], Service support [phone], CC: Alessandra Hudson MD Theoretical Physics Teacher: Signed 25-Jul-2015 Operative Report Result: Comments: See Note; NOTES: [facility] Medical Records Department [address] [place] [address] Operative Report MR#: [id number] Acct: [id number] Name: PARIS LEIVA #: [id number] : 1950 65 From: Jamaal Anand MD PCP: Alessandra Hudson MD Status: [facility] DATE OF SERVICE: 07/22/2015 DATE OF SERVICE: [...] I went into the bladder with a 21-Ugandan rigid cystourethroscope. I did a pancystoscopy with [...] Jamaal Anand MD T: INOCENCIO J OB: [id number] 07/25/15 0924 <Electronically signed by Jamaal Anand MD> Date Jamaal Anand MD Cosigner Signature (If Indicated): Date CC: Alessandra Hudson MD; Jamaal Anand MD Date Dictated: 07/22/15 1037 Date Transcribed: 07/22/15 1037 Theoretical Physics Teacher: Signed 22-Jul-2015 Discharge Instruction Result: Comments: See Note; NOTES: [facility] Medical Records Department [address] [place] [address] Instructions for Home/Discharge Instructions 07/22/15 1034 MR#: [id number] ct: [id number] Name: PARIS LEIVA Rep #: [id number] : 1950 65 From: Jamaal Anand MD PCP: Alessandra Hudson MD Status: REG [facility] Discharge Diet: No Restrictions, Light diet - advance as to lerated Discharge Activity: Return to Normal Activity, May Not Drive - for 2 days. Return to work on:: 07/25/15 May shower in (days): 1 Additional Activity Instructions:: If you have any problems ca [phone] and ask for your doctor to be [...] Multivitamins,Therapeutic [Multivitamin] 1 mg PO DAILY 07/18/15 [place]-3 Fatty Acids/Fish Oil [Fish Oil 1,000 mg Capsule] 1 each PO QHS 1 [place]-3 Fatty Acids/Fish Oil [Fish Oil 1,000 mg Softgel] 2 each PO DAILY 07/18/15 Oxybutynin Chloride [Ditropan Xl] 15 mg PO DAILY 07/18/15 Please Follow Up With: Jamaal Anand When: in 2 weeks, please call to make an appointment. 07/22/15 1035 <Electronically signed by Jamaal Anand MD> Date Jamaal Anand MD CC: Alessandra Hudson MD 22-Jul-2015 Operative Report Result: Comments: See Note; NOTES: [facility] Medical Records Department [address] [place] [address] Operative Report 07/22/15 1032 MR#: [id number] Acct: [id number] Name: PARIS GUAJARDO Rep #: [id number] : 1950 65 From: Jamaal Anand MD PCP: Alessandra Hudson MD Status: [facility] Y Location: [place] [address] Report of Operation Date of Procedure: 07/22/15 [...] W/WO Contrast Result: Comments: See Note; NOTES: [facility] Imaging Services [address] [place] [address] CAT Scan Report MR#: [id number] Acct: [id number] Name: PARIS LEIVA Rep #: [id number] : 1950 F 64 From: Tariq Deluna MD PCP: Alessandra Hudson MD Status: REG CLI Study: Abdomen/Pelvis W/WO Contrast Date of Exam: 06/08/15 Exam# [id number] Ordering Dr: Jamaal Anand MD STUDY: CT [...] Tariq Deluna MD at 15:42 EDT Tel [phone], Se rvice support [phone], CC: Alessandra Hudson MD; Jamaal Anand MD Theoretical Physics Teacher: Signed 27-Jan-2015 Dexa Bone Density Study (HP) Result: Comments: See Note; NOTES: [facility] Imaging Services [address] [place] [address] Bone Density Report MR#: [id number] Acct: [id number] Name: PARIS LEIVA Rep #: [id number] : 1950 F 64 From: Tariq Deluna MD PCP: Alessandra Hudson MD Status: REG CLI Study: Dexa Bone Density Study (HP) Date of Exam: 01/27/15 Exam# [id number] Ordering Dr: Alessandra Hudson MD STUDY: DUAL [...] Ramos Deluna MD at 16:13 EDT Tel [phone], Service support [phone], CC: Alessandra Hudson MD Theoretical Physics Teacher: Signed Immunization Name Dates Details Influenza, split [...] smoker Vital Signs Date Test Result Details 86-Eoz-636125:25 Temperature 97.6 f Comments: Method: Temporal Pulse [...] kg/m2 Body Surface Area Calculated 2.06 m2 74-Fhe-969920:34 Temperature 97.7 f Comments: Method: Temporal Pulse [...] kg/m2 Body Surface Area Calculated 2.01 m2 27-Ljl-849034:04 Weight 199 lb Height 67 in Body [...] Description Value Details :29 HgA1C , Office (25260) Comments: 5.8 HgA1C , Office 5.8 % (Normal) Range: 4.6 - 7.1 :39 HEPATITIS C ANTIBODY (98835) Comments: PATIENT NOT FASTINGPERFORMED BY: [facility] Eeanvy1812 [facility] [id number] Hep C Virus Ab <0.1 {s/co_ratio} (Normal) Range: 0.0-0.9 Comments: Negative: < 0.8 Indeterminate: 0.8 - 0.9 Positive: > 0.9 . The CDC recommends that a positive HCV antibody result be followed up with a HCV Nucleic Acid Amplification test (629415). 28-Uad-529348:27 HgA1C , Office (73765) HgA1C , Office 5.7 % (Normal) Range: 4.6 - 7.1 01-Tey-787089:27 Blood Glucose , Office (31107) Blood Glucose , Office 96 (Normal) 14-Qbi-04346:00 Fluid/Washing See Note (Normal) Comments: [facility] [address] [place], [address] Comments: Patient: APRIS LEIVA : 1950 (67/F) Acct Num: [id number] Phys: Nik Chicas MD Unit Num: [id number] Loc: Specimen: [id number] Received: 11/28/17 - 1016 [...] cytology study. / AM:ke 11/28/17 TC:5 CPT: 56891 x3, 08553 x3 CYTOLOGY STUDY Slides are reviewed. DIAGNOSIS [...] Signed Lucho Jess 11/29/17 <signature on file> 75-Rgy-427334:10 HgA1C , Office (72976) HgA1C , Office 5.6 % (Normal) Range: 4.6 - 7.1 43-Esn-997727:09 Blood Glucose , Office (26142) Blood Glucose , Office 102 (Normal) 96-Sjm-721682:00 HgA1C , Office (70369) Comments: 5.7 HgA1C , Office 5.7 % (Normal) Range: 4.6 - 7.1 37-Yis-145599:23 Blood Glucose , Office (64996) Comments: 106 Blood Glucose , Office 105 (Normal) 04-Kas-71183:00 CYTOSPIN ON FLUID See Note (Normal) Comments: [facility] [address] [facility]. [place], [place], [address] Comments: Patient: PARIS LEIVA : 1950 (66/F) Acct Num: [id number] Phys: Cheng WISE,Erasmo Unit Num: [id number] Loc: [facility] Specimen: [id number] Received: 12/06/16 - 1426 Spec Ty pe: CYSPIN FL TISSUES TISSUES: CYTOLOGY GROSS Received is 80 ml of yellow, clear fluid labeled with the patient's name and DOBand designated per the requisition as urine. Submitte d for cytology preparation. 2/23/17 TC:5 CPT: 25307 CYTOLOGY STUDY Slides are reviewed. DIAGNOSIS CYTOLOGY Urine for cytology (cytospin): Negative for malignant cells. AM:rg HEADER OPERATION: Not noted PRE-OP DIAGNOSIS: D30.3 TISSUE SUBMITTED: Urine for cytology Signed Lucho Jess 12/07/16 <signat ure on file> 68-Mvj-991651:03 URINE OLIVER CULTURE-ALYSA COL Comments: PATIENT NOT FASTINGPERFORMED BY: [facility] Old BridgeSarscd6442 [facility] [id number] Information: SRC:UC COUNT (07394) Result 1 MUG (Normal) Comments: Mixed urogenital flora1,000 Colonies/mL Urine Culture,Comprehensive Final report (Normal) 72-Yor-746310:57 Urinalysis, Office (25850) UA - LEUKOCYTE ESTERASE Trace (Normal) UA - NITRITE Negative (Normal) URINE UROBILINGN ALYSA TIMED Normal mg/dL (Normal) UA - PROTEIN Negative mg/dL (Normal) UA - PH 5 (Abnormal) UA - BLOOD Hemolyzed Small (Normal) UA - SPECIFIC GRAVITY 1.020 (Normal) UA - KETONES Negative mg/dL (Normal) UA - BILIRUBIN Negative (Normal) UA - GLUCOSE Negative (Normal) 14-Uba-124155:06 HgA1C , Office (61166) HgA1C , Office 5.6 % (Normal) Range: 4.6 - 7.1 :06 Blood Glucose , Office (77796) Blood Glucose , Office 138 (Normal) 55-Ncz-367086:03 HgA1C , Office (57247) HgA1C , Office 5.7 % (Normal) Range: 4.6 - 7.1 :29 HgA1C , Office (06487) HgA1C , Office 5.9 % (Normal) Range: 4.6 - 7.1 :19 BLADDER TUR See Note (Normal) Comments: [facility] [address] [place], [place], [id number] Comments: Patient: PARIS LEIVA : 1950 (65/F) Acct Num: [id number] Phys: Cheng WISE,Erasmo Unit Num: [id number] Loc: [facility] Specimen: [id number] Received: 07/22/15 - 1310 Spec Type : [...] one cassette. / JONA:qi 07/22/15 TC:3 CPT: 51766 HEADER OPERATION: Cysto, bl adder tumor PRE-OP DIAGNOSIS: Bladder tumor TISSUE SUBMITTED: Bladder tumor MICROSCOPIC DESCRIPTION Slides are reviewed. MICROSCOPIC DIAGNOSIS Bladder tumor, biopsy: Fragments of u rothelial mucosa with mild chronic inflammation. Negative for malignancy in the submitted specimen. SJ:qi 07/25/15 Signed Abram Loya 07/25/15 <signature on file> 61-Eae-067961:10 Serum Creatinine AND GFR Comments: Test performed at:[address] [place] [address] EST GFR - AA 70 mL/min (Normal) EST GFR 58 mL/min (Abnormal) CREAT,SERUM 1.01 mg/dL (Normal) Range: 0.55-1.20 Comments: Please note revised CREATININE reference range xpqaauzds19/22/2015. 63-Ecm-962871:15 Cytology, Body Fluid / CSF Comments: Specimen Source: URINETest performed at:[facility] [address] [place], [place] [address] CYTOLOGY,BF/CSF SEE PATHOLOGY REPORT Comments: Specimen submitted to Anatomical Pathology Department fortesting. (Normal) 16-Udt-30578:00 CYTOSPIN ON FLUID See Note (Normal) Comments: Test performed at:[address] [place] [address] Comments: Patient: PARIS LEIVA : 1950 (64/F) Acct Num: [id number] Phys: Cheng WISE,Jamaal Farias Unit Num: [id number] Loc: [facility] Specimen: [id number] Received: 06/06/15 - 1515 Spec T ype: CYSPIN FL TISSUES TISSUES: COMMENT The specimen contains acute inflammatory cells. Clinical correlation is suggested. CULTURE RESULTS No results available. CYTOLOGY Pritesh PADILLA Received is 80 ml of dark yellow cloudy fluid designated urine. Submitted for cytology preparation. / 06/07/15 TC:2 CPT: 43869 CYTOLOGY STUDY Slides are reviewed. DIAGNOSIS CYTOLO GY Urine for cytology (cytospin): Negative for malignant cells. AM: 06/08/15 HEADER OPERATION: Not noted PRE-OP DIAGNOSIS: Hematuria TISSUE SUBMITTED: Urine cytology Sign ed Lucho [facility] 06/08/15 <signature on file> 7-Zvn-075043:00 Urinalysis, Office (27762) UA - LEUKOCYTE ESTERASE Negative (Normal) UA - NITRITE Negative (Normal) URINE UROBILINGN ALYSA TIMED 2 mg/dL (Normal) UA - PROTEIN Negative mg/dL (Normal) UA - PH 5.0 (Normal) UA - BLOOD Non Hemolyzed Moderate (Normal) UA - SPECIFIC GRAVITY 1.030 (Abnormal) UA - KETONES 15 mg/dL (Abnormal) UA - BILIRUBIN Negative (Normal) UA - GLUCOSE Negative (Normal) 8-Oxe-200205:10 Blood Glucose , Office (46333) Blood Glucose , Office 129 (Normal) 21-Nxn-903536:36 Pap IG Comments: Source.............Cervical;EndocervicalOther..............Post MenopausalNo. of containers..01 CYTYC Thin Prep VialPATIENT NOT FASTINGPERFORMED BY: =G [facility] [address] [place] [address] (Image [id number] BY: WB [facility] [address] [id number] Guided) Note: PAPSMR (Normal) Comments: The Pap [...] medical examination at health care facilityGeno Norton Senior Data Architect (ASCP) 05-Fcc-119457:36 Thin Comments: Source.............Cervical;EndocervicalOther..............Post MenopausalNo. of containers..01 CYTYC Thin Prep VialPATIENT NOT FASTINGPERFORMED BY: =G [facility] [address] Prep Pap [id number] BY: WB [facility] [address] [id number] Information: [id number] (75705) Age Gdln ACOG Testing AGE6 (Normal) Comments: <21 or >65 or no age provided 60-Feb-720802:01 HgA1C , Office (87823) HgA1C , Office 5.9 % (Normal) Range: 4.6 - 7.1 94-Maj-545746:01 Blood Glucose , Office (98264) Blood Glucose , Office 99 (Normal) 13-Cac-359764:51 HgA1C , Office (79432) HgA1C , Office 6.2 % (Normal) Range: 4.6 - 7.1 85-Hqh-089515:08 CALCIFEDIOL (00097) Comments: PATIENT NOT FASTINGPERFORMED BY: [facility] Cjgdum5275 [facility] [id number] Information: [id number], 466003 Vitamin D, 25-Hydroxy 23.7 ng/mL (Abnormal) Range: 30.0-100.0 Comments: Vitamin D deficiency has been defined by the [place] ofMedicine and an Endocrine Society practice guideline as alevel of serum 25-OH vitamin D less than 20 ng/mL (1,2).The Endocrine Society went on to further define vitamin Dinsufficiency as a level between 21 and 29 ng/mL (2).1. IOM ([place] of Medicine). 2010. Dietary reference intakes for calcium and D. [place]: The National Academies Press.2. Bianca MF, Hermann CARBAJAL, Luis Alberto SCHNEIDER, et al. Evaluation, treatment, and prevention of vitamin D deficiency: an Endocrine Society clinical practice guideline. JCEM. 2010; 96(7):1911-30. :50 HgA1C , Office (30886) HgA1C , Office 5.9 % (Normal) Range: 4.6 - 7.1 :50 Blood Glucose , Office (74314) Blood Glucose , Office 84 (Normal) :21 OLIVER CULTURE-OTHER (54310) Comments: PATIENT NOT FASTINGPERFORMED BY: [facility], Old BridgeDkuvat9719 [facility] [id number] Information: SRC:NEIDA [id number] Result 1 RRF (Normal) Comments: Routine respiratory max Upper Respiratory Culture Final report (Normal) :10 HgA1C , Office (32279) HgA1C , Office 5.8 % (Normal) Range: 4.6 - 7.1 :10 Blood Glucose , Office (21298) Blood Glucose , Office 117 (Normal) :32 HgA1C , Office (87167) HgA1C , Office 6.0 % (Normal) Range: 4.6 - 7.1 :32 Blood Glucose , Office (41554) Blood Glucose , Office 141 (Normal) Comments: just ate :59 HgA1C , Office (32114) HgA1C , Office 6.0 % (Normal) Range: 4.6 - 7.1 :59 Blood Glucose , Office (17274) Blood Glucose , Office 125 (Normal) :50 PARATHORMONE (88850) Comments: PATIENT WAS FASTINGPERFORMED BY: Thermodynamic Process ControlSurgeons Choice [facility] Center6370 [facility] [id number] PTH, Intact 39 pg/mL (Normal) Range: 15-65 :50 LIPID PANEL (43719) Comments: PATIENT WAS FASTINGPERFORMED BY: Thermodynamic Process ControlSurgeons Choice Medical Center6370 [facility] [id number] LDL/HDL Ratio 1.5 {ratio_units} (Normal) Range: 0.0-3.2 [...] METABOLIC PANEL, Comments: PATIENT WAS FASTINGPERFORMED BY: Thermodynamic Process ControlSurgeons Choice Medical Center6370 [facility] [id number] Information: [id number],H73620 COMPREHENSIVE (88554) ALT (SGPT) 20 [iU]/L (Normal) Range: 0-40 [...] Glucose, Serum 104 mg/dL (Abnormal) Range: 65-99 54-Eff-898409:08 [facility] [id number] Comments: CYTOLOGY INFORMATION:- CLINICAL INFORMATION: - DATE LMP/MENOPAUSE: MENOPAUSE- COLLECTION VIAL: Thin Prep Vial- BOAT DESIGNER SOURCE: - COLLECTION TECHNIQUE: HPV HC,HGH . [...] inv estigational orfor research. RAYMOND SYED 03/01/11 9157 PAPSMR Comment Comments: The Pap smear is [...] (endocervical componen (Normal) t) are present.Freida Forman, Senior Data Architect (ASCP)This liquid based ThinPrep(R) pap test was screened withthe use of an image guided system. :00 YINKA and PE, Random Urine Comments: PERFORMED BY: [facility] [id number] Gamma Globulin, U 20.4 % (Normal) Immunofixation Result, Urine UPEIP (Normal) Comments: No monoclonality detected.Protein electrophoresis scan will follow via computer, mail, orcourier delivery. M-Homar, % Not Observed % (Normal) Elpyc-5-Lrulntqv, U 21.5 % (Normal) Beta Globulin, U 23.0 % (Normal) Kxuhh-3-Awahlrpn, U 7.3 % (Normal) Albumin, U 27.8 % (Normal) Protein,Total,Urine 4.1 mg/dL (Normal) Range: 0.0-15.0 4-Zek-664875:00 Urinalysis, Routine Comments: [facility]FORMED BY: [facility] [id number] Bilirubin Negative (Normal) Microscopic Examination MICRON (Normal) Comments: Microscopic follows if indicated. Nitrite, Urine Negative (Normal) Urobilinogen,Semi-Qn 0.2 mg/dL (Normal) Range: 0.0-1.9 Glucose Negative (Normal) Ketones Negative (Normal) Occult Blood Negative (Normal) Protein Negative (Normal) WBC Esterase Negative (Normal) Appearance Clear (Normal) pH 7.0 (Normal) Range: 5.0-7.5 Urine-Color Yellow (Normal) Specific [place] 1.024 (Normal) Range: 1.005-1.030 38-Nkn-549982:35 Calcium, 24Hr Urine Comments: PERFORMED BY: [employer] [id number] [facility] [id number] Information: 04/26@8AM 04/27@8AM Calcium, Urine 24hr 210.0 {mg/24_hr} (Normal) Range: 100.0-300.0 Calcium, Urine 21.0 mg/dL (Normal) :25 Blood Glucose , Office (72360) Blood Glucose , 113 (Normal) Office : Calcium, Serum 10.2 mg/dL (Normal) Comments: PERFORMED BY: [facility] [id number] Range: 8.6-10.2 :00 Protein Electro, Random Urine Comments: PERFORMED BY: [employer] [facility] [id number] Gamma Globulin, U 18.9 % (Normal) M-Homar, % Not Observed % (Normal) Please note: SPRCS (Normal) Comments: Protein electrophoresis scan will follow via computer, mail, orcourier delivery. Yzsit-8-Cclpixis, U 6.1 % (Normal) Myghi-0-Efworueo, U 16.1 % (Normal) Beta Globulin, U 33.4 % (Normal) Albumin, U 25.5 % (Normal) Protein,Total,Urine 7.9 mg/dL (Normal) Range: 0.0-15.0 :00 Protein Electro.,S Comments: PERFORMED BY: [facility] [id number] A/G Ratio 1.5 (Normal) Range: 0.7-2.0 Globulin, Total 2.8 g/dL (Normal) Range: 2.0-4.5 M-Homar Not Observed g/dL (Normal) Please note: SPRCS (Normal) Comments: Protein electrophoresis scan will follow via computer, mail, orcourier delivery. Rlabr-4-Qouzcslq 0.1 g/dL (Normal) Range: 0.1-0.4 Eofnr-7-Jkapnviv 0.7 g/dL (Normal) Range: 0.4-1.2 Beta Globulin 1.0 g/dL (Normal) Range: 0.6-1.3 Gamma Globulin 0.9 g/dL (Normal) Range: 0.5-1.6 Albumin 4.1 g/dL (Normal) Range: 3.2-5.6 Protein, Total, Serum 6.9 g/dL (Normal) Range: 6.0-8.5 : PTH, Intact 87 pg/mL (Abnormal) Comments: PERFORMED BY: [facility] [employer]1977 [facility] [id number] Range: 15-65 9-Uux-360847:12 HgA1C , Office (87383) HgA1C , Office 5.8 % (Normal) Range: 4.6 - 7.1 Comments: aw :55 Thin prep Pap Comments: Source.............Cervical;EndocervicalLMP / Prev Treat...QNH=[id number]. of containers..01 CYTYC Thin Prep VialPATIENT NOT FASTINGClinical Information: ADD [id number] PERFORMED BY: [facility] ([id number]) [address] [id number] . . (Normal) DIAGNOSIS: SPRCS (Normal) Comments: NEGATIVE FOR INTRAEPITHELIAL LESION AND MALIGNANCY.CELLULAR CHANGES ASSOCIATED WITH INFLAMMATION ARE PRESENT.Satisfactory for evaluation. Endocervical and/or squamous metaplasticcells (endocervical com ponent) are present.V72.31 ; Routine gynecological examinationMarissa Del Cid Senior Data Architect (ASCP) Note: PAPSMR (Normal) Comments: The Pap [...] for Tdap vaccination (Renamed from Need for gvtciechtp-jixxnpo-fchxwsnmw (Tdap) vaccine, adult/adolescent) : Follow up in 3 months Indication: Need for Tdap vaccination (Renamed from Need for xbvpsffhwd-gnatuhj-azunacils (Tdap) vaccine, adult/adolescent) Vertigo : *Vertigo Education [...] Indication: Hypercholesterolemia Planned Observations Metabolic Panel, Comprehensive (48498)Indication: Vertigo On: 4-Qey-569551:15 Request PARATHORMONE (41110)Indication: Hyperparathyroidism On: 8-Kxi-326986:13 Request CALCIFEDIOL (99167)Indication: Vitamin D deficiency On: 8-Nmg-825010:05 Request CBC & PLATELETS (AUTO) (64056)Indication: Anemia On: 13-Apr-2019 Request LIPID PANEL (84865)Indication: Hypercholesterolemia On: 40-Gar-877181:36 Request Comments: Oct 2018 CALCIFEDIOL (03523)Indication: Hyperparathyroidism, primary On: 15-Xgk-398669:35 Request Comments: Oct 2018 PARATHORMONE (20055)Indication: Hyperparathyroidism, primary On: 41-Gpu-879688:35 Request Comments: Oct 2018 CBC & PLATELETS (AUTO) (36691)Indication: Other abnormal glucose On: :35 Request Comments: Oct 2018 Metabolic Panel, Comprehensive (97191)Indication: Other abnormal glucose On: :35 Request Comments: Oct 2018 PARATHORMONE (95473)Indication: Hyperparathyroidism, primary On: :19 Request Comments: Oct 2017 PARATHORMONE (86669)Indication: Hyperparathyroidism, primary On: :19 Request Comments: March 2017 URINALYSIS (03432)Indication: Hematuria On: :11 Request Comments: March 2017 URINALYSIS (12167)Indication: Hematuria On: :09 Request Comments: Oct 2017 CBC & PLATELETS (AUTO) (68510)Indication: Hypercholesterolemia On: :08 Request Comments: Oct 2017 CBC & PLATELETS (AUTO) (78151)Indication: Hypercholesterolemia On: :07 Request Comments: March 2017 CALCIFEDIOL (17069)Indication: Post-menopausal On: :07 Request Comments: oct 2017 CALCIFEDIOL (68904)Indication: Post-menopausal On: :07 Request Comments: March 2017 Lipid Panel (25021)Indication: Hypercholesterolemia On: :06 Request Comments: Oct 2017 Metabolic Panel, Comprehensive (49049)Indication: Other abnormal glucose On: :06 Request Comments: Oct 2017 Metabolic Panel, Comprehensive (34511)Indication: Other abnormal glucose On: :06 Request Comments: March 2017 Lipid Panel (48383)Indication: Hypercholesterolemia On: :05 Request Comments: March 2017 CALCIUM SERUM (45202)Indication: Vitamin D deficiency On: :44 Request CALCIFEDIOL (31260)Indication: Vitamin D deficiency On: :44 Request URINALYSIS, W/ MICRO (05899)Indication: Hematuria On: :25 Request Comments: KATHYA Anand [facility] PARATHORMONE (68284)Indication: Hyperparathyroidism, primary On: :25 Request LIPID PANEL (54821)Indication: Hypercholesterolemia On: :21 Request Comments: 10/29 CBC, PLATELETS & AUT DIFF (24347)Indication: Goiter On: 90-Fac-410927:20 Request Comments: 10/29 TSH (THYROID STIMULATING HORMONE) ([id number])Indication: Goiter On: 77-Xvc-071401:20 Request Comments: 10/29 VITAMIN B-12 (CYANOCOBALAMIN) (97228)Indication: Fatigue On: 44-Glc-459308:20 Request Comments: may 2016 RHEUMATOID FACTOR-QUANT (62555)Indication: Fatigue On: :19 Request Comments: may 2016 Folate (17371)Indication: Fatigue On: :19 Request Comments: may RATE ERYTHROCYTE (76142)Indication: Fatigue On: :18 Request Comments: oct 2015 METABOLIC PANEL, COMPREHENSIVE (51149)Indication: Fatigue On: :18 Request Comments: october CALCIFIDIOL (79417) VIT D 25Indication: Fatigue On: :17 Request CALCIFEDIOL (35249)Indication: Vitamin D deficiency On: 14-Mrt-730622:00 Request Comments: end may CALCIFEDIOL (62096)Indication: Vitamin D deficiency On: 19-Apr-20168:47 Request CALCIFEDIOL (65552)Indication: Hyperparathyroidism, primary On: 1-Hdg-339597:56 Request PARATHORMONE (59044)Indication: Hyperparathyroidism, primary On: 6-Xtn-524423:56 Request Lipid Panel (51285)Indication: Hypercholesterolemia On: 9-For-969047:56 Request Metabolic Panel, Comprehensive (70686)Indication: Hypercholesterolemia On: 9-Vtr-996421:56 Request HgA1C , Office (92774)Indication: Other abnormal glucose On: 8-Aut-870495:11 Request URINALYSIS, W/ MICRO (74028)Indication: Hypercholesterolemia On: 99-Qxp-050363:42 Request METABOLIC PANEL, COMPREHENSIVE (39692)Indication: Hypercholesterolemia On: 22-Dwn-153890:42 Request LIPID PANEL (39234)Indication: Hypercholesterolemia On: 32-Zdb-531588:42 Request CBC W/AUTO DIFF WBC ([id number])Indication: Hypercholesterolemia On: 49-Kry-622671:42 Request CBC WITH MANUAL DIFF (93421)Indication: Other abnormal glucose On: :17 Request METABOLIC PANEL, COMPREHENSIVE (46696)Indication: Hypercholesterolemia On: :17 Request LIPID PANEL (67359)Indication: Hypercholesterolemia On: :17 Request Blood Glucose , Office (95688)Indication: Other abnormal glucose On: 71-Zhe-457243:51 Request METABOLIC PANEL, COMPREHENSIVE (31525)Indication: Hypercholesterolemia On: :31 Request Comments: in six months (approximately) LIPID PANEL (49279)Indication: Hypercholesterolemia On: :31 Request Comments: in six months (approximately) Rapid Strep Test, Office (78925)Indication: Acute pharyngitis On: 4-Lkl-705410:32 Request LIPID PANEL (25822)Indication: Hypercholesterolemia On: :28 Request METABOLIC PANEL, COMPREHENSIVE (49146)Indication: Hypercholesterolemia On: :28 Request CBC WITH MANUAL DIFF (91721)Indication: Hypercholesterolemia On: 8-Bdp-150383:11 Request LIPID PANEL (90060)Indication: Hypercholesterolemia On: 5-Cay-723417:10 Request METABOLIC PANEL, COMPREHENSIVE (35024)Indication: Hyperparathyroidism, primary On: 0-Urs-341415:10 Request METABOLIC PANEL, COMPREHENSIVE (22529)Indication: Hyperparathyroidism, primary On: :20 Request LIPID PANEL (01065)Indication: Hypercholesterolemia On: :20 Request HPV automatic (97478)Indication: Screening for HPV (human papillomavirus) On: 62-Fcm-627849:20 Request Thin prep Pap (49543)Indication: Well woman exam On: 49-Tmq-337191:11 Request URINALYSIS (69279)Indication: Unspecified urinary incontinence On: 6-Lro-842105:47 Request IMMUNOFIXATION ELECTROPHORESIS (97207)Indication: Other abnormal finding of urine On: 2-Vtp-637318:35 Request Comments: of urine HEPATIC FUNCTION PANEL (89057)Indication: Hypercholesterolemia On: 58-Hyp-305616:39 Request Comments: in six months (approximately) LIPID PANEL (75581)Indication: Hypercholesterolemia On: 73-Myw-782615:39 Request Comments: in in six months (approximately) Urine Protein Electrophoresis (UPEP) (14953)Indication: Hypercalcemia On: :38 Request Serum Protein Electrophoresis (SPEP) (38514)Indication: Hypercalcemia On: :38 Request URINE CALCIUM ALYSA TIMED (06551)Indication: Hypercalcemia On: 79-Qpc-151655:38 Request Comments: 24 hour PARATHORMONE (98570)Indication: Hypercalcemia On: 93-Vgx-177203:31 Request Calcium Serum (19284)Indication: Hypercalcemia On: 50-Iqf-839882:30 Request HgA1C , Office (82457)Indication: Impaired fasting glucose On: 64-Oux-164916:25 Request METABOLIC PANEL, COMPREHENSIVE (19118)Indication: Hypercholesterolemia On: 2-Zhe-876093:13 Request LIPID PANEL (66539)Indication: Hypercholesterolemia On: 8-Qha-145439:13 Request Comments: in six months (approximately) CBC, Platelets & Auto Diff (11966)Indication: Hypercholesterolemia On: 7-Kpv-741569:32 Request Metabolic Panel, Comprehensive (56151)Indication: Hypercholesterolemia On: 9-Zrj-569828:32 Request Lipid Panel (62393)Indication: Hypercholesterolemia On: 4-Gtz-588034:32 Request HEPATIC FUNCTION PANEL (54798)Indication: Hypercholesterolemia On: 1-Ezu-664499:33 Request Lipid Panel (27153)Indication: Hypercholesterolemia On: 2-Arz-272201:33 Request Comments: in six months (approximately) HEPATIC FUNCTION PANEL (23907)Indication: Hypercholesterolemia On: 07-Qao-868291:05 Request Lipid Panel (68392)Indication: Hypercholesterolemia On: 72-Dri-075669:05 Request Comments: in six months (approximately) Lipid Panel (73786)Indication: Hypercholesterolemia On: 95-Yrd-930525:43 Request Metabolic Panel, Comprehensive (12416)Indication: Hypercholesterolemia On: 53-Jdi-060741:43 Request Thin prep Pap (77161)Indication: Well woman exam On: 35-Lui-030888:43 Request HEPATIC FUNCTION PANEL (39540)Indication: Hypercholesterolemia On: 7-Nrr-182698:27 Request LIPID PANEL (23618)Indication: Hypercholesterolemia On: 1-Ywv-021606:27 Request Comments: in three months Planned Encounters Medical; 3 Month FU - On: 26-Jan-2019 13:30 [facility] Raymundo DECKER, Patrica Raymundo DECKER, Ellen Ma Medical; 6 Month FU - On: 27-Apr-2019 13:30 [facility] Ellen Fonseca CNP, CNP, Mary E Planned Procedures US THYROID (20750)By: Almajaronfranco DECKER, On: 24-Nov-2018 Intent Ellen Rodríguez CNP Comments: FAX RESULTS TO DR MARY GARCIA, [facility], surgery TDAP VACCINE >7 IM (50608)By: Raymundo On: 27-Oct-2018 Intent Ellen DECKER CNP, Mary E Ultrasound - ThyroidBy: Raymundo DECKER, On: 27-Oct-2018 Intent Ellen Rodrígeuz CNP Comments: Schedule for Nov 2018 Flu Vaccine (Quadrivalent) 64716Uu: On: 24-Jul-2018 Intent Randi Dietz Comments: Lot #[id number]/30/2019Site-L dltd, IMDose prefilled syringegiven by: GEOFF JAMA reviewed and ABN signed MAMMOGRAM BREAST BILATERAL SCREENING On: 15-Nov-2017 Intent DIGITAL (09687)By: Raymundo DECKER Ellen Rodríguez CNP DEXA SCAN AXIAL SKELETON (54458)By: On: 23-Jan-2017 Intent Ellen Fonseca CNP, CNP, Mary E MAMMOGRAM BREAST SCREENING DIGITAL On: 24-Oct-2016 Intent (G0202)By: Michael Kelly MD THYROID ULTRASOUND (63362)By: Robin On: 24-Apr-2016 Intent Michael WISE Comments: 10/30 Ultrasound - ThyroidBy: Becca WISE, On: 21-Oct-2015 Intent Alessandra Varner Comments: copy to Dr. Krishnamurthy [facility] endocrine Flu Vaccine (Quadrivalent) 89964Po: On: 21-Oct-2015 Intent Alessandra Hudson MD Comments: Lot #:[id number] date:Amount given:0.5mlRoute: IMSite given:L DltdGiven by: Carmelina HUIZAR and ABN signed Quad Flu BILATERAL MAMMOGRAMS (67926)By: On: 21-Oct-2015 Intent Alessandra Hudson MD Solu -Medrol Injection, 125 mg On: 03-Mar-2015 Intent (J2930)By: Alessandra Hudson MD Comments: lot:[id number]:10/17route:IMdose:125MGSite:R glutgiven by: CAROLINE Solu -Medrol Injection, 125 mg On: 03-Mar-2015 Intent (J2930)By: Alessandra Hudson MD DEXA SCAN AXIAL SKELETON (48016)By: On: 04-Oct-2014 Intent Alessandra Hudson MD Comments: postmean[pausal had at [facility] ADMINISTRATION OF INFLUENZA VIRUS On: 04-Oct-2014 Intent VACCINE (G0008)By: Alessandra Hudson MD Flu Vaccine (Quadrivalent) 70934Sh: On: 04-Oct-2014 Intent Alessandra Hudson MD BILATERAL MAMMOGRAMS (16141)By: On: 23-Mar-2014 Intent Alessandra Hudson MD EKG (24873)By: Alessandra Hudson MD On: 22-Sep-2013 Intent Comments: see scanned document of test done to see results reviewed today with patient Eprescribed prescriptions (G8553)By: On: 22-Sep-2013 Intent Long BENCH INSPECTOR, Riddhi L Eprescribed prescriptions (G8553)By: On: 22-Sep-2013 Intent Long BENCH INSPECTOR, Riddhi L Eprescribed prescriptions (G8553)By: On: 17-Aug-2013 Intent Jamila Garcia Eprescribed prescriptions (G8553)By: On: 16-Mar-2013 Intent Alessandra Hudson MD MAMMOGRAM, SCREENING, BOTH BREASTS On: 16-Mar-2013 Intent (42801)By: Alessandra Hudson MD MAMMOGRAM, SCREENING, BOTH BREASTS On: 07-Feb-2012 Intent (82300)By: Alessandra Hudson MD MAMMOGRAM, SCREENING, BOTH BREASTS On: 20-Feb-2011 Intent (82816)By: Alessandra Hudson MD Comments: march 2011 DXA, BONE DENSITY, AXIAL SKELETON On: 20-Nov-2010 Intent (80407)By: Alessandra Hudson MD MAMMOGRAM, SCREENING, BOTH BREASTS On: 20-Nov-2010 Intent (38503)By: Alessandra Hudson MD MAMMOGRAM, SCREENING, BOTH BREASTS On: 25-Apr-2010 Intent (51458)By: Alessandra Hudson MD MAMMOGRAM, SCREENING, BOTH BREASTS On: 15-Mar-2009 Intent (42245)By: Alessandra Hudson MD IV Lactated Ringers 1000mlBy: On: 17-Sep-2008 Intent CONCEPCION Valencia Comments: Lot #:[id number] date:mount given:1000mlRoute: IVSite given:rt. anticubital Given by: erussell#22 initiated to rt. anticub without difficulty, infused without difficulty patient tolerated with no complaints IV Needle placement (14078)By: On: 17-Sep-2008 Intent CONCEPCION Valencia IV Infusion (16949)By: Erik, On: 17-Sep-2008 Intent CONCEPCION Toradol Injection, 30 mg (J1885)By: On: 17-Sep-2008 Intent Alessandra Hudson MD Comments: Lot #:[id number] date:6-1-8615Wygiud given:30mg Route: IVSite given:rt. anticub Given by: Dr. Hudson TD Injection , IM (16459)By: On: 14-Sep-2008 Intent Alessandra Hudson MD EKG (80794)By: Alessandra Hudson MD On: 14-Sep-2008 Intent MAMMOGRAM, SCREENING, BOTH BREASTS On: 15-Mar-2008 Intent (13937)By: Alessandra Hudson MD Pelvic and Breast, Medicare On: 15-Mar-2008 Intent (G0101)By: Alessandra Hudson MD Bone Density StudyBy: Becca WISE, On: 15-Mar-2008 Intent Alessandra Varner Comments: do 2 years from last, estrogen deficient MAMMOGRAM, SCREENING, BOTH BREASTS On: 16-Aug-2006 Intent (11287)By: Alessandra Hudson MD Planned Medications INJECTION, METHYLPREDNISOLONE SODIUM SUCCINATE, UP TO 125 MG Ordered: 03-Mar-2015 Pending Alessandra Hudson MD INJECTION, METHYLPREDNISOLONE SODIUM SUCCINATE, UP TO 125 MG Ordered: 03-Mar-2015 Pending Alessandra Hudson MD Instructions Name Dates Details Vitamin D deficiency : DISCONTINUED - CALCIFEDIOL (38182) Indication: Vitamin D deficiency Nonsmoker : How [...] Advance Directives Name Dates Details Immunization Registry [place] - Effective on Effective: 25-Jul-201807/25/2018. Expiration date [...] for Tdap vaccination (Renamed from Need for ixzrqbvypq-xrsjbvj-gfjuaghbm (Tdap) vaccine, adult/adolescent) [facility] [...] does not have durab le power of launch check out. The patient has noticed nothing from the [...] for Discuss procedure results: Had labs at [facility] include VD , UA showing 0-5 [...] patient does not have durable power of launch check out or living will. The patient has noticed no thing from the geriatic depression scale. Other providers contributing to the patient's care are gastrologist (Dr. Andrew Minaya [facility] ) and urologist (Dr. Pabon ).Encounter Diagnosis: [...] patient does not have durable power of launch check out or living will. The patient has noticed nothin g from the geriatic depression scale. Other providers contributing to the patient's care are gastrologist (Dr. Andrew Minaya ([facility]) ) and other: (Opthalm: Dr. Santillan ).Encounter [...] patient does not have durable power of launch check out or living will. Other providers contributing to the patient's care are other: (see Dr. victor [facility]). Encounter Diagnosis: Hypercholesterolemia (272.0), Other Abnormal Glucose, [...] [facility] End: 16-Aug-2006 7:34 Payers MedicareAultcareLinda Mellor; a guarantor
--- OUTSIDE RECORDS SUMMARY | 2019-01-05 04:37 | XMS RPT_ITS | Continuity of Care Document ---
:1950 Author Organization [facility] Address [address] [place] [address] Phone Care Team Providers Name Role Phone Ellen Fonseca CNP Unavailable Adrianne WISE, Nik Cowart Unavailable Cheng PHELPS MD, Gage Farias Unavailable Andrew Minaya MD Unavailable Emily Garcia Unavailable Unavailable Randi Dietz Unavailable Angel Michel Unavailable Unavailable Unavailable Unavailable Problems Name Dates Details Anemia (D64.9, 285.9) Comments: hemoglobin, 12,18 April 2017, was 13.2 in Oct 2016, 13.0 Nov 02 Status: Active Annual visit for general adult medical examination without abnormal findings (Z00.00, V70.0) Status: Active Bladder mass (N32.89, 596.89) Comments: Will do UA and fax results to Dr Kimbroughuria, 07/28 removed bladder massNon malignant , Dr [...] WITH ABNORMAL FINDING Z 00.01Will work with coal washer tender < will check with coal washer tender on that, worked on it luciana 2016Getting screening trexcord from [facility] pnalekseyovax , needs prevnar 13Pa tient here for [...] results)BMD( 01/27(will get resulty )Colonoscopy( 2014 , osmani, was told 10 yrs, will get results)ANDREW MILLErUp to date with tika mccartney.Does not need any medication refills.Make sure throw rugs are thin and rubber backed. 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 Status: Active Fatigue (R53.83, 780.79) Status: Active Goiter (E04.9, 240.9) Comments: multinodular. saw Wally(moved)Daron [facility] endocrine, 2 years ago.US thyroid 10/29: Status: Active Hematuria (R31.9, 599.70) Comments: sees Cheng, had cystosocpy, follow ua to return prn Status: Active Hypercholesterolemia (E78.00, 272.0) Comments: reveiwed with patient recent tests ldl goodTG 92(was 88 09/27)TC 169(was 149)HDL 53( was 44LDL 98( was 85)Diet and exercise Status: Active Hyperparathyroidism, primary (E21.0, 252.01) Comments: Dr. jonas victor, at [facility]. calcium levels good. reviewed with patient labs from [facility] hui 10-14PTH of 1-18 normal at 31 and calcium normal at 9.5, repeating in 6 monthsremoved parathyroid 2010, CC.Saw Jonas Victor in 2010, not any more Status: Active Nail disorder (L60.9, 703.9) Comments: [...] immunization against influenza) (Z23, V04.81) Status: Active Nonsmoker (Z78.9, V49.89) Status: Active Other abnormal glucose (R73.09, 790.29) Comments: HBA1c 5.9(10/29)Now 5.7(04/24/16)today 6-16- A1C is 5.7 Status: Active Post-menopausal (Z78.0, V49.81) Status: Active Pregnancies () Comments: 1 Status: Active Rash (R21, 782.1) Comments: of back, try lac hydrin 12% lotion to back Status: Active Thyroid Nodule (E04.1, 241.0) Comments: Repeated Thyroid US showing enlarging nodule, will send to surgeon for biopsy, pt does not want [facility], will send to [place]. Status: Active Unspecified urinary incontinence (R32, 788.30) Comments: doing well on med Status: Active Visit for screening mammogram (Z12.31, V76.12) Status: Active Vitamin D deficiency (E55.9, 268.9) Comments: Oct Status: Active Medications Name Dates Details Atorvastatin Calcium 80 MG Oral Tablet 1 Tablet daily for 0 days Quantity: 30 {Tablet} Refills: 3 Ordered:24-Jul-2018 Ellen Fonseca CNP, CNP, Mary E Start : 24-Jul-2018 Active Calcitriol 0.25 MCG Oral Capsule 1 (one) Capsule daily for 0 days Quantity: 30 {Capsule} Refills: 3 Ordered:24-Jul-2018 Raymundo DECKER, Ellen Forrester CNP, Ellen Ma Start : 24-Jul-2018 Active FISH OIL BURP-LESS, 1000MG (Oral Capsule) 3 qd (1000 MG) Active Oxybutynin Chloride ER 15 MG Oral Tablet Extended Release 24 Hour 1 Tablet ER 24HR daily for 0 days Quantity: 30 {Tablet} Refills: 3 Ordered:24-Jul-2018 Raymundo DECKER, Ellen Forrester CNP, Ellen Ma Start : 24-Jul-2018 Active Vitamin D3 Super Strength 2000 UNIT Oral Tablet 1 (one) Tablet 1 daily and 2 qMWF for 0 days Quantity: 30 {Tablet} Refills: 11 Ordered:23-Oct-2017 Raymundo DECKER, Ellen Street CNP Start : 23-Oct-2017 Active WOMENS ONE DAILY (Oral Tablet) 1 [...] days Quantity: 6 {Tablet} Refills: 0 Ordered:22-Sep-2013 Long RICE MILLING SUPERVISOR, Riddhi L Start : 17-Aug-2013 End : 22-Sep-2013 Inactive ZOSTAVAX, 00080IDX/0.65ML (Subcutaneous Solution Reconstituted) 1 For Solution once [...] 16-Mar-2013 End : 16-Mar-2013 Discontinued Vitamin D3 07135 UNIT Oral Tablet 1 (one) Tablet weekly for 0 days Quantity: 6 {Tablet} Refills: 1 Ordered:29-Mar-2017 Consuelo COELLO Yuliet Start : 24-Apr-2016 End : 29-Mar-2017 Discontinued [...] needs replaced Status: Inactive as of 16-Mar-2013 Impaired fasting glucose (R73.01, 790.21) Status: Inactive as of 16-Mar-2013 INFLAMED SEBORRHEIC [...] Well woman exam (Z01.419, V72.31) Comments: colonscopy 2003 BD 2010, pap 5-11 HPV neg. mammo summer Status: Inactive as of 04-Oct-2014 Procedures Procedure Dates Details Colonoscopy Completed Comments[facility] Completed Comments: 07-25-15 Bladder tumor-benign Dr. Pabon parathyriodectomy 2010 Completed Date Value Details 06-Dec-2017 Operative Report Result: Comments: See Note; NOTES: [facility] Medical Records Department [address] [place] [address] Operative Report 11/28/17 0858 MR#: [id number] Acct: [id number] Name: PARIS LEIVA Rep #: [id number] : 1950 67 From: Nik Chicas MD PCP: Ellen Fonseca NP Status: REG CLI Y Location: [place] Problem List (1) Nontoxic multinodular goiter Status: Acute Report of Operation Date of Procedure: 11/28/17 Pre-Operative Diagnosis: E04.2 multinodular goiter Post- Operative Diagnosis: Same Surgery/Procedure Performed:: 02642 ultrasound-guided fine-needle aspiration of left thyroid nod [...] Date Nik Chicas MD CC: Ellen Fonseca TAR POT MAN; Nik Chicas MD Signed 05-Dec-2017 Surgery Visit Report Result: Comments: See Note; NOTES: [facility] [address] [place] [address] [place] [address] OFFICE VISIT Date of Service: 12/05/17 MR#: [id number] Acct: [id number] Name: PARIS BENAVIDES Rep #: [id number] : 1950 Provider: Nik Chicas MD Age/Sex: 67/F Location: [facility] Status: Signed Intake Intake Visit Reasons: F/U THYROID BX/WCH 11/28/2017 Chief Complaint: thyr oid FNA Surgical Supply Assistant Required: No Is patient in pain?: No Allergies Penicillins [PCN] Adverse Reaction (Verified 12/05/17 13:41) Hives Medications Aspirin [Aspirin, Baby] 81 mg PO DAILY@0800 07/18/15 [History Confirmed 12/05/17] Atorvastatin Calcium [Lipitor] 80 mg PO QHS 07/18/15 [History Confirmed 12/05/17] Calcitriol [Calcitriol] 0.25 mcg PO DAILY 07/18/15 [History Confirmed 12/05/17] Multivitam ins,Therapeutic [Multivitamin] 1 mg PO DAILY 07/18/15 [History Confirmed 12/05/17] Fountain-3 Fatty Acids/Fish Oil [Fish Oil 1,000 mg Capsule] 1 ea PO QHS 07/18/15 [History Confirmed 12/05/17] Fountain-3 Fatt y Acids/Fish Oil [Fish Oil 1,000 [...] Signature: Date (if applicable) CC: Ellen Fonseca ALEXANDRA 28-Nov-2017 US Thyroid Biopsy Result: Comments: See Note; NOTES: [facility] Imaging Services [address] [place] [address] US Thyroid Biopsy MR#: [id number] Acct: [id number] Name: PARIS LEIVA Rep #: [id number] D OB: 1950 F 67 From: Tariq Deluna MD PCP: Ellen Fonseca NP Status: REG CLI Study: US Thyroid Biopsy Date of Exam: 11/28/17 Exam# [id number] Ordering Dr: Nik Chicas MD CLINICAL HISTORY: [...] Tariq Deluna MD at 10:07 EST Tel [phone], Service support , CC: Ellen Fonseca NP; Nik Chicas MD Instructor Knitting: Signed 21-Nov-2017 Surgery Visit Report Result: Comments: See Note; NOTES: [facility] [address] [place] [address] [address] [place] [address] OFFICE VISIT Date of Service: 11/19/17 MR#: [id number] Acct: [id number] Name: PARIS BENAVIDES Rep #: [id number] : 1950 Provider: Nik Chicas MD Age/Sex: 67/F Location: [facility] Status: Signed Intake Vital Signs11/19/17 Height 5 ft 7 in 11/19/17 Weight: 200 lb Intake Visi t Reasons: THYROID NODULE Surgical Supply Assistant Required: No Is patient in pain?: No Allergies Penicillins [PCN] Adverse Reaction (Verified 11/19/17 14:01) Hives Medications Aspirin [Aspirin, Baby] 81 mg PO DAILY@0800 07/18/15 [History Confirmed 11/19/17] Atorvastatin Calcium [Lipitor] 80 mg PO QHS 07/18/15 [History Confirmed 11/19/17] Calcitriol [Calcitriol] 0.25 mcg PO DAILY 07/18/15 [History Confirmed 0 11/19/17] Multivitamins,Therapeutic [Multivitamin] 1 mg PO DAILY 07/18/15 [History Confirmed 11/19/17] Fountain-3 Fatty Acids/Fish Oil [Fish Oil 1,000 mg Capsule] 1 ea PO QHS 07/18/15 [History Confirmed 03/31] Fountain-3 Fatty Acids/Fish Oil [Fish Oil 1,000 mg [...] Patient had a thyroid ultrasound completed at [facility] on 11/14/2017. There was a comparison made [...] was in 2013 up to the main [place] at [facility] and it was negative. 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 At that time I sent her up to an endocrine surgeon up at the main campus who decided not to do any surgery but repeat fine-needle aspiration. She now pres ents with clearly an enlargement on both the right and left sides from 2014. The fine-needle aspiration was done on the [...] person, oriented to place, oriented to time [facility] Head: normocephalic , atraumatic Ears: external [...] her the opportunity go back up to [place] for another evaluation to see if they wanted to do a fine-needle aspiration. If the fine-needle aspiration comes back and shows atypical cells she will certainly have to go back up to [place] at that time. The difficult thing I [...] procedure. Coding Level of Care Code Of ed bonilla,new,level 3 Diagnoses Multinodular goiter (nontoxic) E04.2 11/21/17 0857 <Electronically signed by Nik Chicas MD> Date Eugenio Chicas MD Cosigner Signature: Date (if applicable) CC: Ellen Fonseca NP 14-Nov-2017 Thyroid Result: Comments: See Note; NOTES: [facility] Imaging Services [address] [place] [address] Thyroid MR#: [id number] Acct: [id number] Name: PARIS LEIVA Rep #: [id number] : 1949 F 67 From: Brandon Cleveland MD PCP: Ellen Fonseca NP Status: REG CLI Study: Thyroid Date of Exam: 11/14/17 Exam# [id number] Ordering Dr: Ellen Fonseca STUDY: THYROID ULTRASOUND [...] , Service support , CC: Ellen Fonseca TAR POT MAN; Dr Krishnamurthy Instructor Knitting: Signed 29-Jan-2017 Dexa Bone Density Study () Result: Comments: See Note; NOTES: [facility] Imaging Services [address] [place] [address] Verdana 4d Dexa Bone Density Study () MR#: [id number] Acct: [id number] Name: SHANTAL LEIVA R Rep #: [id number] : 1950 F 66 From: Tariq Deluna MD PCP: Ellen Fonseca Status: [facility] CL Study: Dexa Bone Density Study () Date of Exam: 01/29/17 Exam# [id number] Ordering Dr: Solange Fonseca STUDY: DUAL ENERGY [...] Tariq Deluna MD at 20:08 EDT Tel [phone], Service support , CC: Ellen Fonseca Instructor Knitting: Signed 29-Nov-2016 Thyroid Result: Comments: See Note; NOTES: [facility] Imaging Services [address] [place] [address] Verdana 4d Thyroid MR#: [id number] Acct: [id number] Name: PARIS LEIVA Rep #: [id number] : 1950 F 66 From: Brandon Cleveland MD PCP: Ellen Fonseca Status: REG CLI Study: Thyroid Date of Exam: 11/29/16 Exam# [id number] Ordering Dr: Ellen Fonseca STUDY: THYROID ULTRASOUND REASON FOR EXAM: Female, 66 years old. Nodules TECHNIQUE: Ultrasound evaluation of the thyroid was performed with real-time and static barboza-scale imaging. COMPARISON: 2.1.16 FINDI NGS: RIGHT LOBE: The right lobe [...] more hypervascular than the prior study. The [place] [employer]auge [employer]er (AACE) in collabora tion with the Associazione [...] of Thyroid Nodules. Jd Gabriel MD, FACE, [facility]. Endocr Prac t. 2012; 18(4): 596-599. Electronically Signed: Brandon Cleveland MD at 22:56 EST , Service support [phone], CC: Ellen Fonseca Instructor Knitting: Signed 14-Nov-2015 Thyroid Result: Comments: See Note; NOTES: [facility] Imaging Services [address] [place] [address] Verdana 4d Thyroid MR#: [id number] Acct: [id number] Name: PARIS LEIVA Rep #: [id number] : 1950 F 65 From: Tariq Deluna MD PCP: Alessandra Hudson MD Status: REG CLI Study: Thyroid Date of Exam: 11/14/15 Exam# [id number] Ordering Dr: Alessandra Hudson MD STUDY: THY [...] Tariq Deluna MD at 14:52 EST Tel [phone], Service [place] [phone], CC: Alessandra Hudson MD Instructor Knitting: Signed 14-Nov-2015 Thyroid Result: Comments: See Note; NOTES: [facility] Imaging Services [address] [place] [address] Verdana 4d Thyroid MR#: [id number] Acct: [id number] Name: PARIS LEIVA Rep #: [id number] : 1950 F 65 From: Tariq Deluna MD PCP: Alessandra Hudson MD Status: REG CLI Study: Thyroid Date of Exam: 11/14/15 Exam# [id number] Ordering Dr: Alessandra Hudson MD ADDENDUM b y Tariq Deluna MD on 11/16/15 at 1250 ADDENDUM This is an addendum report. Prior examin ation was a targeted ultrasound-guided biopsy of the left thyroid. The visualized nodules are unchanged. Electronically Signed: Tariq Deluna MD at 12:50 EST Tel [phone], Servi ce support [phone], 11/16/15 1250 Date cc: Alessandra Hudson MD [...] LEFT LOBE: The left lobe of t shasha thyroid gland measures 3.8 cm x 1.6 [...] Tariq Deluna MD at 14:52 EST Tel [phone], Service support [phone], CC: Alessandra Hudson MD Instructor Knitting: Signed 25-Jul-2015 Operative Report Result: Comments: See Note; NOTES: [facility] Medical Records Department [address] [place] [address] Operative Report MR#: [id number] Acct: [id number] Name: PARIS LEIVA Angelina p #: [id number] : 1950 65 From: Jamaal Anand MD PCP: Alessandra Hudson MD Status: [facility] DATE OF SERVICE: 07/22/2015 DATE OF SERVICE: July 22, 2015 PREOPERATIVE DIAGNOSIS: Bladder t umor. POSTOPERATIVE DIAGNOSIS: Bladder tumor. PROCEDURE: Cystoscopy, transurethral resection of small bladder tumor and bilateral retrograde pyelogram. SURGEON: Feliberto Gautam THESIA: General. COMPLICATIONS: None. INDICATIONS: This is [...] I went into the bladder with a 21-[place] Islander rigid cystourethroscope. I did a pancystoscopy with [...] electrocautery. Once this was done, the pa toya's bladder was drained. There was no bleeding. She was taken back to PACU in good condition. She will follow up with me in the office in about 2 weeks. Jamaal Anand MD T: INOCENCIO J OB: [id number] 07/25/15 0924 <Electronically signed by Jamaal Anand MD> Date Jamaal Anand MD Cosigner Signature (If Indicated): Date CC: Alessandra Hudson MD; Jamaal Anand MD Date Dictated: 07/22/15 1037 Date Transcribed: 07/22/15 1037 Instructor Knitting: Signed 22-Jul-2015 Discharge Instruction Result: Comments: See Note; NOTES: [facility] Medical Records Department [address] [place] [address] Instructions for Home/Discharge Instructions 07/22/15 1034 MR#: [id number] ct: [id number] Name: PARIS LEIVA Rep #: [id number] : 1950 65 From: Jamaal Anand MD PCP: Alessandra Hudson MD Status: REG [facility] Discharge Diet: No Restrictions, Light diet - advance as to lerated Discharge Activity: Return to Normal Activity, May Not Drive - for 2 days. Return to work on:: 07/25/15 May shower in (days): 1 Additional Activity Instructions:: If you have any problems ca ll [phone] and ask for your doctor to be [...] Multivitamins,Therapeutic [Multivitamin] 1 mg PO DAILY 07/18/15 Fountain-3 Fatty Acids/Fish Oil [Fish Oil 1,000 mg Capsule] 1 each PO QHS 1 Fountain-3 Fatty Acids/Fish Oil [Fish Oil 1,000 mg Softgel] 2 each PO DAILY 07/18/15 Oxybutynin Chloride [Ditropan Xl] 15 mg PO DAILY 07/18/15 Please Follow Up With: Jamaal Anand When: in 2 weeks, please call to make an appointment. 07/22/15 1035 <Electronically signed by Jamaal Anand MD> Date Jamaal Anand MD CC: Alessandra Hudson MD 22-Jul-2015 Operative Report Result: Comments: See Note; NOTES: [facility] Medical Records Department [address] [place] [address] Operative Report 07/22/15 1032 MR#: [id number] Acct: [id number] Name: PARIS GUAJARDO R Rep #: [id number] : 1950 65 From: Jamaal Anand MD PCP: Alessandra Hudson MD Status: REG SDC Y Location: [place] [address] Report of Operation Date of Procedure: 07/22/15 [...] W/WO Contrast Result: Comments: See Note; NOTES: [facility] Imaging Services [address] [place] [address] CAT Scan Report MR#: [id number] Acct: [id number] Name: PARIS LEIVA Rep #: [id number] : 1950 F 64 From: Tariq Deluna MD PCP: Alessandra Hudson MD Status: REG CLI Study: Abdomen/Pelvis W/WO Contrast Date of Exam: 06/08/15 Exam# [id number] Ordering Dr: Jamaal Anand MD STUDY: CT [...] Tariq Deluna MD at 15:42 EDT Tel [phone], Se rvice support [phone], CC: Alessandra Hudson MD; Jamaal Anand MD Instructor Knitting: Signed 27-Jan-2015 Dexa Bone Density Study (HP) Result: Comments: See Note; NOTES: [facility] Imaging Services [address] [place] [address] Bone Density Report MR#: [id number] Acct: [id number] Name: PARIS LEIVA Rep #: [id number] : 1950 F 64 From: Tariq Deluna MD PCP: Alessandra Hudson MD Status: REG CLI Study: Dexa Bone Density Study (HP) Date of Exam: 01/27/15 Exam# [id number] Ordering Dr: Alessandra Hudson MD STUDY: DUAL [...] Ramos Deluna MD at 16:13 EDT Tel [phone], Service support [phone], CC: Alessandra Hudson MD Instructor Knitting: Signed Immunization Name Dates Details Influenza, split [...] smoker Vital Signs Date Test Result Details 95-Gox-032474:34 Temperature 97.7 f Comments: Method: Temporal Pulse [...] kg/m2 Body Surface Area Calculated 2.05 m2 94-Iax-578670:26 Temperature 97.6 f Pulse 60 /min Comments: [...] kg/m2 Body Surface Area Calculated 2.04 m2 31-Xvc-394504:18 Temperature 97.9 f Pulse 64 /min Comments: [...] kg/m2 Body Surface Area Calculated 2.01 m2 :04 Weight 199 lb Height 67 in Body Mass Index Calculated 31.17 kg/m2 Body Surface Area Calculated 2.02 m2 12-Vur-337092:46 Weight 199 lb Height 67 in Body [...] 0.00 cm Results Date Description Value Details :27 HgA1C , Office (14859) HgA1C , Office 5.7 % (Normal) Range: 4.6 - 7.1 :27 Blood Glucose , Office (54336) Blood Glucose , Office 96 (Normal) :00 Fluid/Washing See Note (Normal) Comments: [facility] [id number] [place], [address] Comments: Patient: PARIS LEIVA : 1950 (67/) Acct Num: [id number] Phys: Aviva WISE,Nik Unit Num: [id number] Loc: Specimen: [id number] Received: 11/28/17 - 1016 [...] cytology study. / AM:ke 11/28/17 TC:5 CPT: 73498 x3, 49134 x3 CYTOLOGY STUDY Slides are reviewed. DIAGNOSIS [...] Signed Lucho Jess 11/29/17 <signature on file> 39-Pla-297823:10 HgA1C , Office (30745) HgA1C , Office 5.6 % (Normal) Range: 4.6 - 7.1 69-Uif-867999:09 Blood Glucose , Office (21106) Blood Glucose , Office 102 (Normal) 32-Kpx-716896:00 HgA1C , Office (34654) Comments: 5.7 HgA1C , Office 5.7 % (Normal) Range: 4.6 - 7.1 51-Shs-498759:23 Blood Glucose , Office (23282) Comments: 106 Blood Glucose , Office 105 (Normal) 40-Oyt-14280:00 CYTOSPIN ON FLUID See Note (Normal) Comments: [facility] [id number] [facility]. [place], [place], [address] Comments: Patient: PARIS LEIVA : 1950 (66/F) Acct Num: [id number] Phys: Cheng WISE,Jamaal Farias Unit Num: [id number] Loc: LABSPEC Specimen: [id number] Received: 12/06/16 - 1427 Spec Ty pe: CYSPIN FL TISSUES TISSUES: CYTOLOGY GROSS Received is 80 ml of yellow, clear fluid labeled with the patient's name and DOBand designated per the requisition as urine. Submitte d for cytology preparation. 12/06/16 TC:5 CPT: 00899 CYTOLOGY STUDY Slides are reviewed. DIAGNOSIS CYTOLOGY Urine for cytology (cytospin): Negative for malignant cells. AM:rg HEADER OPERATION: Not noted PRE-OP DIAGNOSIS: D30.3 TISSUE SUBMITTED: Urine for cytology Signed Lucho Jess 12/07/16 <signat ure on file> 72-Ofu-876885:03 URINE OLIVER CULTURE-ALYSA COL Comments: PATIENT NOT FASTINGPERFORMED BY: [facility] Center[facility]ugxpn[facility]89 [facility] [id number] Information: SRC:UC COUNT (47775) Result 1 MUG (Normal) Comments: Mixed urogenital flora1,000 Colonies/mL Urine Culture,Comprehensive Final report (Normal) 72-Hna-032285:57 Urinalysis, Office (43723) UA - LEUKOCYTE ESTERASE Trace (Normal) UA - NITRITE Negative (Normal) URINE UROBILINGN ALYSA TIMED Normal mg/dL (Normal) UA - PROTEIN Negative mg/dL (Normal) UA - PH 5 (Abnormal) UA - BLOOD Hemolyzed Small (Normal) UA - SPECIFIC GRAVITY 1.020 (Normal) UA - KETONES Negative mg/dL (Normal) UA - BILIRUBIN Negative (Normal) UA - GLUCOSE Negative (Normal) 80-Uzx-961621:06 HgA1C , Office (76144) HgA1C , Office 5.6 % (Normal) Range: 4.6 - 7.1 27-Dkc-427311:06 Blood Glucose , Office (73225) Blood Glucose , Office 138 (Normal) 69-Ghc-396467:03 HgA1C , Office (31044) HgA1C , Office 5.7 % (Normal) Range: 4.6 - 7.1 :29 HgA1C , Office (23591) HgA1C , Office 5.9 % (Normal) Range: 4.6 - 7.1 :19 BLADDER TUR See Note (Normal) Comments: [facility] [id number] [place], [place], [id number] Comments: Patient: PARIS LEIVA : 1950 (65/F) Acct Num: [id number] Phys: Cheng WISE,Erasmo Unit Num: [id number] Loc: [facility] Specimen: [id number] Received: 07/22/15 - 1310 Spec Type : [...] one cassette. / JONA:qi 07/22/15 TC:3 CPT: 78552 HEADER OPERATION: Cysto, bl adder tumor PRE-OP DIAGNOSIS: Bladder tumor TISSUE SUBMITTED: Bladder tumor MICROSCOPIC DESCRIPTION Slides are reviewed. MICROSCOPIC DIAGNOSIS Bladder tumor, biopsy: Fragments of u rothelial mucosa with mild chronic inflammation. Negative for malignancy in the submitted specimen. SJ: 07/25/15 Signed Abram Loya 07/25/15 <signature on file> 62-Wxc-025092:10 Serum Creatinine AND GFR Comments: Test performed at:[address] [address] EST GFR - AA 70 mL/min (Normal) EST GFR 58 mL/min (Abnormal) CREAT,SERUM 1.01 mg/dL (Normal) Range: 0.55-1.20 Comments: Please note revised CREATININE reference range gmdxziist47/22/2015. 80-Lzw-351584:15 Cytology, Body Fluid / CSF Comments: Specimen Source: URINETest performed at:[facility] [address] [place] [address] CYTOLOGY,BF/CSF SEE PATHOLOGY REPORT Comments: Specimen submitted to Anatomical Pathology Department [facility]. (Normal) 13-Hfk-47218:00 CYTOSPIN ON FLUID See Note (Normal) Comments: Test performed at:[facility] [address] [place] [address] Comments: Patient: PARIS LEIVA : 1950 (64/F) Acct Num: [id number] Phys: Cheng WISE,Erasmo Unit Num: [id number] Loc: LABSPEC Specimen: [id number] Received: 06/06/15 - 1515 Spec T ype: CYSPIN FL TISSUES TISSUES: COMMENT The specimen contains acute inflammatory cells. Clinical correlation is suggested. CULTURE RESULTS No results available. CYTOLOGY G VALERIE Received is 80 ml of dark yellow cloudy fluid designated urine. Submitted for cytology preparation. / 06/07/15 TC:2 CPT: 81500 CYTOLOGY STUDY Slides are reviewed. DIAGNOSIS CYTOLO GY Urine for cytology (cytospin): Negative for malignant cells. AM:ch 06/08/15 HEADER OPERATION: Not noted PRE-OP DIAGNOSIS: Hematuria TISSUE SUBMITTED: Urine cytology Sign ed Lucho Jess 06/08/15 <signature on file> 4-Rdq-521350:00 Urinalysis, Office (55042) UA - LEUKOCYTE ESTERASE Negative (Normal) UA - NITRITE Negative (Normal) URINE UROBILINGN ALYSA TIMED 2 mg/dL (Normal) UA - PROTEIN Negative mg/dL (Normal) UA - PH 5.0 (Normal) UA - BLOOD Non Hemolyzed Moderate (Normal) UA - SPECIFIC GRAVITY 1.030 (Abnormal) UA - KETONES 15 mg/dL (Abnormal) UA - BILIRUBIN Negative (Normal) UA - GLUCOSE Negative (Normal) 9-Gjs-476286:10 Blood Glucose , Office (59468) Blood Glucose , Office 129 (Normal) 16-Yuj-503668:36 Pap IG Comments: Source.............Cervical;EndocervicalOther..............Post MenopausalNo. of containers..01 CYTYC Thin Prep VialPATIENT NOT FASTINGPERFORMED BY: =G Lab[address] 253 (Image [id number] BY: Gidsy[address] [id number] Guided) Note: PAPSMR (Normal) Comments: The Pap [...] medical examination at health care facilityGeno Norton Industrial Garage Servicer (ASCP) 53-Dhp-402052:36 Thin Comments: Source.............Cervical;EndocervicalOther..............Post MenopausalNo. of containers..01 CYTYC Thin Prep VialPATIENT NOT FASTINGPERFORMED BY: =G LabTradeBriefs[address] [place] [address] 253 Prep Pap [id number] BY: [address]ids[address] [id number] Information: [id number] (89331) Age Gdln ACOG Testing AGE4 (Normal) Comments: <21 or >65 or no age provided 42-Atd-068576:01 HgA1C , Office (79631) HgA1C , Office 5.9 % (Normal) Range: 4.6 - 7.1 02-Vwx-841395:01 Blood Glucose , Office (56785) Blood Glucose , Office 99 (Normal) 74-Njh-633031:51 HgA1C , Office (63101) HgA1C , Office 6.2 % (Normal) Range: 4.6 - 7.1 01-Mgg-812762:08 CALCIFEDIOL (06136) Comments: PATIENT NOT FASTINGPERFORMED BY: [facility] Zchxsc0488 [facility] [id number] Information: [id number], [id number] Vitamin D, 25-Hydroxy 23.7 ng/mL (Abnormal) Range: 30.0-100.0 Comments: Vitamin D deficiency has been defined by the [place] ofMedicine and an Endocrine Society practice guideline as alevel of serum 25-OH vitamin D less than 20 ng/mL (1,2).The Endocrine Society went on to further define vitamin Dinsufficiency as a level between 21 and 29 ng/mL (2).1. IOM ([place] of Medicine). 2010. Dietary reference intakes for calcium and D. [place]cd[place]: The National AcademPrestiamoci Press.2. Bianca MF, Hermann CARBAJAL, Luis Alberto SCHNEIDER, et al. Evaluation, treatment, and prevention of vitamin D deficiency: an Endocrine Society clinical practice guideline. JCEM. 2010; 96(7):1911-30. :50 HgA1C , Office (36797) HgA1C , Office 5.9 % (Normal) Range: 4.6 - 7.1 :50 Blood Glucose , Office (85711) Blood Glucose , Office 84 (Normal) :21 OLIVER CULTURE-OTHER (87211) Comments: PATIENT NOT FASTINGPERFORMED BY: [facility]6370 [facility] [id number] Information: SRC:THRT [id number] Result 1 RRF (Normal) Comments: Routine respiratory max Upper Respiratory Culture Final report (Normal) :10 HgA1C , Office (55361) HgA1C , Office 5.8 % (Normal) Range: 4.6 - 7.1 :10 Blood Glucose , Office (98576) Blood Glucose , Office 117 (Normal) :32 HgA1C , Office (16276) HgA1C , Office 6.0 % (Normal) Range: 4.6 - 7.1 :32 Blood Glucose , Office (93241) Blood Glucose , Office 141 (Normal) Comments: just ate :59 HgA1C , Office (04314) HgA1C , Office 6.0 % (Normal) Range: 4.6 - 7.1 :59 Blood Glucose , Office (64197) Blood Glucose , Office 125 (Normal) :50 PARATHORMONE (51575) Comments: PATIENT WAS FASTINGPERFORMED BY: MitrionicsClara Maass Medical CenterWcqldx5111 [facility] [id number] PTH, Intact 39 pg/mL (Normal) Range: 15-65 :50 LIPID PANEL (92076) Comments: PATIENT WAS FASTINGPERFORMED BY: [facility] Ysjafx5571 [facility] [id number] LDL/HDL Ratio 1.5 {ratio_units} (Normal) Range: 0.0-3.2 [...] METABOLIC PANEL, Comments: PATIENT WAS FASTINGPERFORMED BY: MitrionicsClara Maass Medical CenterTvshrb4114 [facility] [id number] Information: [id number] COMPREHENSIVE (03114) ALT (SGPT) 20 [iU]/L (Normal) Range: 0-40 [...] Glucose, Serum 104 mg/dL (Abnormal) Range: 65-99 23-Nsh-006455:08 [facility] [id number] Comments: CYTOLOGY INFORMATION:- CLINICAL INFORMATION: - DATE LMP/MENOPAUSE: MENOPAUSE- COLLECTION VIAL: Thin Prep Vial- TAKE DOWN INSPECTOR SOURCE: - COLLECTION TECHNIQUE: HPV HC,HGH . [...] was developed and its performancecharacteristics determined by [facility]. It has not beencle ared or approved by the U.S. Food and DrugAdministration. The FDA has determined that such clearanceor approval is not necessary. This test is used for clinicalpurposes. It should not be regarded as inv estigational orfor research. RAYMOND SYED 03/01/[birth year] 4250 PAPSMR Comment Comments: The Pap smear is [...] (endocervical componen (Normal) t) are present.Freida Forman, Industrial Garage Servicer (ASCP)This liquid based ThinPrep(R) pap test was screened withthe use of an image guided system. :00 YINKA and PE, Random Urine Comments: PERFORMED BY: [employer] [place] [id number] Gamma Globulin, U 20.4 % (Normal) Immunofixation Result, Urine UPEIP (Normal) Comments: No monoclonality detected.Protein electrophoresis scan will follow via computer, mail, orcourier delivery. M-Homar, % Not Observed % (Normal) Vzfez-5-Ylivrokt, U 21.5 % (Normal) Beta Globulin, U 23.0 % (Normal) Myiqf-2-Mybcdbrs, U 7.3 % (Normal) Albumin, U 27.8 % (Normal) Protein,Total,Urine 4.1 mg/dL (Normal) Range: 0.0-15.0 :00 Urinalysis, Routine Comments: PERFORMED BY: [employer] [place] [id number] Bilirubin Negative (Normal) Microscopic Examination MICRON (Normal) Comments: Microscopic follows if indicated. Nitrite, Urine Negative (Normal) Urobilinogen,Semi-Qn 0.2 mg/dL (Normal) Range: 0.0-1.9 Glucose Negative (Normal) Ketones Negative (Normal) Occult Blood Negative (Normal) Protein Negative (Normal) WBC Esterase Negative (Normal) Appearance Clear (Normal) pH 7.0 (Normal) Range: 5.0-7.5 Urine-Color Yellow (Normal) Specific [place] 1.024 (Normal) Range: 1.005-1.030 95-Skd-605018:35 Calcium, 24Hr Urine Comments: PERFORMED BY: [facility]6370 [facility] [id number] Information: 04/26@8AM 04/27@8AM Calcium, Urine 24hr 210.0 {mg/24_hr} (Normal) Range: 100.0-300.0 Calcium, Urine 21.0 mg/dL (Normal) :25 Blood Glucose , Office (89016) Blood Glucose , 113 (Normal) Office : Calcium, Serum 10.2 mg/dL (Normal) Comments: PERFORMED BY: [facility] Mnfmjh2185 [facility] [id number] Range: 8.6-10.2 :00 Protein Electro, Random Urine Comments: PERFORMED BY: [facility] Qkhurd9889 [facility] [id number] Gamma Globulin, U 18.9 % (Normal) M-Homar, % Not Observed % (Normal) Please note: SPRCS (Normal) Comments: Protein electrophoresis scan will follow via computer, mail, orcourier delivery. Hcbex-8-Tbamauhc, U 6.1 % (Normal) Zlyvu-4-Lngbmemo, U 16.1 % (Normal) Beta Globulin, U 33.4 % (Normal) Albumin, U 25.5 % (Normal) Protein,Total,Urine 7.9 mg/dL (Normal) Range: 0.0-15.0 :00 Protein Electro.,S Comments: PERFORMED BY: [employer]6370 [facility] [id number] A/G Ratio 1.5 (Normal) Range: 0.7-2.0 Globulin, Total 2.8 g/dL (Normal) Range: 2.0-4.5 M-Homar Not Observed g/dL (Normal) Please note: SPRCS (Normal) Comments: Protein electrophoresis scan will follow via computer, mail, orcourier delivery. Aruyg-4-Pacwgrhx 0.1 g/dL (Normal) Range: 0.1-0.4 Jsxkp-7-Tsjoyczb 0.7 g/dL (Normal) Range: 0.4-1.2 Beta Globulin 1.0 g/dL (Normal) Range: 0.6-1.3 Gamma Globulin 0.9 g/dL (Normal) Range: 0.5-1.6 Albumin 4.1 g/dL (Normal) Range: 3.2-5.6 Protein, Total, Serum 6.9 g/dL (Normal) Range: 6.0-8.5 : PTH, Intact 87 pg/mL (Abnormal) Comments: PERFORMED BY: [facility] Blpesz1281 [facility] [id number] Range: 15-65 5-Lww-104255:12 HgA1C , Office (76770) HgA1C , Office 5.8 % (Normal) Range: 4.6 - 7.1 Comments: aw 1-Ujc-964931:55 Thin prep Pap Comments: Source.............Cervical;EndocervicalLMP / Prev Treat...FIM=[id number]. of containers..01 CYTYC Thin Prep VialPATIENT NOT FASTINGClinical Information: ADD [id number] PERFORMED BY: [facility] (84090) [address] [id number] . . (Normal) DIAGNOSIS: SPRCS (Normal) Comments: NEGATIVE FOR INTRAEPITHELIAL LESION AND MALIGNANCY.CELLULAR CHANGES ASSOCIATED WITH INFLAMMATION ARE PRESENT.Satisfactory for evaluation. Endocervical and/or squamous metaplasticcells (endocervical com ponent) are present.V72.31 ; Routine gynecological examinationMarissa Del Cid Industrial Garage Servicer (ASCP) Note: PAPSMR (Normal) Comments: The Pap [...] Plan of Care Name Dates Details Instructions BMI 32.0-32.9,adult : Eprescribed prescriptions (G8553) Indication: [...] - Nonprescription Treatment Indication: Hypercholesterolemia Planned Observations HEPATITIS C ANTIBODY (32391)Indication: Encounter for hepatitis C virus screening test for high risk patient On: 98-Hxk-239699:28 Request LIPID PANEL (51285)Indication: Hypercholesterolemia On: 94-Dpq-572470:36 Request Comments: Oct 2018 CALCIFEDIOL (64644)Indication: Hyperparathyroidism, primary On: 07-Uzf-719009:35 Request Comments: Oct 2018 PARATHORMONE (28676)Indication: Hyperparathyroidism, primary On: 76-Pmk-928474:35 Request Comments: Oct 2018 CBC & PLATELETS (AUTO) (11237)Indication: Other abnormal glucose On: 37-Nvb-924908:35 Request Comments: Oct 2018 Metabolic Panel, Comprehensive (58693)Indication: Other abnormal glucose On: 61-Lui-388854:35 Request Comments: Oct 2018 CBC & PLATELETS (AUTO) (39129)Indication: Anemia On: 5-Zcb-834942:10 Request CALCIFEDIOL (53538)Indication: Vitamin D deficiency On: 3-Cwj-290912:10 Request PARATHORMONE (75808)Indication: Hyperparathyroidism, primary On: 6-Nks-691507:09 Request Metabolic Panel, Comprehensive (65540)Indication: Other abnormal glucose On: 7-Gwo-147691:09 Request PARATHORMONE (70181)Indication: Hyperparathyroidism, primary On: :19 Request Comments: Oct 2017 PARATHORMONE (09317)Indication: Hyperparathyroidism, primary On: :19 Request Comments: March 2017 URINALYSIS (81915)Indication: Hematuria On: :11 Request Comments: March 2017 URINALYSIS (92126)Indication: Hematuria On: :09 Request Comments: Oct 2017 CBC & PLATELETS (AUTO) (64908)Indication: Hypercholesterolemia On: :08 Request Comments: Oct 2017 CBC & PLATELETS (AUTO) (02400)Indication: Hypercholesterolemia On: :07 Request Comments: March 2017 CALCIFEDIOL (52885)Indication: Post-menopausal On: :07 Request Comments: oct 2017 CALCIFEDIOL (82546)Indication: Post-menopausal On: :07 Request Comments: March 2017 Lipid Panel (51506)Indication: Hypercholesterolemia On: :06 Request Comments: Oct 2017 Metabolic Panel, Comprehensive (45653)Indication: Other abnormal glucose On: :06 Request Comments: Oct 2017 Metabolic Panel, Comprehensive (78867)Indication: Other abnormal glucose On: :06 Request Comments: March 2017 Lipid Panel (36174)Indication: Hypercholesterolemia On: :05 Request Comments: March 2017 CALCIUM SERUM (99898)Indication: Vitamin D deficiency On: 58-Lxo-554186:44 Request CALCIFEDIOL (60822)Indication: Vitamin D deficiency On: 38-Ctb-242557:44 Request URINALYSIS, W/ MICRO (88206)Indication: Hematuria On: :25 Request Comments: [facility] PARATHORMONE (62590)Indication: Hyperparathyroidism, primary On: :25 Request LIPID PANEL (74254)Indication: Hypercholesterolemia On: :21 Request Comments: 10/29 CBC, PLATELETS & AUT DIFF (53752)Indication: Goiter On: :20 Request Comments: 10/29 TSH (THYROID STIMULATING HORMONE) (80329)Indication: Goiter On: 96-Rsq-787638:20 Request Comments: 10/29 VITAMIN B-12 (CYANOCOBALAMIN) (46537)Indication: Fatigue On: 53-Fqe-747711:20 Request Comments: may 2016 RHEUMATOID FACTOR-QUANT (59773)Indication: Fatigue On: 79-Oes-189784:19 Request Comments: may 2016 Folate (06925)Indication: Fatigue On: :19 Request Comments: may RATE ERYTHROCYTE (36667)Indication: Fatigue On: 23-Ggt-421205:18 Request Comments: oct 2015 METABOLIC PANEL, COMPREHENSIVE (52536)Indication: Fatigue On: :18 Request Comments: october CALCIFIDIOL (47948) VIT D 25Indication: Fatigue On: :17 Request CALCIFEDIOL (57497)Indication: Vitamin D deficiency On: 89-Hly-328358:00 Request Comments: end may CALCIFEDIOL (83163)Indication: Vitamin D deficiency On: 19-Apr-20168:47 Request CALCIFEDIOL (00705)Indication: Hyperparathyroidism, primary On: 5-Bzj-181875:56 Request PARATHORMONE (12973)Indication: Hyperparathyroidism, primary On: 7-Kxy-829614:56 Request Lipid Panel (67918)Indication: Hypercholesterolemia On: 8-Lzb-252673:56 Request Metabolic Panel, Comprehensive (65581)Indication: Hypercholesterolemia On: 0-Tqh-102814:56 Request HgA1C , Office (13423)Indication: Other abnormal glucose On: 7-Yay-988360:11 Request URINALYSIS, W/ MICRO (23132)Indication: Hypercholesterolemia On: 16-Sll-893102:42 Request METABOLIC PANEL, COMPREHENSIVE (98999)Indication: Hypercholesterolemia On: 89-Gzu-775936:42 Request LIPID PANEL (67251)Indication: Hypercholesterolemia On: 18-Lhw-499984:42 Request CBC W/AUTO DIFF WBC (29731)Indication: Hypercholesterolemia On: 20-Huw-712931:42 Request CBC WITH MANUAL DIFF (70519)Indication: Other abnormal glucose On: :17 Request METABOLIC PANEL, COMPREHENSIVE (79837)Indication: Hypercholesterolemia On: 91-Xgo-830766:17 Request LIPID PANEL (23635)Indication: Hypercholesterolemia On: :17 Request Blood Glucose , Office (30037)Indication: Other abnormal glucose On: 11-Vjg-886487:51 Request METABOLIC PANEL, COMPREHENSIVE (25715)Indication: Hypercholesterolemia On: :31 Request Comments: in six months (approximately) LIPID PANEL (97348)Indication: Hypercholesterolemia On: :31 Request Comments: in six months (approximately) Rapid Strep Test, Office (83850)Indication: Acute pharyngitis On: 4-Uny-345209:32 Request LIPID PANEL (43914)Indication: Hypercholesterolemia On: :28 Request METABOLIC PANEL, COMPREHENSIVE (81901)Indication: Hypercholesterolemia On: :28 Request CBC WITH MANUAL DIFF (73627)Indication: Hypercholesterolemia On: 6-Nsa-612070:11 Request LIPID PANEL (04322)Indication: Hypercholesterolemia On: 4-Ngt-435083:10 Request METABOLIC PANEL, COMPREHENSIVE (21256)Indication: Hyperparathyroidism, primary On: 6-Lqn-353513:10 Request METABOLIC PANEL, COMPREHENSIVE (88010)Indication: Hyperparathyroidism, primary On: 15-May-20129:20 Request LIPID PANEL (16457)Indication: Hypercholesterolemia On: 15-May-20129:20 Request HPV automatic (16387)Indication: Screening for HPV (human papillomavirus) On: 04-Dcm-361868:20 Request Thin prep Pap (35560)Indication: Well woman exam On: 41-Bvm-308577:11 Request URINALYSIS (00044)Indication: Unspecified urinary incontinence On: 5-Qzh-713017:47 Request IMMUNOFIXATION ELECTROPHORESIS (97692)Indication: Other abnormal finding of urine On: 8-Nmu-055031:35 Request Comments: of urine HEPATIC FUNCTION PANEL (08296)Indication: Hypercholesterolemia On: 73-Vvl-054060:39 Request Comments: in six months (approximately) LIPID PANEL (61220)Indication: Hypercholesterolemia On: 52-Qal-010803:39 Request Comments: in in six months (approximately) Urine Protein Electrophoresis (UPEP) (34508)Indication: Hypercalcemia On: 27-Tvn-620677:38 Request Serum Protein Electrophoresis (SPEP) (50419)Indication: Hypercalcemia On: 17-Jvu-949621:38 Request URINE CALCIUM ALYSA TIMED (33998)Indication: Hypercalcemia On: 47-Vqr-828316:38 Request Comments: 24 hour PARATHORMONE (68820)Indication: Hypercalcemia On: 28-Vnc-747439:31 Request Calcium Serum (57544)Indication: Hypercalcemia On: 18-Vxj-409342:30 Request HgA1C , Office (75305)Indication: Impaired fasting glucose On: 05-Oze-305585:25 Request METABOLIC PANEL, COMPREHENSIVE (07185)Indication: Hypercholesterolemia On: :13 Request LIPID PANEL (01747)Indication: Hypercholesterolemia On: 9-Fpn-850946:13 Request Comments: in six months (approximately) CBC, Platelets & Auto Diff (65400)Indication: Hypercholesterolemia On: :32 Request Metabolic Panel, Comprehensive (70405)Indication: Hypercholesterolemia On: 2-Atf-726083:32 Request Lipid Panel (23657)Indication: Hypercholesterolemia On: 5-Ipj-517543:32 Request HEPATIC FUNCTION PANEL (87728)Indication: Hypercholesterolemia On: 1-Ouq-895659:33 Request Lipid Panel (23570)Indication: Hypercholesterolemia On: 6-Cze-074255:33 Request Comments: in six months (approximately) HEPATIC FUNCTION PANEL (92964)Indication: Hypercholesterolemia On: 00-Huz-635953:05 Request Lipid Panel (91592)Indication: Hypercholesterolemia On: 75-Lyf-938880:05 Request Comments: in six months (approximately) Lipid Panel (60918)Indication: Hypercholesterolemia On: 37-Ltu-432239:43 Request Metabolic Panel, Comprehensive (78605)Indication: Hypercholesterolemia On: 38-Mcd-221355:43 Request Thin prep Pap (65694)Indication: Well woman exam On: 64-Dhp-505322:43 Request HEPATIC FUNCTION PANEL (13548)Indication: Hypercholesterolemia On: 7-Sbl-974247:27 Request LIPID PANEL (91770)Indication: Hypercholesterolemia On: 6-Pjb-794767:27 Request Comments: in three months Planned Encounters Medical; 6 Month FU - On: 27-Oct-2018 13:30 [facility] Ellen Fonseca CNP, CNP, Ellen Ma Planned Procedures Flu Vaccine (Quadrivalent) On: 24-Jul-2018 Intent 11325Wd: Randi Dietz Comments: Lot #[id number]-1/30/2019Site-L dltd, IMDose prefilled syringegiven by: GEOFF JAMA reviewed and ABN signed MAMMOGRAM BREAST BILATERAL On: 15-Nov-2017 Intent SCREENING DIGITAL (48793)By: Raymundo DECKER, Patrica Raymundo RETREADER, Patrica US THYROID (23828)By: Raymundo On: 14-Nov-2017 Intent RETREADER, Patrica Melloa RETREADER, Patrica Comments: FAX RESULTS TO DR MARY GARCIA, [facility] DEXA SCAN AXIAL SKELETON On: 23-Jan-2017 Intent (01248)By: Raymundo DECKER Patrica Almabecky DECKER, Patrica MAMMOGRAM BREAST SCREENING On: 24-Oct-2016 Intent DIGITAL (G0202)By: Michael Kelly MD THYROID ULTRASOUND (24568)By: On: 24-Apr-2016 Intent Michael Kelly MD Comments: 10/30 Ultrasound - ThyroidBy: On: 21-Oct-2015 Intent Alessandra Hudson MD Comments: [facility] (Quadrivalent) On: 21-Oct-2015 Intent 65686Gq: Alessandra Hudson MD Comments: Lot #:[id number] date:Amount given:0.5mlRoute: IMSite given:L DltdGiven by: Carmelina BONILLA and ABN signed Quad Flu BILATERAL MAMMOGRAMS On: 21-Oct-2015 Intent (67595)By: Alessandra Hudson MD Solu -Medrol Injection, 125 On: 03-Mar-2015 Intent mg (J2930)By: Becca WISE, Comments: lot:[id number]:07/30route:IMdose:125MGSite:R glutgiven by: CAROLINE Varner Solu -Medrol Injection, 125 On: 03-Mar-2015 Intent mg (J2930)By: Alessandra Hudson MD DEXA SCAN AXIAL SKELETON On: 04-Oct-2014 Intent (20604)By: Alessandra Hudson MD Comments: postmean[pausal had at [facility] ADMINISTRATION OF INFLUENZA On: 04-Oct-2014 Intent VIRUS VACCINE (G0008)By: Alessandra Hudson MD Flu Vaccine (Quadrivalent) On: 04-Oct-2014 Intent 57445Cx: Alessandra Hudson MD BILATERAL MAMMOGRAMS On: 23-Mar-2014 Intent (25082)By: Alessadnra Hudson MD EKG (91513)By: Becca WISE, On: 22-Sep-2013 Intent Alessandra Varner Comments: see scanned document of test done to see results reviewed today with patient Eprescribed prescriptions On: 22-Sep-2013 Intent (G8553)By: Riddhi Hobson LPN Eprescribed prescriptions On: 22-Sep-2013 Intent (G8553)By: Riddhi Hobson LPN Eprescribed prescriptions On: 17-Aug-2013 Intent (G8553)By: Jamila Garcia Eprescribed prescriptions On: 16-Mar-2013 Intent (G8553)By: Alessandra Hudson MD MAMMOGRAM, SCREENING, BOTH On: 16-Mar-2013 Intent BREASTS (62771)By: Alessandra Hudson MD MAMMOGRAM, SCREENING, BOTH On: 07-Feb-2012 Intent BREASTS (82799)By: Alessandra Hudson MD MAMMOGRAM, SCREENING, BOTH On: 20-Feb-2011 Intent BREASTS (27169)By: Becca Comments: march 2011 Alessandra WISE DXA, BONE DENSITY, AXIAL On: 20-Nov-2010 Intent SKELETON (89366)By: Alessandra Hudson MD MAMMOGRAM, SCREENING, BOTH On: 20-Nov-2010 Intent BREASTS (38697)By: Alessandra Hudson MD MAMMOGRAM, SCREENING, BOTH On: 25-Apr-2010 Intent BREASTS (22594)By: Alessandra Hudson MD MAMMOGRAM, SCREENING, BOTH On: 15-Mar-2009 Intent BREASTS (91815)By: Alessandra Hudson MD IV Lactated Ringers 1000mlBy: On: 17-Sep-2008 Intent CONCEPCION Valencia Comments: Lot #:[id number] date:mount given:1000mlRoute: IVSite given:rt. anticubital Given by: erussell#22 initiated to rt. anticub without difficulty, infused without difficulty patient tolerated with no complaints IV Needle placement On: 17-Sep-2008 Intent (70851)By: CONCEPCION Valencia IV Infusion (70453)By: On: 17-Sep-2008 Intent [facility]CE[facility] Toradol Injection, 30 mg On: 17-Sep-2008 Intent (J1885)By: Alessandra Hudson MD Comments: Lot #:[id number] date:1-1-5029Pzaaan given:30mg Route: IVSite given:rt. anticub Given by: Dr. Hudson TD Injection , IM (33723)By: On: 14-Sep-2008 Intent Alessandra Hudson MD EKG (95566)By: Becca WISE, On: 14-Sep-2008 Intent Alessandra Varner MAMMOGRAM, SCREENING, BOTH On: 15-Mar-2008 Intent BREASTS (12389)By: Alessandra Hudson MD Pelvic and Breast, Medicare On: 15-Mar-2008 Intent (G0101)By: Alessandra Hudson MD Bone Density StudyBy: Becca On: 15-Mar-2008 Intent Alessandra WISE Comments: do 2 years from last, estrogen deficient MAMMOGRAM, SCREENING, BOTH On: 16-Aug-2006 Intent BREASTS (25472)By: Alessandra Hudson MD Planned Medications INJECTION, METHYLPREDNISOLONE SODIUM SUCCINATE, UP TO 125 MG Ordered: 03-Mar-2015 Pending Alessandra Hudson MD INJECTION, METHYLPREDNISOLONE SODIUM SUCCINATE, UP TO 125 MG Ordered: 03-Mar-2015 Pending Alessandra Hudson MD Instructions Name Dates Details BMI 32.0-32.9,adult : How to access health [...] pharyngitis Hypercholesterolemia : Patient Instructions Indication: Hypercholesterolemia Encounters Office Visit On: 24-Jul-2018 7:25 Encounter Reason: [...] does not have durab le power of assistant district attorney. The patient has noticed nothing from the geriatic depression scale. Other providers contributing to the patient's care are other: (dr. snow- eye drLashell last exam - 05/2018). Note for Annual [...] for Discuss procedure results: Had labs at [facility] include VD , UA showing 0-5 [...] patient does not have durable power of assistant district attorney or living will. The patient has noticed no thing from the geriatic depression scale. Other providers contributing to the patient's care are gastrologist (Dr. Andrew Minaya [facility] ) and urologist (Dr. Pabon ).Encounter Diagnosis: [...] symptoms have been associated with itching.Encounter Diagnosis: Hivjuanjose [facility] Historical Summary On: 25-Nov-2014 [...] patient does not have durable power of assistant district attorney or living will. The patient has noticed nothin g from the geriatic depression scale. Other providers contributing to the patient's care are gastrologist (Dr. Andrew Minaya ([facility]) ) and other: (Opthalm: Dr. Santillan ).Encounter [...] patient does not have durable power of assistant district attorney or living will. Other providers contributing to the patient's care are other: (see Dr. victor [facility]). Encounter Diagnosis: Hypercholesterolemia (272.0), Other Abnormal [...] [facility] End: 16-Aug-2006 7:34 Payers MedicareAultcareAultcareLinda Mellor; a guarantor
--- OUTSIDE RECORDS SUMMARY | 2019-01-05 04:38 | XMS RPT_ITS ---
:1950 Author Organization [place] Support Name Relationship Address Phone BRIDENTHAL, JORDYN Unavailable [phone] + [place] [address] KRISTOPHER, PRACHI Unavailable [address] + [place] [address] R Unavailable Unavailable Unavailable BRIDENTHAL, ALDO Unavailable [address] + [place], [place] [phone] KRISTOPHER, PRACHI Unavailable [address] Unavailable [place], [place] [phone] NOT GIVEN Unavailable Unavailable Unavailable BRIDENTHAL, ALDO Unavailable [address] + [place], [place] [phone] KRISTOPHER, PRACHI Unavailable [address] Unavailable [place], [place] [phone] NOT GIVEN Unavailable Unavailable Unavailable BRIDENTHAL, JORDYN Unavailable . + [place] [address] KRISTOPHER, PRACHI Unavailable [address] + [place] [address] R Unavailable Unavailable Unavailable BRIDENTHAL, ALDO Unavailable [address] + [place], [place] [phone] KRISTOPHER, PRACHI Unavailable [address] Unavailable [place], [place] [phone] NOT GIVEN Unavailable Unavailable Unavailable BRIDENTHAL, JORDYN Unavailable . + [place] [address] KRISTOPHER, PRACHI Unavailable [address] + [place] [address] R Unavailable Unavailable Unavailable BRIDENTHAL, JORDYN Unavailable . + [place] [address] KRISTOPHER, PRACHI Unavailable [address] + [place] [address] R Unavailable Unavailable Unavailable KRISTOPHER, PRACHI Unavailable [address] + [place] [address] R Unavailable Unavailable Unavailable PRACHI SUMMERS Unavailable [address] + [place] [address] R Unavailable Unavailable Unavailable Care Team Providers Name Role Phone ELLEN OSMAN [employer] Admitting Unavailable CIESA, ELLEN [employer] Attending Unavailable CIESA, ELLEN [employer] Primary Care Unavailable MICHAEL MOSQUEDA MD Consulting Unavailable PROVIDER, UNKNOWN Consulting Unavailable CIESA, ELLEN [employer] Admitting Unavailable CIESA, ELLEN [employer] Attending Unavailable CIESA, ELLEN [employer] Primary Care Unavailable CIESA, ELLEN [employer] Consulting Unavailable PROVIDER, UNKNOWN Consulting Unavailable PROVIDER, UNKNOWN Consulting Unavailable CIESA, ELLEN [employer] Admitting Unavailable CIESA, ELLEN [employer] Attending Unavailable CIESA, ELLEN [employer] Primary Care Unavailable CIESA, ELLEN [employer] Consulting Unavailable PROVIDER, UNKNOWN Consulting Unavailable PROVIDER, UNKNOWN Consulting Unavailable Ciesa, Ellen Attending Unavailable Michael Mosqueda MD Referring Unavailable Ciesa, Ellen Consulting Unavailable Ciesa, Ellen Attending Unavailable Ciesa, Ellen Referring Unavailable Ciesa, Ellen Primary Care Unavailable Ciesa, Ellen Attending Unavailable Ciesa, Ellen Referring Unavailable Ciesa, Ellen Primary Care Unavailable Nik Chicas Attending Unavailable Ciesa, Ellen Referring Unavailable Ciesa, Ellen Primary Care Unavailable Nik Chicas Attending Unavailable Nik Chicas Referring Unavailable Ciesa, Ellen Primary Care Unavailable Nik Chicas Attending Unavailable Ciesa, Ellen Referring Unavailable Ciesa, Ellen Primary Care Unavailable Nik Chicas Attending Unavailable PROBLEMS PROBLEMS DATE TYPE CONDITION / CODE ATTENDING STATUS SOURCE 11/06/2018 Unknown E04.1 - Nontoxic Ciesa Ellen Active [place] single thyroid [facility] nodule / Hospital E04.1(ICD-10) Repository 12/10/2017 Unknown E04.2 - Nontoxic Nik Chicas Active [place] multinodular [facility] goiter / Hospital E04.2(ICD-10) Repository PROCEDURES PROCEDURES No Procedure Records FoundRESULTS RESULTS THYROID Observed: 10/31/2018 Status: F Source: [place] 2:23 PM [facility] REPOSITORY [facility] Imaging Services [address] [place] [address] Thyroid MR#: [id number] Acct: [id number] Name: PARIS SUMMERS Rep #: [id number] : 1950 F 68 From: Navi Garcia MD PCP: Ellen Osman NP Status: REG CLI Study: Thyroid Date of Exam: 10/31/18 Exam# [id number] Ordering Dr: Ellen Osman STUDY: THYROID ULTRASOUND REASON FOR EXAM: Female, 68 years old. Thyroid nodules follow-up TECHNIQUE: Ultrasound evaluation of the thyroid was performed with real-time and static barboza-scale imaging. COMPARISON: 11/14/2017 FINDINGS: RIGHT LOBE: The right lobe of the thyroid gland measures 4.8 x 1.6 x 1.7 cm. There is a heterogeneous echotexture. Nodule adjacent to the isthmus measures 15 mm, stable. There is a 10 mm nodule in the right thyroid lobe which is slightly smaller since the prior study. No new or enlarging thyroid nodule. LEFT LOBE: The left lobe of the thyroid gland measures 3.7 x 1.5 x 1.6 cm. There is a heterogeneous echotexture. Similar thyroid nodule since prior study with the largest measuring up to 13 mm, when measured in a similar fashion. There is also a nodule along the left side of the isthmus which measures up to 6 mm. No new or enlarging thyroid nodule. ISTHMUS: The isthmus measures 4 mm. The regional lymph nodes are normal. US/Thyroid IMPRESSION: 1. Stable multinodular thyroid gland. No new or enlarging thyroid nodule. Electronically Signed: Navi Garcia MD at 16:38 EST , Service support , CC: Ellen Osman NP Tour Narrator: Signed CBC Collected: 10/20/2018 Status: F Source: [place] 10:06 AM [facility] REPOSITORY TYPE CODE TESTS RESULT OUT OF RANGE REFERENCE UNITS LAB CBC(LOINC) CBC Result Comment: CBC-COMPLETE BLOOD COUNT LAB WBC(LOINC) 4.5 - 10.8 x 10EE3/UL WBC 8.2 LAB RBC(LOINC) 4.10 - x 10EE6/UL 5.30 RBC 4.60 LAB HEMOGLOBIN(LOINC) 12.0 - g/dl 16.0 HEMOGLOBIN 13.1 LAB HEMATOCRIT(LOINC) 34.0 - % 46.0 HEMATOCRIT 39.3 LAB MCV(LOINC) 80 - 99 fl MCV 86 LAB MCH(LOINC) 27 - 33 pg MCH 28 LAB MCHC(LOINC) 32 - 36 X10 3 MCHC 33 LAB RDW/CV(LOINC) 12.0 - % 15.6 RDW/CV 14.1 LAB PLATELET(LOINC) 150 - 450 x10EE3/UL PLATELET 290 LAB MPV(LOINC) 6.6 - 10.5 fl MPV 9.1 Result Comment: AUTOMATED DIFFERENTIAL LAB NEUT %(LOINC) 46.0 - 76.0 % NEUT % 55.0 LAB LYMPH %(LOINC) 20.0 - 45.0 % LYMPH % 33.6 LAB MONOS %(LOINC) 0.0 - 10.0 % MONOS % 8.2 LAB EO %(LOINC) 0.0 - 7.0 % EO % 2.5 LAB BASO %(LOINC) 0.0 - 2.0 % BASO % 0.7 LAB Lymph #(LOINC) 0.80 - 2.80 x10EE3/U L Lymph # 2.70 LAB Neut #(LOINC) 1.50 - 7.10 x10EE3/U L Neut # 4.50 LAB [place] #(LOINC) 0.20 - 1.00 x10EE3/U L [place] # 0.70 LAB EO #(LOINC) 0.00 - 0.50 x10EE3/U L EO # 0.20 LAB Baso #(LOINC) 0.00 - 0.10 x10EE3/U L Baso # 0.10 LAB MANUAL DIFF(LOINC) MANUAL DIFF N/A LAB MORPHOLOGY(LOINC ) MORPHOLOGY N/A Result Comment: {CD] Performed By: #### [id number] #### [facility],[address] [place] [address] CMP WITH EGFR Collected: 10/20/2018 Status: F Source: [place] 10:06 AM [facility] REPOSITORY TYPE CODE TESTS RESULT OUT OF RANGE REFERENCE UNITS LAB CMP with eGFR(LOINC) CMP with eGFR Result Comment: COMPREHENSIVE METABOLIC PANEL LAB SODIUM(LOINC) 136 - 145 mmol/l SODIUM 143 LAB POTASSIUM(LOINC) 3.5 - 5.1 mmol/L POTASSIUM 3.8 LAB CHLORIDE(LOINC) 98 - 107 mmol/L CHLORIDE 104 LAB CO2(LOINC) 21.0 - mmol/L 31.0 CO2 High 32.4 LAB GLUCOSE(LOINC) 74 - 106 mg/dl GLUCOSE High 112 LAB BUN(LOINC) 6 - 20 mg/dl BUN High 22 LAB CREATININE(LOINC) 0.6 - 1.2 mg/dl CREATININE 0.9 LAB AST/SGOT(LOINC) 13 - 39 U/L AST/SGOT 16 LAB ALK PHOS(LOINC) 38 - 126 U/L ALK PHOS 84 LAB CALCIUM(LOINC) 8.6 - mg/dl 10.2 CALCIUM 9.5 LAB TOTAL 6.4 - 8.3 g/dl PROTEIN(LOINC) TOTAL PROTEIN 7.0 LAB ALBUMIN(LOINC) 3.4 - 4.8 g/dL ALBUMIN 4.1 LAB GLOBULIN(LOINC) 1.5 - 3.8 G/DL GLOBULIN 2.9 LAB A/G RATIO(LOINC) 0.9 - 1.6 A/G RATIO 1.4 LAB TOTAL BILI(LOINC) 0.0 - 1.5 mg/dl TOTAL BILI 0.4 LAB B/C RATIO(LOINC) 0 - 30 ratio B/C RATIO 24 LAB ALT/SGPT(LOINC) 8 - 35 U/L ALT/SGPT 15 LAB ANION GAP(LOINC) 10 - 20 mmol/L ANION GAP 10 LAB AGE(LOINC) years AGE 68 LAB eGFR(LOINC) 60 - 999 ML/MINUTE eGFR >60 LAB eGFR(AA)(LOINC) 60 - 999 ML/MINUTE eGFR(AA) >60 Result Comment: ACCORDING TO THE NATIONAL KIDNEY DISEASE EDUCATION PROGRAM(NKDE), A NORMAL eGFR IS A VALUE GREATER THAN OR EQUAL TO 60 ML/MIN/1.73 SQ METERS. CHRONIC KIDNEY DISEASE: <60mL/MIN/1.73 SQ METERS KIDNEY FAILURE: <15mL/MIN/1.73 SQ METERS THIS TEST SHOULD ONLY BE USED FOR PATIENTS 18 YEARS OF AGE AND OLDER. Performed By: #### [id number] #### [address] [address] LIPID PROFILE Collected: 10/20/2018 Status: F Source: [facility] 10:06 [facility] REPOSITORY TYPE CODE TESTS RESULT OUT OF REFERENCE UNITS RANGE LAB LIPID PROFILE(LOIN C) LIPID PROFILE Result Comment: LIPID PROFILE LAB TRIGLYCERIDE(LOINC) 0 - 150 mg/dl TRIGLYCERIDE 96 LAB CHOLESTEROL(LOINC) 0 - 200 mg/dl CHOLESTEROL 152 LAB HDL(LOINC) 40 - 60 mg/dl HDL 46 LAB CHOL/HDL(LOINC) 0.0 - 5.0 CHOL/HDL 3.3 LAB LDL(LOINC) 0 - 129 mg/dl LDL 87 Performed By: #### [id number] #### [address] [address] VITAMIN D, 25 Collected: 10/20/2018 Status: F Source: [facility] HYDROXY 10:06 [facility] REPOSITORY TYPE CODE TESTS RESULT OUT OF RANGE REFERENCE UNITS LAB VitD(LOINC) 30.00 - 100 ng/mL VitD 37.81 Result Comment: 25-OHD3 indicates both endogenous production and supplementation. 25-OHD2 is an indicator of exogenous sources, such as diet or supplementation. Therapy is based on measurement of Total 25-OHD, with levels <20 ng/mL indicative of Vitamin D deficiency, while levels between 20 ng/mL and 30 ng/mL suggest insufficiency. Optimal levels are >=30ng/mL. Vitamin D, 25-OH D3 Not Established Vitamin D, 25-OH D2 Not Established Performed By: #### [id number] #### [address] [address] PTH, INTACT [CCL] Collected: 10/20/2018 Status: F [facility] 10:06 [facility] REPOSITORY TYPE CODE TESTS RESULT OUT OF REFERENCE UNITS RANGE LAB PTH, INTACT [CCL](LOINC) PTH, INTACT [CCL] Result Comment: _PTH, INTACT [CCL]_ PTH, INTACT [CCL] Reported: 10/21/2018 11:26 Status=F TEST RESULT FLAG RANGE UNITS PTH, Intact 39 15-65 pg/mL 10/21/[email or web address].ATLR [facility] [address] [place] [address] Gudelia Bryant M.D. [id number] Performed By: #### [id number] #### [facility],[address] [place] [address] PTH, INTACT Collected: 10/20/2018 Status: F Source: [place] 10:06 AM [facility] REFERENCE REPOSITORY TYPE CODE TESTS RESULT OUT OF REFERENCE UNITS RANGE LAB PTH(LOINC) 15-65 pg/mL PTH, Intact 39 Performed By: #### PTHI #### [facility] Routine Lab [facility] [place] [id number] CBC Collected: 04/22/2018 Status: F Source: [facility] 10:37 AM [facility] REPOSITORY TYPE CODE TESTS RESULT OUT OF RANGE REFERENCE UNITS LAB CBC(LOINC) CBC Result Comment: CBC-COMPLETE BLOOD COUNT LAB WBC(LOINC) 4.5 - 10.8 x 10EE3/UL WBC 7.4 LAB RBC(LOINC) 4.10 - x 10EE6/UL 5.30 RBC 4.60 LAB HEMOGLOBIN(LOINC) 12.0 - g/dl 16.0 HEMOGLOBIN 13.3 LAB HEMATOCRIT(LOINC) 34.0 - % 46.0 HEMATOCRIT 38.8 LAB MCV(LOINC) 80 - 99 fl MCV 85 LAB MCH(LOINC) 27 - 33 pg MCH 29 LAB MCHC(LOINC) 32 - 36 X10 3 MCHC 34 LAB RDW/CV(LOINC) 12.0 - % 15.6 RDW/CV 13.9 LAB PLATELET(LOINC) 150 - 450 x10EE3/UL PLATELET 271 LAB MPV(LOINC) 6.6 - 10.5 fl MPV 8.7 Result Comment: AUTOMATED DIFFERENTIAL LAB NEUT %(LOINC) 46.0 - 76.0 % NEUT % 57.0 LAB LYMPH %(LOINC) 20.0 - 45.0 % LYMPH % 32.8 LAB MONOS %(LOINC) 0.0 - 10.0 % MONOS % 7.6 LAB EO %(LOINC) 0.0 - 7.0 % EO % 2.1 LAB BASO %(LOINC) 0.0 - 2.0 % BASO % 0.5 LAB Lymph #(LOINC) 0.80 - 2.80 x10EE3/U L Lymph # 2.40 LAB Neut #(LOINC) 1.50 - 7.10 x10EE3/U L Neut # 4.20 LAB [place] #(LOINC) 0.20 - 1.00 x10EE3/U L [place] # 0.60 LAB EO #(LOINC) 0.00 - 0.50 x10EE3/U L EO # 0.20 LAB Baso #(LOINC) 0.00 - 0.10 x10EE3/U L Baso # 0.00 LAB MANUAL DIFF(LOINC) MANUAL DIFF N/A LAB MORPHOLOGY(LOINC ) MORPHOLOGY N/A Result Comment: {CD] Performed By: #### [id number] #### [facility],[address] [place] [address] CMP WITH EGFR Collected: 04/22/2018 Status: F Source: [facility] 10:37 AM [facility] REPOSITORY TYPE CODE TESTS RESULT OUT OF RANGE REFERENCE UNITS LAB CMP with eGFR(LOINC) CMP with eGFR Result Comment: COMPREHENSIVE METABOLIC PANEL LAB SODIUM(LOINC) 136 - 145 mmol/l SODIUM 143 LAB POTASSIUM(LOINC) 3.5 - 5.1 mmol/L POTASSIUM 3.8 LAB CHLORIDE(LOINC) 98 - 107 mmol/L CHLORIDE 104 LAB CO2(LOINC) 21.0 - mmol/L 31.0 CO2 30.3 LAB GLUCOSE(LOINC) 74 - 106 mg/dl GLUCOSE 102 LAB BUN(LOINC) 6 - 20 mg/dl BUN High 22 LAB CREATININE(LOINC) 0.6 - 1.2 mg/dl CREATININE 0.8 LAB AST/SGOT(LOINC) 13 - 39 U/L AST/SGOT 18 LAB ALK PHOS(LOINC) 38 - 126 U/L ALK PHOS 82 LAB CALCIUM(LOINC) 8.6 - mg/dl 10.2 CALCIUM 9.3 LAB TOTAL 6.4 - 8.3 g/dl PROTEIN(LOINC) TOTAL PROTEIN 7.0 LAB ALBUMIN(LOINC) 3.4 - 4.8 g/dL ALBUMIN 4.1 LAB GLOBULIN(LOINC) 1.5 - 3.8 G/DL GLOBULIN 2.9 LAB A/G RATIO(LOINC) 0.9 - 1.6 A/G RATIO 1.4 LAB TOTAL BILI(LOINC) 0.0 - 1.5 mg/dl TOTAL BILI 0.5 LAB B/C RATIO(LOINC) 0 - 30 ratio B/C RATIO 28 LAB ALT/SGPT(LOINC) 8 - 35 U/L ALT/SGPT 16 LAB ANION GAP(LOINC) 10 - 20 mmol/L ANION GAP 13 LAB AGE(LOINC) years AGE 67 LAB eGFR(LOINC) 60 - 999 ML/MINUTE eGFR >60 LAB eGFR(AA)(LOINC) 60 - 999 ML/MINUTE eGFR(AA) >60 Result Comment: ACCORDING TO THE NATIONAL KIDNEY DISEASE EDUCATION PROGRAM(NKDE), A NORMAL eGFR IS A VALUE GREATER THAN OR EQUAL TO 60 ML/MIN/1.73 SQ METERS. CHRONIC KIDNEY DISEASE: <60mL/MIN/1.73 SQ METERS KIDNEY FAILURE: <15mL/MIN/1.73 SQ METERS THIS TEST SHOULD ONLY BE USED FOR PATIENTS 18 YEARS OF AGE AND OLDER. Performed By: #### [id number] #### [facility],[address] [place] [address] VITAMIN D, 25 Collected: 04/22/2018 Status: F Source: [facility] 10:37 AM [facility] REPOSITORY TYPE CODE TESTS RESULT OUT OF RANGE REFERENCE UNITS LAB VitD(LOINC) 30.00 - 100 ng/mL VitD 42.17 Result Comment: 25-OHD3 indicates both endogenous production and supplementation. 25-OHD2 is an indicator of exogenous sources, such as diet or supplementation. Therapy is based on measurement of Total 25-OHD, with levels <20 ng/mL indicative of Vitamin D deficiency, while levels between 20 ng/mL and 30 ng/mL suggest insufficiency. Optimal levels are >=30ng/mL. Vitamin D, 25-OH D3 Not Established Vitamin D, 25-OH D2 Not Established Performed By: #### [id number] #### [facility],[address] [place] [address] PARATHYROID INTACT WITH Collected: 04/22/2018 Status: F Source: [facility] CALCIUM [QUEST] 10:37 AM [facility] REPOSITORY TYPE CODE TESTS RESULT OUT OF REFERENCE UNITS RANGE LAB PARATHYROID INTACT WITH CALCIUM [QUEST](LOINC) PARATHYROID INTACT WITH CALCIUM [QUEST] Result Comment: _PARATHYROID HORMONE WITH CALCIUM_ PTH, INTACT AND CALCIUM Reported: 04/25/2018 17:01 Status=F TEST RESULT FLAG RANGE UNITS PARATHYROID 43 14-64 pg/mL 04/25/18.1712.rfl.COMPLETE.AMRR .2731-8 HORMONE,INTACT Interpretive Guide Intact PTH Calcium Normal Parathyroid Normal Normal Hypoparathyroidism Low or Low Normal Low Hyperparathyroidism Primary Normal or High High Secondary High Normal or Low Tertiary High High Non-Parathyroid Hypercalcemia Low or Low Normal High For additional information, please refer to http://education.Athletic Standard/faq/WUX525 (This link is being provided for informational/ educational purposes only.) CALCIUM 9.3 8.6-10.4 mg/dL 04/25/18.1712.rfl.COMPLETE.AMRR .79796-1 Test Performed by [employer] [facility] [place], [facility], [address] [place] [address] Sandoval Lyon M.D., Ph.D., Director of Laboratories , CLIA [id number] Performed By: #### [id number] #### [facility],[address] [place] [address] OPERATIVE REPORT Observed: 12/06/2017 Status: F Source: [place] 1:34 PM [facility] REPOSITORY [facility] Medical Records Department [address] [place] [address] Operative Report 11/28/17 0858 MR#: [id number] Acct: [id number] Name: PARIS SUMMERS Rep #: [id number] : 1950 67 From: Nik Chicas MD PCP: Ellen Osman NP Status: REG CLI Y Location: Problem List (1) Nontoxic multinodular goiter Status: Acute Report of Operation Date of Procedure: 11/28/17 Pre-Operative Diagnosis: E04.2 multinodular goiter Post-Operative Diagnosis: Same Surgery/Procedure Performed:: [id number] ultrasound-guided fine- needle aspiration of left thyroid nodule 1. Ultrasound-guided fine-needle aspiration of right thyroid nodule 2 Type of Anesthesia:: Local Description of Procedure: Patient was placed in the ultrasound unit left side of her neck was ultrasound thyroid lesion was identified I prepped the skin with alcohol injected 1% lidocaine plain under ultrasound guidance I took 3 passes with a 22-gauge needle and immediately gave them to the pathologist. He plated these and looked at him and said we had an adequate number of follicular cells. We then ultrasound the right side of the neck the isthmus lesion on the right side of the neck with the first lesion that I went after. I prepped the skin with alcohol. I injected 1% lidocaine plain. Under ultrasound guidance I took 3 passes with a 22-gauge needle. Gave these to the pathologist on the pathologist gave a quick look and said these were adequate. Right thyroid nodule was then identified the skin was prepped with alcohol. 1% lidocaine plain was injected. Under ultrasound guidance 3 passes with a 22- gauge needle were performed. I gave him to the pathologist who plated them on glass slides and said that we had an adequate number of follicular cells. Sterile dressings were applied and the patient tolerated the procedure well. I will see the patient back in 1 week and we will discuss the pathology report at that time. - Admit VTE Documentation VTE Present on Admission: No VTE Mechan Device Prophylaxis: None VTE Pharm Prophylaxis ordered?: No Reason prophylaxis not ordered:: Treatment Not Indicated 12/06/17 1334 <Electronically signed by Nik Chicas MD> Date Nik Chicas MD CC: Ellen Osman [employer]; Nik Chicas MD Signed SURGERY VISIT REPORT Observed: 12/05/2017 Status: F Source: [place] 2:30 PM [facility] Surgical [place] [address] [address] [facility] [place] [facility] [address] [place] [address] OFFICE VISIT Date of Service: 12/05/17 MR#: [id number] Acct: [id number] Name: PARIS SUMMERS Rep #: [id number] : 1950 Provider: Nik Chicas MD Age/Sex: 67/F Location: [facility] Status: Signed Intake Intake Visit Reasons: F/U THYROID BX/WCH 11/28/2017 Chief Complaint: thyroid FNA 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: No Is patient in pain?: No Allergies Penicillins [PCN] Adverse Reaction (Verified 12/05/17 13:41) Hives Medications Aspirin [Aspirin, Baby] 81 mg PO DAILY@0800 07/18/15 [History Confirmed 12/05/17] Atorvastatin Calcium [Lipitor] 80 mg PO QHS 07/18/15 [History Confirmed 12/05/17] Calcitriol [Calcitriol] 0.25 mcg PO DAILY 07/18/15 [History Confirmed 12/05/17] Multivitamins,Therapeutic [Multivitamin] 1 mg PO DAILY 07/18/15 [History Confirmed 12/05/17] [place]-3 Fatty Acids/Fish Oil [Fish Oil 1,000 mg Capsule] 1 ea PO QHS 07/18/15 [History Confirmed 12/05/17] [place]-3 Fatty Acids/Fish Oil [Fish Oil 1,000 mg Softgel] 2 ea PO DAILY 07/18/15 [History Confirmed 12/05/17] Oxybutynin Chloride [Ditropan Xl] 15 mg PO DAILY 07/18/15 [History Confirmed 12/05/17] Is last menstrual period known: No Post menopausal: Yes Patient : No PFSH Surgical History History of parathyroid surgery (Acute) S/P thyroid biopsy (Acute) Family History Mother Cancer Pancreas cancer Father CVA (cerebral vascular accident) Social History Smoking Status: Former smoker alcohol intake: never substance use type: does not use HPI HPI HPI: PARIS SUMMERS, is a 67 F who presents to the office today for follow-up from a fine-needle aspiration of both the left and right side of her thyroid glands. Patient underwent a fine-needle aspiration on 11/28/2017 there were 3 areas that I biopsied a left thyroid nodule isthmus nodule in the right thyroid nodule all these came back as benign follicular nodules all of them are adequate for evaluation [...] Problems 1. Multinodular goiter (nontoxic) E04.2 Plan Patient will need to have yearly thyroid [...] Cosigner Signature: Date (if applicable) CC: Ellen Osman [employer] MAMM DIGITAL BILAT Observed: 11/29/2017 Status: F Source: [place] SCREEN 1:35 PM [place] [address] Patient: PARIS SUMMERS Phone#: : 1950 Age: 67 Gender: F Pt. Type: Out Account: [id number] Location: Ordering: ELLEN OSMAN Exam Date: 11/29/2017/13:07 Family Phys: Charge Code: 229879 Physician: [place] Order #: [id number] DLP Dose#: PROCEDURE: MAMM BILAT DIGITAL SCREENING WITH CAD COMPARISON: [facility] [place] [facility], BILAT SCREENING, 11/26/2016, 11:51. INDICATIONS: Screening BREAST COMPOSITION: Scattered fibroglandular densities (25-50% glandular). FINDINGS: DIAGNOSTIC CATEGORY 1--NEGATIVE ASSESSMENT. RIGHT BREAST: No significant suspicious finding. No significant change has occurred. LEFT BREAST: No significant suspicious finding. No significant change has occurred. RECOMMENDATIONS: ROUTINE MAMMOGRAM AND CLINICAL EVALUATION. PLEASE NOTE: A NORMAL MAMMOGRAM DOES NOT EXCLUDE THE POSSIBILITY OF BREAST CANCER. A CLINICALLY SUSPICIOUS PALPABLE LUMP SHOULD BE BIOPSIED. THIS FACILITY UTILIZES A REMINDER SYSTEM TO ENSURE THAT ALL PATIENTS RECEIVE REMINDER LETTERS FOR APPOINTMENTS. THIS INCLUDES REMINDERS FOR ROUTINE MAMMOGRAMS, DIAGNOSITC MAMMOGRAMS, OR OTHER BREAST IMAGING INTERVENTIONS WHEN APPROPRIATE. THIS PATIENT WILL BE PLACED IN THE APPROPRIATE REMINDER SYSTEM. Dictated by: Sarita Davidson MD on 11/29/2017 at 14:14 Approved by: Sarita Davidson MD on 11/29/2017 at 14:14 US THYROID BIOPSY Observed: 11/28/2017 Status: F Source: [place] 8:06 AM [facility] Imaging Services [address] [place] [address] US Thyroid Biopsy MR#: [id number] Acct: [id number] Name: PARIS SUMMERS R Rep #: [id number] : 1950 F 67 From: Tariq Deluna MD PCP: Ellen Osman NP Status: REG CLI Study: US Thyroid Biopsy Date of Exam: 11/28/17 Exam# [id number] Ordering Dr: Nik Chicas MD CLINICAL HISTORY: Female, 67 years old. Thyroid nodules. PROCEDURE: BIOPSY - biopsy of the left and right thyroid nodules as well as the nodular density in the isthmus. Under direct sonographic guidance, the surgeon performed a 22-gauge biopsy of the 1.3 cm x 1.2 cm x 0.8 cm nodule in the left lobe of the thyroid as well as of the 1.3 cm x 0.9 cm x 1.1 cm nodule in the lower right lobe of the thyroid. Aspiration biopsy of the isthmus nodule measuring 1.5 cm x 1.4 cm x 0.4 cm was obtained as well. US/US Thyroid Biopsy IMPRESSION: Successful ultrasound-guided biopsy of the thyroid nodules. Electronically Signed: Tariq Deluna MD at 10:07 EST Tel [phone], Service support , CC: Ellen Osman NP; Nik Chicas MD Tour Narrator: Signed FLUID/WASHING Observed: 11/28/2017 Status: F Source: [place] 12:00 AM [facility] REPOSITORY Patient: PARIS SUMMERS : 1950 (67/F) Acct Num: [id number] Phys: Aviva WISE,Nik Unit Num: [id number] Loc: US Specimen: [id number] Received: 11/28/17 - 1016 Spec Type: Fluid TISSUES TISSUES: A. Thyroid gland, NOS B. Thyroid isthmus C. Thyroid gland, NOS COMMENT The specimen is evaluated at the time of thyroid FNA by Dr. Mercado. Immediate Evaluation = A. Follicular cells present. B. Follicular cells present. C. Follicular cells present. Case has been reviewed in consultation with Dr. Loya who concurs with the above diagnosis. IDC:SJ CYTOLOGY GROSS A - Received is 0.5 ml of reddish fluid labeled with the patient's name, and designated left thyroid. Eight imprints and six paps [...] preparation. Submitted for cytology study. C - Received is 0.2 ml of reddish fluid labeled with the patient's name, and designated right thyroid. Six imprints and four paps are made from the submitted fluid and the rest is added to CytoLyt for cell block preparation. Submitted for cytology study. / AM:ke 11/28/17 TC:5 CPT: 49272 x3, 29075 x3 CYTOLOGY STUDY Slides are reviewed. DIAGNOSIS [...] evaluation. Negative, consistent with benign follicular nodule. AM:ke 11/29/17 HEADER OPERATION: Ultrasound-guided thyroid biopsy PRE-OP DIAGNOSIS: Multinodular goiter E04.2 TISSUE SUBMITTED: A Left thyroid, B Isthmus, C Right thyroid Signed Lucho Jess 11/29/17 <signature on file> Performed By: #### PFLU #### [facility] [address] [place], [place], [address] SURGERY VISIT REPORT Observed: 11/21/2017 Status: F Source: MATTIE 8:57 AM [facility] REPOSITORY [facility] [address] [facility] [address] [place], [place] [address] OFFICE VISIT Date of Service: 11/19/17 MR#: [id number] Acct: [id number] Name: PARIS SUMMERS Rep #: [id number] : 1950 Provider: Nik Chicas MD Age/Sex: 67/F Location: [facility] Status: Signed Intake Vital Signs11/19/17 Height 5 ft 7 in 11/19/17 Weight: 200 lb Intake Visit Reasons: THYROID NODULE 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: No Is patient in pain?: No Allergies Penicillins [PCN] Adverse Reaction (Verified 11/19/17 14:01) Hives Medications Aspirin [Aspirin, Baby] 81 mg PO DAILY@0800 07/18/15 [History Confirmed 11/19/17] Atorvastatin Calcium [Lipitor] 80 mg PO QHS 07/18/15 [History Confirmed 11/19/17] Calcitriol [Calcitriol] 0.25 mcg PO DAILY 07/18/15 [History Confirmed 11/19/17] Multivitamins,Therapeutic [Multivitamin] 1 mg PO DAILY 07/18/15 [History Confirmed 11/19/17] [place]-3 Fatty Acids/Fish Oil [Fish Oil 1,000 mg Capsule] 1 ea PO QHS 07/18/15 [History Confirmed 11/19/17] [place]-3 Fatty Acids/Fish Oil [Fish Oil 1,000 mg Softgel] 2 ea PO DAILY 07/18/15 [History Confirmed 11/19/17] Oxybutynin Chloride [Ditropan Xl] 15 mg PO DAILY 07/18/15 [History Confirmed 11/19/17] PFSH Surgical History History of parathyroid surgery (Acute) Family History Mother Cancer Pancreas cancer Father CVA (cerebral vascular accident) Social History Smoking Status: Former smoker alcohol intake: never substance use type: does not use HPI HPI HPI: PARIS SUMMERS, is a 67 F who presents to the office today for for evaluation of multinodular goiter. Patient had a thyroid ultrasound completed at [facility] on 11/14/2017. There was a comparison made [...] surgery but repeat fine-needle aspiration. She now presents with clearly an enlargement on both the right and left sides from 2013. The fine-needle aspiration was done on the left side in 2013. The patient has had parathyroid surgery and has had a cervical incision done already. ROS General General: No weight change, appetite, fatigue, colon cancer, breast cancer or weakness HEENT HEENT: No difficulty swallowing, eye injury, eye surgery, swollen glands or hoarseness Endo Endocrine: No thyroid disease, [...] breat with exertion or chest pain Psych Psychiatric: No depression, anxiety or hearing voices Resp Respiratory: No shortness of breath, No sleep apnea, No cough, No COPD, No asthma, No emphysema, No wheezing Gastro Gastrointestinal: No abdominal pain, No nausea or vomiting, No diarrhea, No constipation, No blood in stool, No acid reflux, No hemorrhoids, No ulcers, No gallbladder problem, No black,tarry stools Micheal Hematologic: No blood thinners, No blood disorders, No bleeding, No anemia, [...] person, oriented to place, oriented to time [facility] Head: normocephalic, atraumatic Ears: external ears normal Mouth: moist mucous membranes Other: Thyroid Exam: No hard nodules are felt bilaterally. There is no lymphadenopathy bilaterally. She has a well-healed cervical incision. Eyes Sclera: sclerae normal Pupils: normal by confrontation Neck Neck: no lymphadenopathy noted Neck mass: No Thyroid: symmetrical, thyroid normal Chest Chest palpation AND inspection: normal inspection of the chest Breast Palpation: No nipple discharge Resp Effort AND Inspection: normal respiratory effort Auscultation: clear to auscultation bilaterally Percussion: percussion normal Cardio Rate: regular rate Rhythm: regular rhythm Heart Sounds: murmur GI Palpation: soft, no masses, no hepatosplenomegaly, nontender Rectal Exam: other Other: Rectal exam deferred. Extrem General: no clubbing, cyanosis or edema, normal to inspection Assessment AND Plan Problems 1. Multinodular goiter (nontoxic) E04.2 Plan Even though the comparison was made from last years ultrasound of this years ultrasound I believe it is clear that the [...] her the opportunity go back up to [place] for another evaluation to see if they wanted to do a fine-needle aspiration. If the fine-needle aspiration comes back and shows atypical cells she will certainly have to go back up to [place] at that time. The difficult thing I have here is that I have done a fine-needle aspiration which showed atypical cells and recommended that she have surgery once. I sent her to irreparable surgeon who decided to repeat the fine-needle aspiration and got a different result. I still do not think that you can guarantee which fine-needle aspiration is correct. And I am still recommending that she have surgery based upon the last fine-needle aspiration that I performed. We discussed the risks and benefits of the planned procedure. I have informed the patient that complications can occur including failure to complete the procedure. The patient had the opportunity to ask questions concerning the planned procedure. My staff has also explained the procedure to the patient in understandable terms and has given the patient printed material concerning the procedure. The patient freely consents to the procedure. Coding Level of Care Code Off vis,new,level 3 Diagnoses Multinodular goiter (nontoxic) E04.2 11/21/17 0857 <Electronically signed by Nik Chicas MD> Date Nik Chicas MD Cosigner Signature: Date (if applicable) CC: Ellen Osman NP THYROID Observed: 11/14/2017 Status: F Source: [place] 1:01 PM [facility] REPOSITORY [facility] Imaging Services [address] [place] [address] Thyroid MR#: [id number] Acct: [id number] Name: PARIS SUMMERS Rep #: [id number] : 1950 F 67 From: Brandon Cleveland MD PCP: Ellen Osman NP Status: REG CLI Study: Thyroid Date of Exam: 11/14/17 Exam# [id number] Ordering Dr: Ellen Osman STUDY: THYROID ULTRASOUND REASON FOR EXAM: Female, 67 years old. Nodules TECHNIQUE: Ultrasound evaluation of the thyroid was performed with real-time and static barboza-scale imaging. COMPARISON: November 29, 2016 FINDINGS: RIGHT LOBE: The right lobe of the thyroid gland measures 4.7 x 1.4 x 1.4 cm. There is a heterogeneous echotexture. Multiple nodules. Largest is 12 x 9 x 9MM. The lesion is solid with regular margins and intra- nodular doppler flow. LEFT LOBE: [...] 5 mm. Nodule near the left isthmus measures 5 x 6 x 4 mm. US/Thyroid IMPRESSION: Multiple bilateral thyroid nodules. Stable right thyroid nodules. The nodule in the left thyroid lobe appear to have enlarged. Electronically Signed: Brandon Cleveland MD at 17:59 EST , Service support , CC: Ellen Osman NP; Dr Krishnamurthy Tour Narrator: Signed ALLERGIES ALLERGIES DATE TYPE / CODE NAME / CODE REACTION SEVERITY SOURCE 12/05/2017 Drug Penicillins/[id number] Hives Unknown Mattie Allergy/416 0476(RXNORM) [facility] 696231([facility] ED CT) Repository Drug PENICILLINS Moderate Wade Pomerene Allergy/416 (CLASS)/50533189(R (Severity [facility] 716375([facility] XNORM) Modifier) [facility] ED CT) (Qualifier Repository Value) Drug AMOXICILLIN/586820 Moderate Wade Pomerene Allergy/416 76(RXNORM) ([facility] 141698(SNOM Modifier) [facility] ED CT) (Qualifier Repository Value) ENCOUNTERS ENCOUNTERS ADMIT/DISCHARGE ACCOUNT ADMITTING ENCOUNTER LOCATION SOURCE NUMBER CLASS 10/31/2018 [id number] Ambulatory Mattie [facility] 4 [facility] ing:US Repository 10/27/2018 [id number] Ambulatory Building:[facility] Practices Repository 10/20/2018/ [id number] ELLEN OSMAN Ambulatory Wade Pome[place] 9 [facility] Repository 04/22/2018/ [id number] ELLEN OSMAN Ambulatory Wade [place] 8 [facility] Repository 12/05/2017/ [id number] Ambulatory BMSBuilding:B [facility] 8 6 [facility] Repository 11/29/2017/ [id number] ELLEN OSMAN [facility] Repository 11/28/2017 [id number] Ambulatory Mattie [facility] 6 [facility] ing: Repository 11/28/2017 [id number] Ambulatory BMSBuilding:B [facility] 6 [facility] Repository 11/19/2017/ [id number] Ambulatory BMSBuilding:B Mattie 8 3 [facility] Repository 11/14/2017 [id number] Ambulatory Mattie [facility] 8 [facility] PAYERS PAYERS ENCOUNTER GUARANTOR PAYER SUBSCRIBER SOURCE 10/31/2018 PARIS R Primary PARIS R Harmony [id number] TR Insurance:MEDICARE MELLORDOB: [address], PART A BPolicy Number: [id number] [address]Zwp: [id number] Repository Date:2018-10-28 () 10/31/2018 Secondary PARIS R Mattie Insurance:AULTCAREPoli MELLORDOB: [facility] cy Number: [id number] Hospital [id number] Repository Date:5225-71-54[address], [place] [address]GI: 10/31/2018 Tertiary NOT GIVENUNK Mattie Insurance:SELF PAY [facility] Number: Effective Repository Date:2018-10-28 10/27/2018 Paris R Primary Paris R OHIP Practices MellorDOB: Insurance:MedicarePoli MellorDOB: Repository [id number] cy Number: [id number] [id number] [address] [place] [address], Date:6492-96-36Ooms[address] [address]Xfj: Name:[facility] [address]Fea: [address]Lgtlmhkt, [place] ()Tel: [phone]: [phone] 10/27/2018 Secondary Paris R OHIP Practices Insurance:AultcarePoli MellorDOB: Repository cy Number: [id number] [address] Date:1953-14-[address], Name:[facility] [address]Dba: [address] [place] [address] ~(6 [id number]: [phone] 10/20/2018 PARIS R Primary Insurance:500 PARIS R Wade Pomerene MELLORDOB: MEDICARE MELLORDOB: [facility] [id number] [facility] TR Number: 3 [facility] Repository [address] [place] [id number] Date:Plan Name:[facility] [id number]: () 10/20/2018 Secondary PARIS R Wade Pomerene Insurance:AULTCARE MELLORDOB: [facility] [id number] Hospital Number: [address] Repository [id number], Date:Plan Name:[facility] [id number] 04/22/2018 PARIS R Primary Insurance:500 PARIS R Wade Pomerene MELLORDOB: MEDICARE MELLORDOB: [facility] [id number] [place] [address] [id number] [facility] TR Number: 3 [facility] Repository [address] [place] [id number] Date:Plan Name: [id number]: () 04/22/2018 Secondary PARIS R Wade Pomerene Insurance:AULTCARE MELLORDOB: [facility] [id number] Hospital Number: [address] Repository [id number] [place], Date:Plan Name:[facility] [id number] 12/05/2017 PAIRS R Primary PARIS R Mattie [id number] TR Insurance:MEDICARE MELLORDOB: [address], PART A BPolicy Number: [id number] [address]Thn: [id number] Repository Date:2017-11-29 () 12/05/2017 Secondary PARIS R Mattie Insurance:AULTCAREPoli MELLORDOB: Community cy Number: [id number] Hospital [id number] Repository Date:5971-02-24OY [place] [id number]: 12/05/2017 Tertiary NOT GIVENUNK [place] Insurance:SELF PAY [facility] Hospital Number: Effective Repository Date:2017-11-29 11/29/2017 PARIS R Primary Insurance:500 PARIS Bennett MELLORDOB: MEDICARE MELLORDOB: [facility] [id number] [place] [address] [id number] Hospital TR Number: [id number] Date:Plan Name: [id number]: () 11/29/2017 Secondary PARIS R Wade [place] Insurance:AULTCARE MELLORDOB: [facility] [id number] Hospital Number: 3 [facility] [id number] [place], Date:Plan Name:[facility] [id number] 11/28/2017 PARIS R Primary PARIS R Mattie [id number] TR Insurance:MEDICARE MELLORDOB: [address], PART A BPolicy Number: [id number] [facility] [address]Rzu: [id number] Repository Date:2017-11-19 () 11/28/2017 Secondary PARIS R Mattie Insurance:AULTCAREPoli MELLORDOB: Community cy Number: [id number] Hospital [id number] Repository Date:7681-76-66[address] [address]GK: 11/28/2017 Tertiary NOT GIVENUNK Mattie Insurance:SELF PAY [facility] Number: Effective Repository Date:2017-11-19 11/28/2017 PARIS R Primary PARIS R Mattie [id number] TR Insurance:MEDICARE MELLORDOB: [address], PART A BPolicy Number: [id number] Hospital [address]Sps: [id number] Repository Date:2017-11-19 () 11/28/2017 Secondary PARIS R [place] Insurance:AULTCAREPoli MELLORDOB: Community cy Number: [id number] Hospital [id number] Repository Date:4384-69-90ZR [address], [place] [address]UN: 11/28/2017 Tertiary NOT GIVENUNK Mattie Insurance:SELF PAY [facility] Number: Effective Repository Date:2017-11-28 11/19/2017 Paris R Primary Paris R Mattie [id number] Insurance:MEDICARE MellorDOB: Community [facility] [address] PART A BPolicy Number: [id number] [id number] [place] [address]Knr: Date:2017-11-18 () 11/19/2017 Secondary [place] R [place] Insurance:AULTCAREPoli MellorDOB: Community cy Number: [id number] Hospital [id number] Repository Date:7213-07-88KV [address] [place] [address]CR: 11/19/2017 Tertiary NOT GIVENUNK [place] Insurance:SELF PAY [facility] Number: Effective Repository Date:2017-11-18 11/14/2017 Paris R Primary Paris R Mattie [id number] Insurance:MEDICARE MellorDOB: [facility] [address] PART A BPolicy Number: [id number], [id number] Repository [place] [address]Olz: Date:2017-10-29 () 11/14/2017 Secondary [place] R [place] Insurance:AULTCAREPoli MellorDOB: Community Number: [id number] Hospital [id number] Repository Date:1223-20-34MB[address] [address]WA: 11/14/2017 Tertiary NOT GIVENUNK Mattie Insurance:SELF PAY [facility] Number: Effective Repository Date:2017-10-29
--- OUTSIDE RECORDS SUMMARY | 2019-01-05 04:38 | XMS RPT_ITS | Continuity of Care Document ---
:1950 Author Organization [facility] Address [address] [facility] [address] [place] [address] Phone Care Team Providers Name Role Phone [...] WITH ABNORMAL FINDING Z 00.01Will work with mass spectrometry manager < will check with mass spectrometry manager on that, worked on it luciana 2016Getting [...] exercise.Pt does not have durable power of admitted attorneys and living will. Status: Active Fatigue (R53.83, 780.79) Status: Active Goiter (E04.9, 240.9) Comments: multinodular. saw Wally(moved)Daron [facility] endocrine, 2 years ago.US thyroid 10/29: Status: Active Hematuria (R31.9, 599.70) Comments: sees Cheng, had cystosocpy, follow ua to return prn Status: Active Hypercholesterolemia (E78.00, 272.0) Comments: reveiwed with patient recent tests ldl goodTG 92(was 88 09/27)TC 169(was 149)HDL 53( was 44LDL 98( was 85)Diet and exercise Status: Active Hyperparathyroidism, primary (E21.0, 252.01) Comments: Dr. jonas victor, at [facility]. calcium levels good. reviewed with patient [...] does not want [facility], will send to [place]. Status: Active Unspecified urinary incontinence (R32, 788.30) [...] Quantity: 6 {Tablet} Refills: 0 Ordered:22-Sep-2013 Long SPINNER OPERATOR, Riddhi L Start : 17-Aug-2013 End : 22-Sep-2013 Inactive ZOSTAVAX, 43149NQE/0.65ML (Subcutaneous Solution Reconstituted) 1 For Solution once [...] 16-Mar-2013 End : 16-Mar-2013 Discontinued Vitamin D3 01207 UNIT Oral Tablet 1 (one) Tablet weekly [...] Colonoscopy Completed Comments: [facility] Completed Comments: 07-25-15 Bladder tumor-benign Dr. Pabon parathyriodectomy 2010 Completed Date Value Details 06-Dec-2017 Operative Report Result: Comments: See Note; NOTES: [facility] Medical Records Department [address] [place] [address] Operative Report 11/28/17 0858 MR#: [id number] Acct: [id number] Name: PARIS LEIVA Rep #: [id number] : 1950 67 From: Nik Chicas MD PCP: Ellen Fonseca NP Status: REG CLI Y Location: [place] Problem List (1) Nontoxic multinodular goiter Status: Acute Report of Operation Date of Procedure: 11/28/17 Pre-Operative Diagnosis: E04.2 multinodular goiter Post- Operative Diagnosis: Same Surgery/Procedure Performed:: 50160 ultrasound-guided fine-needle aspiration of left thyroid nod [...] Date Nik Chicas MD CC: Ellen Fonseca CRANE HELPER; Nik Chicas MD Signed 05-Dec-2017 Surgery Visit Report Result: Comments: See Note; NOTES: [facility] [address] [place] [address] [place] [address] OFFICE VISIT Date of Service: 12/05/17 MR#: [id number] Acct: [id number] Name: PARIS BENAVIDES Rep #: [id number] : 1950 Provider: Nik Chicas MD Age/Sex: 67/F [place] [facility] Status: Signed Intake Intake Visit Reasons: F/U THYROID BX/WCH 11/28/2017 Chief Complaint: thyr oid FNA Platen Grinder Required: No Is patient in pain?: No Allergies Penicillins [PCN] Adverse Reaction (Verified 12/05/17 13:41) Hives Medications Aspirin [Aspirin, Baby] 81 mg PO DAILY@0800 07/18/15 [History Confirmed 12/05/17] Atorvastatin Calcium [Lipitor] 80 mg PO QHS 07/18/15 [History Confirmed 12/05/17] Calcitriol [Calcitriol] 0.25 mcg PO DAILY 07/18/15 [History Confirmed 12/05/17] Multivitam ins,Therapeutic [Multivitamin] 1 mg PO DAILY 07/18/15 [History Confirmed 12/05/17] Hamel-3 Fatty Acids/Fish Oil [Fish Oil 1,000 mg Capsule] 1 ea PO QHS 07/18/15 [History Confirmed 12/05/17] Hamel-3 Fatt y Acids/Fish Oil [Fish Oil 1,000 [...] Thyroid Biopsy Result: Comments: See Note; NOTES: [facility] Imaging Services [address] [place] [address] [place] Thyroid Biopsy MR#: [id number] Acct: [id number] Name: PARIS LEIVA Rep #: [id number] OB: 1950 F 67 From: Tariq Deluna MD PCP: Ellen Fonseca NP Status: REG CLI Study: US Thyroid Biopsy Date of Exam: 11/28/17 Exam# [id number] Ordering Dr: Nik Chicas MD CLINICAL HISTORY: [...] Tariq Deluna MD at 10:07 EST Tel [phone], Service support , CC: Ellen Fonseca NP; Nik Chicas MD Drafter Civil: Signed 21-Nov-2017 Surgery Visit Report Result: Comments: See Note; NOTES: [facility] [address] [place] [address] [address] [place] [address] OFFICE VISIT Date of Service: 11/19/17 MR#: [id number] Acct: [id number] Name: PARIS BENAVIDES Rep #: [id number] : 1950 Provider: Nik Chicas MD Age/Sex: 67/F Location: [facility] Status: Signed Intake Vital Signs11/19/17 Height 5 ft 7 in 11/19/17 Weight: 200 lb Intake Visi t Reasons: THYROID NODULE Platen Grinder Required: No Is patient in pain?: No Allergies Penicillins [PCN] Adverse Reaction (Verified 11/19/17 14:01) Hives Medications Aspirin [Aspirin, Baby] 81 mg PO DAILY@0800 07/18/15 [History Confirmed 11/19/17] Atorvastatin Calcium [Lipitor] 80 mg PO QHS 07/18/15 [History Confirmed 11/19/17] Calcitriol [Calcitriol] 0.25 mcg PO DAILY 07/18/15 [History Confirmed 0 11/19/17] Multivitamins,Therapeutic [Multivitamin] 1 mg PO DAILY 07/18/15 [History Confirmed 11/19/17] Hamel-3 Fatty Acids/Fish Oil [Fish Oil 1,000 mg Capsule] 1 ea PO QHS 07/18/15 [History Confirmed 03/31] Hamel-3 Fatty Acids/Fish Oil [Fish Oil 1,000 mg [...] Patient had a thyroid ultrasound completed at [facility] on 11/14/2017. There was a comparison [...] was in 2013 up to the [place] at [facility] and it was negative. Prior to [...] person, oriented to place, oriented to time [facility] Head: normocephalic , atraumatic Ears: external ears [...] her the opportunity go back up to [place] for another evaluation to see if they wanted to do a fine-needle aspiration. If the fine-needle aspiration comes back and shows atypical cells she will certainly have to go back up to [place] at that time. The difficult thing I [...] 14-Nov-2017 Thyroid Result: Comments: See Note; NOTES: [facility] Imaging Services [address] [place] [address] Thyroid MR#: [id number] Acct: [id number] Name: PARIS LEIVA Rep #: [id number] : 1949 F 67 From: Brandon Cleveland MD PCP: Ellen Fonseca NP Status: REG CLI Study: Thyroid Date of Exam: 11/14/17 Exam# [id number] Ordering Dr: Ellen Fonseca STUDY: THYROID ULTRASOUND [...] , Service support , CC: Ellen Fonseca CRANE HELPER; Dr Krishnamurthy Drafter Civil: Signed 29-Jan-2017 Dexa Bone Density Study () Result: Comments: See Note; NOTES: [facility] Imaging Services [address] [place] [address] Verdana 4d Dexa Bone Density Study () MR#: [id number] Acct: [id number] Name: SHANTAL LEIVA R Rep #: [id number] : 1950 F 66 From: Tariq Deluna MD PCP: Ellen Fonseca Status: [facility] CL Study: Dexa Bone Density Study () Date of Exam: 01/29/17 Exam# [id number] Ordering Dr: Solange Fonseca STUDY: DUAL ENERGY [...] Tariq Deluna MD at 20:08 EDT Tel [phone], Service support , CC: Ellen Fonseca Drafter Civil: Signed 29-Nov-2016 Thyroid Result: Comments: See Note; NOTES: [facility] Imaging Services [address] [place] [address] Verdana 4d Thyroid MR#: [id number] Acct: [id number] Name: PARIS LEIVA Rep #: [id number] : 1950 F 66 From: Brandon Cleveland MD PCP: Ellen Fonseca Status: REG CLI Study: Thyroid Date of Exam: 11/29/16 Exam# [id number] Ordering Dr: Ellen Fonseca STUDY: THYROID ULTRASOUND [...] more hypervascular than the prior study. The [place] Association of Clinical Orthodontist Vice President (AACE) in collabora tion with the Associazione [...] of Thyroid Nodules. Jd Gabriel MD, FACE, [facility] [place]. Endocr Prac t. 2012; 18(4): 596-599. Electronically Signed: Brandon Cleveland MD at 22:56 EST , Service support [phone], CC: Ellen Fonseca Drafter Civil: Signed 14-Nov-2015 Thyroid Result: Comments: See Note; NOTES: [facility] Imaging Services [address] [place] [address] Verdana 4d Thyroid MR#: [id number] Acct: [id number] Name: PARIS LEIVA Rep #: [id number] : 1950 F 65 From: Tariq Deluna MD PCP: Alessandra Hudson MD Status: REG CLI Study: Thyroid Date of Exam: 11/14/15 Exam# [id number] Ordering Dr: Alessandra Hudson MD STUDY: THY [...] Tariq Deluna MD at 14:52 EST Tel [phone], Service peterson pport [phone], CC: Alessandra Hudson MD Drafter Civil: Signed 14-Nov-2015 Thyroid Result: Comments: See Note; NOTES: [facility] Imaging Services [address] [place] [address] Verdana 4d Thyroid MR#: [id number] Acct: [id number] Name: PARIS LEIVA Rep #: [id number] : 1950 F 65 From: Tariq Deluna MD PCP: Alessandra Hudson MD Status: REG CLI Study: Thyroid Date of Exam: 11/14/15 Exam# [id number] Ordering Dr: Alessandra Hudson MD ADDENDUM b y Tariq Deluna MD on 11/16/15 at 1250 ADDENDUM This is an addendum report. Prior examin ation was a targeted ultrasound-guided biopsy of the left thyroid. The visualized nodules are unchanged. Electronically Signed: Tariq Deluna MD at 12:50 EST Tel [phone], Servi ce support [phone], 11/16/15 1250 Date cc: Alessandra Hudson MD [...] Tariq Deluna MD at 14:52 EST Tel [phone], Service support [phone], CC: Alessandra Hudson MD Drafter Civil: Signed 25-Jul-2015 Operative Report Result: Comments: See Note; NOTES: [facility] Medical Records Department [address] [place] [address] Operative Report MR#: [id number] Acct: [id number] Name: PARIS LEIVA Angelina p #: [id number] : 1950 65 From: Jamaal Anand MD PCP: Alessandra Hudson MD Status: [facility] DATE OF SERVICE: 07/22/2015 DATE OF SERVICE: [...] I went into the bladder with a 21-Sammarinese rigid cystourethroscope. I did a pancystoscopy with [...] electrocautery. Once this was done, the pa tyoa's bladder was drained. There was no bleeding. She was taken back to PACU in good condition. She will follow up with me in the office in about 2 weeks. Jamaal Anand MD T: INOCENCIO J OB: [id number] 07/25/15 0924 <Electronically signed by Jamaal Anand MD> Date Jamaal Anand MD Cosigner Signature (If Indicated): Date CC: Alessandra Hudson MD; Jamaal Anand MD Date Dictated: 07/22/15 1037 Date Transcribed: 07/22/15 1037 Drafter Civil: Signed 22-Jul-2015 Discharge Instruction Result: Comments: See Note; NOTES: [facility] Medical Records Department [address] [place] [address] Instructions for Home/Discharge Instructions 07/22/15 1034 MR#: [id number] ct: [id number] Name: PARIS LEIVA Rep #: [id number] : 1950 65 From: Jamaal Anand MD PCP: Alessandra Hudson MD Status: REG [facility] Discharge Diet: No Restrictions, Light diet - advance as to lerated Discharge Activity: Return to Normal Activity, May Not Drive - for 2 days. Return to work on:: 07/25/15 May shower in (days): 1 Additional Activity Instructions:: If you have any problems ca ll [phone] and ask for your doctor to be [...] Multivitamins,Therapeutic [Multivitamin] 1 mg PO DAILY 07/18/15 Hamel-3 Fatty Acids/Fish Oil [Fish Oil 1,000 mg Capsule] 1 each PO QHS 1 Hamel-3 Fatty Acids/Fish Oil [Fish Oil 1,000 mg Softgel] 2 each PO DAILY 07/18/15 Oxybutynin Chloride [Ditropan Xl] 15 mg PO DAILY 07/18/15 Please Follow Up With: Jamaal Anand When: in 2 weeks, please call to make an appointment. 07/22/15 1035 <Electronically signed by Jamaal Anand MD> Date Jamaal Anand MD CC: Alessandra Hudson MD 22-Jul-2015 Operative Report Result: Comments: See Note; NOTES: [facility] Medical Records Department [address] [place] [address] Operative Report 07/22/15 1032 MR#: [id number] Acct: [id number] Name: PARIS GUAJARDO R Rep #: [id number] : 1950 65 From: Jamaal Anand MD PCP: Alessandra Hudson MD Status: REG SDC Y Location: [place] [address] Report of Operation Date of Procedure: 07/22/15 [...] W/WO Contrast Result: Comments: See Note; NOTES: [facility] Imaging Services [address] [place] [address] CAT Scan Report MR#: [id number] Acct: [id number] Name: PARIS LEIVA Rep #: [id number] : 1950 F 64 From: Tariq Deluna MD PCP: Alessandra Hudson MD Status: REG CLI Study: Abdomen/Pelvis W/WO Contrast Date of Exam: 06/08/15 Exam# [id number] Ordering Dr: Jamaal Anand MD STUDY: CT [...] Tariq Deluna MD at 15:42 EDT Tel [phone], Se rvice support [phone], CC: Alessandra Hudson MD; Jamaal Anand MD Drafter Civil: Signed 27-Jan-2015 Dexa Bone Density Study (HP) Result: Comments: See Note; NOTES: [facility] Imaging Services [address] [place] [address] Bone Density Report MR#: [id number] Acct: [id number] Name: PARIS LEIVA Rep #: [id number] : 1950 F 64 From: Tariq Deluna MD PCP: Alessandra Hudson MD Status: REG CLI Study: Dexa Bone Density Study (HP) Date of Exam: 01/27/15 Exam# [id number] Ordering Dr: Alessandra Hudson MD STUDY: DUAL [...] Ramos Deluna MD at 16:13 EDT Tel [phone], Service support [phone], CC: Alessandra Hudson MD Drafter Civil: Signed Immunization Name Dates Details Influenza, split [...] smoker Vital Signs Date Test Result Details 61-Mfv-021820:34 Temperature 97.7 f Comments: Method: Temporal Pulse [...] kg/m2 Body Surface Area Calculated 2.05 m2 46-Imy-451202:26 Temperature 97.6 f Pulse 60 /min Comments: [...] kg/m2 Body Surface Area Calculated 2.04 m2 63-Ane-397142:18 Temperature 97.9 f Pulse 64 /min Comments: [...] kg/m2 Body Surface Area Calculated 2.02 m2 85-Ivr-859046:46 Weight 199 lb Height 67 in Body [...] Description Value Details :27 HgA1C , Office (80432) HgA1C , Office 5.7 % (Normal) Range: 4.6 - 7.1 :27 Blood Glucose , Office (92158) Blood Glucose , Office 96 (Normal) :00 Fluid/Washing See Note (Normal) Comments: [facility] [address] [place], [address] Comments: Patient: PARIS LEIVA : 1950 (67/) Acct Num: [id number] Phys: Aviva WISE,Nik Unit Num: [id number] Loc: Specimen: [id number] Received: 11/28/17 - 1016 [...] cytology study. / AM:ke 11/28/17 TC:5 CPT: 66267 x3, 82738 x3 CYTOLOGY STUDY Slides are reviewed. DIAGNOSIS [...] Signed Lucho Jess 11/29/17 <signature on file> 73-Zpt-421045:10 HgA1C , Office (58061) HgA1C , Office 5.6 % (Normal) Range: 4.6 - 7.1 48-Tyq-446027:09 Blood Glucose , Office (62870) Blood Glucose , Office 102 (Normal) 07-Daq-791421:00 HgA1C , Office (23484) Comments: 5.7 HgA1C , Office 5.7 % (Normal) Range: 4.6 - 7.1 16-Spp-897838:23 Blood Glucose , Office (77297) Comments: 106 Blood Glucose , Office 105 (Normal) 53-Xgc-82701:00 CYTOSPIN ON FLUID See Note (Normal) Comments: [facility] [address] [facility] [place], [place], [address] Comments: Patient: PARIS LEIVA : 1950 (66/F) Acct Num: [id number] Phys: Cheng WISE,Jamaal Farias Unit Num: [id number] Loc: LABSPEC Specimen: [id number] Received: 12/06/16 - 142 Spec Ty pe: CYSPIN FL TISSUES TISSUES: CYTOLOGY GROSS Received is 80 ml of yellow, clear fluid labeled with the patient's name and DOBand designated per the requisition as urine. Submitte d for cytology preparation. 12/06/16 TC:5 CPT: 77137 CYTOLOGY STUDY Slides are reviewed. DIAGNOSIS CYTOLOGY Urine for cytology (cytospin): Negative for malignant cells. AM:rg HEADER OPERATION: Not noted PRE-OP DIAGNOSIS: D30.3 TISSUE SUBMITTED: Urine for cytology Signed Lucho Jess 12/07/16 <signat ure on file> 31-Pas-097692:03 URINE OLIVER CULTURE-ALYSA COL Comments: PATIENT NOT FASTINGPERFORMED BY: LabCoSaint Barnabas Behavioral Health CenterXzikhi7754 [facility] [id number] Information: SRC:UC COUNT (53293) Result 1 MUG (Normal) Comments: Mixed urogenital flora1,000 Colonies/mL Urine Culture,Comprehensive Final report (Normal) 99-Jlw-572525:57 Urinalysis, Office (99747) UA - LEUKOCYTE ESTERASE Trace (Normal) UA - NITRITE Negative (Normal) URINE UROBILINGN ALYSA TIMED Normal mg/dL (Normal) UA - PROTEIN Negative mg/dL (Normal) UA - PH 5 (Abnormal) UA - BLOOD Hemolyzed Small (Normal) UA - SPECIFIC GRAVITY 1.020 (Normal) UA - KETONES Negative mg/dL (Normal) UA - BILIRUBIN Negative (Normal) UA - GLUCOSE Negative (Normal) 08-Nds-327113:06 HgA1C , Office (06152) HgA1C , Office 5.6 % (Normal) Range: 4.6 - 7.1 25-Yyo-702625:06 Blood Glucose , Office (30927) Blood Glucose , Office 138 (Normal) 63-Khp-355746:03 HgA1C , Office (18305) HgA1C , Office 5.7 % (Normal) Range: 4.6 - 7.1 :29 HgA1C , Office (04617) HgA1C , Office 5.9 % (Normal) Range: 4.6 - 7.1 :19 BLADDER TUR See Note (Normal) Comments: [facility] [address] [place], [place], [id number] Comments: Patient: PARIS LEIVA : 1950 (65/F) Acct Num: [id number] Phys: Cheng WISE,Erasmo Unit Num: [id number] Loc: [facility] Specimen: [id number] Received: 07/22/15 - 1310 Spec Type : [...] one cassette. / JONA:qi 07/22/15 TC:3 CPT: 83993 HEADER OPERATION: Cysto, bl adder tumor PRE-OP DIAGNOSIS: Bladder tumor TISSUE SUBMITTED: Bladder tumor MICROSCOPIC DESCRIPTION Slides are reviewed. MICROSCOPIC DIAGNOSIS Bladder tumor, biopsy: Fragments of u rothelial mucosa with mild chronic inflammation. Negative for malignancy in the submitted specimen. SJ: 07/25/15 Signed Abram Loya 07/25/15 <signature on file> 40-Izn-280039:10 Serum Creatinine AND GFR Comments: Test performed at:[address] [address] EST GFR - AA 70 mL/min (Normal) EST GFR 58 mL/min (Abnormal) CREAT,SERUM 1.01 mg/dL (Normal) Range: 0.55-1.20 Comments: Please note revised CREATININE reference range zcjasmpxh56/22/2015. 81-Soa-442306:15 Cytology, Body Fluid / CSF Comments: Specimen Source: URINETest performed at:[facility] [address] [place] [id number] CYTOLOGY,BF/CSF SEE PATHOLOGY REPORT Comments: Specimen submitted to Anatomical Pathology Department [facility]. (Normal) 13-Jyk-92798:00 CYTOSPIN ON FLUID See Note (Normal) Comments: Test performed at:[facility] [address] [place] [address] Comments: Patient: PARIS LEIVA : 1950 (64/F) Acct Num: [id number] Phys: Cheng WISE,Erasmo Unit Num: [id number] Loc: LABSPEC Specimen: [id number] Received: 06/06/15 - 1515 Spec T ype: CYSPIN FL TISSUES TISSUES: COMMENT The specimen contains acute inflammatory cells. Clinical correlation is suggested. CULTURE RESULTS No results available. CYTOLOGY G VALERIE Received is 80 ml of dark yellow cloudy fluid designated urine. Submitted for cytology preparation. / 06/07/15 TC:2 CPT: 32138 CYTOLOGY STUDY Slides are reviewed. DIAGNOSIS CYTOLO GY Urine for cytology (cytospin): Negative for malignant cells. AM:ch 06/08/15 HEADER OPERATION: Not noted PRE-OP DIAGNOSIS: Hematuria TISSUE SUBMITTED: Urine cytology Sign ed Lucho Jess 06/08/15 <signature on file> 0-Fkv-182992:00 Urinalysis, Office (73457) UA - LEUKOCYTE ESTERASE Negative (Normal) UA - NITRITE Negative (Normal) URINE UROBILINGN ALYSA TIMED 2 mg/dL (Normal) UA - PROTEIN Negative mg/dL (Normal) UA - PH 5.0 (Normal) UA - BLOOD Non Hemolyzed Moderate (Normal) UA - SPECIFIC GRAVITY 1.030 (Abnormal) UA - KETONES 15 mg/dL (Abnormal) UA - BILIRUBIN Negative (Normal) UA - GLUCOSE Negative (Normal) 4-Uun-645673:10 Blood Glucose , Office (88534) Blood Glucose , Office 129 (Normal) 09-Zqk-512417:36 Pap IG Comments: Source.............Cervical;EndocervicalOther..............Post MenopausalNo. of containers..01 CYTYC Thin Prep VialPATIENT NOT FASTINGPERFORMED BY: =G Lab[address] (Image [id number] BY: Appforma[address] [id number] Guided) Note: PAPSMR (Normal) Comments: The Pap [...] examination at health care facilityGeno Norton Senior International Tax Manager (ASCP) 84-Dcp-121850:36 Thin Comments: Source.............Cervical;EndocervicalOther..............Post MenopausalNo. of containers..01 CYTYC Thin Prep VialPATIENT NOT FASTINGPERFORMED BY: =G LabChatStat[address] [place] [address] 253 Prep Pap [id number] BY: [address]forma[address] [id number] Information: [id number] (95431) Age Gdln ACOG Testing AGE6 (Normal) Comments: <21 or >65 or no age provided 12-Edm-770865:01 HgA1C , Office (84994) HgA1C , Office 5.9 % (Normal) Range: 4.6 - 7.1 09-Hch-798822:01 Blood Glucose , Office (61866) Blood Glucose , Office 99 (Normal) 45-Ewf-366347:51 HgA1C , Office (11750) HgA1C , Office 6.2 % (Normal) Range: 4.6 - 7.1 72-Bxe-764417:08 CALCIFEDIOL (09528) Comments: PATIENT NOT FASTINGPERFORMED BY: LabCo Iybkep5558 [facility] [id number] Information: [id number], [id number] Vitamin D, 25-Hydroxy 23.7 ng/mL (Abnormal) Range: 30.0-100.0 Comments: Vitamin D deficiency has been defined by the [place] ofMedicine and an Endocrine Society practice guideline as alevel of serum 25-OH vitamin D less than 20 ng/mL (1,2).The Endocrine Society went on to further define vitamin Dinsufficiency as a level between 21 and 29 ng/mL (2).1. IOM ([place] of Medicine). 2010. Dietary reference intakes for calcium and D. Mcdaniel [place]: The National AcademEinspect Press.2. Bianca MF, Hermann CARBAJAL, Luis Alberto SCHNEIDER, et al. Evaluation, treatment, and prevention of vitamin D deficiency: an Endocrine Society clinical practice guideline. JCEM. 2010; 96(7):1911-30. :50 HgA1C , Office (36339) HgA1C , Office 5.9 % (Normal) Range: 4.6 - 7.1 :50 Blood Glucose , Office (54857) Blood Glucose , Office 84 (Normal) :21 OLIVER CULTURE-OTHER (85680) Comments: PATIENT NOT FASTINGPERFORMED BY: LabCorewell [facility]6370 [facility] [id number] Information: SRC:THRT [id number] Result 1 RRF (Normal) Comments: Routine respiratory max Upper Respiratory Culture Final report (Normal) :10 HgA1C , Office (85470) HgA1C , Office 5.8 % (Normal) Range: 4.6 - 7.1 :10 Blood Glucose , Office (74719) Blood Glucose , Office 117 (Normal) :32 HgA1C , Office (87039) HgA1C , Office 6.0 % (Normal) Range: 4.6 - 7.1 :32 Blood Glucose , Office (66130) Blood Glucose , Office 141 (Normal) Comments: just ate :59 HgA1C , Office (96899) HgA1C , Office 6.0 % (Normal) Range: 4.6 - 7.1 :59 Blood Glucose , Office (57560) Blood Glucose , Office 125 (Normal) :50 PARATHORMONE (50977) Comments: PATIENT WAS FASTINGPERFORMED BY: SolariaSaint Barnabas Behavioral Health CenterRejddl7630 [facility] [id number] PTH, Intact 39 pg/mL (Normal) Range: 15-65 :50 LIPID PANEL (77061) Comments: PATIENT WAS FASTINGPERFORMED BY: [facility] Hmbelq6601 [facility] [id number] LDL/HDL Ratio 1.5 {ratio_units} (Normal) Range: 0.0-3.2 [...] METABOLIC PANEL, Comments: PATIENT WAS FASTINGPERFORMED BY: SolariaSaint Barnabas Behavior[facility] Health CenterXbraau0030 [facility] [id number] Information: [id number] COMPREHENSIVE (64211) ALT (SGPT) 20 [iU]/L (Normal) Range: 0-40 [...] Glucose, Serum 104 mg/dL (Abnormal) Range: 65-99 88-Liw-178653:08 [facility] [id number] Comments: CYTOLOGY INFORMATION:- CLINICAL INFORMATION: - DATE LMP/MENOPAUSE: MENOPAUSE- COLLECTION VIAL: Thin Prep Vial- 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 [...] was developed and its performancecharacteristics determined by [employer]. It has not beencle ared or approved by the U.S. Food and DrugAdministration. The FDA has determined that such clearanceor approval is not necessary. This test is used for clinicalpurposes. It should not be regarded as inv estigational orfor research. RAYMOND SYED 03/01/11 4312 PAPSMR Comment Comments: The Pap smear is [...] componen (Normal) t) are present.Freida Forman, Senior International Tax Manager (ASCP)This liquid based ThinPrep(R) pap test was screened withthe use of an image guided system. :00 YINKA and PE, Random Urine Comments: PERFORMED BY: [facility] [place] [id number] Gamma Globulin, U 20.4 % (Normal) Immunofixation Result, Urine UPEIP (Normal) Comments: No monoclonality detected.Protein electrophoresis scan will follow via computer, mail, orcourier delivery. M-Homar, % Not Observed % (Normal) Vroel-8-Rytzvkvv, U 21.5 % (Normal) Beta Globulin, U 23.0 % (Normal) Djcsi-3-Qzylualc, U 7.3 % (Normal) Albumin, U 27.8 % (Normal) Protein,Total,Urine 4.1 mg/dL (Normal) Range: 0.0-15.0 :00 Urinalysis, Routine Comments: PERFORMED BY: [employer] [place] [id number] Bilirubin Negative (Normal) Microscopic Examination MICRON (Normal) Comments: Microscopic follows if indicated. Nitrite, Urine Negative (Normal) Urobilinogen,Semi-Qn 0.2 mg/dL (Normal) Range: 0.0-1.9 Glucose Negative (Normal) Ketones Negative (Normal) Occult Blood Negative (Normal) Protein Negative (Normal) WBC Esterase Negative (Normal) Appearance Clear (Normal) pH 7.0 (Normal) Range: 5.0-7.5 Urine-Color Yellow (Normal) Specific Eucha 1.024 (Normal) Range: 1.005-1.030 69-Kqm-827937:35 Calcium, 24Hr Urine Comments: PERFORMED BY: [facility] [facility] [id number] Information: 04/26@8AM 04/27@8AM Calcium, Urine 24hr 210.0 {mg/24_hr} (Normal) Range: 100.0-300.0 Calcium, Urine 21.0 mg/dL (Normal) :25 Blood Glucose , Office (56410) Blood Glucose , 113 (Normal) Office : Calcium, Serum 10.2 mg/dL (Normal) Comments: PERFORMED BY: [facility] [id number] [facility] [id number] Range: 8.6-10.2 :00 Protein Electro, Random Urine Comments: PERFORMED BY: [employer] [id number] [facility] [id number] Gamma Globulin, U 18.9 % (Normal) M-Homar, % Not Observed % (Normal) Please note: SPRCS (Normal) Comments: Protein electrophoresis scan will follow via computer, mail, orcourier delivery. Vwcfn-3-Wlsqmxie, U 6.1 % (Normal) Azivj-0-Mjhpqfbq, U 16.1 % (Normal) Beta Globulin, U 33.4 % (Normal) Albumin, U 25.5 % (Normal) Protein,Total,Urine 7.9 mg/dL (Normal) Range: 0.0-15.0 :00 Protein Electro.,S Comments: PERFORMED BY: [id number] [facility] [id number] A/G Ratio 1.5 (Normal) Range: 0.7-2.0 Globulin, Total 2.8 g/dL (Normal) Range: 2.0-4.5 M-Homar Not Observed g/dL (Normal) Please note: SPRCS (Normal) Comments: Protein electrophoresis scan will follow via computer, mail, orcourier delivery. Rxtul-3-Trundhxv 0.1 g/dL (Normal) Range: 0.1-0.4 Yhowr-2-Croepfms 0.7 g/dL (Normal) Range: 0.4-1.2 Beta Globulin 1.0 g/dL (Normal) Range: 0.6-1.3 Gamma Globulin 0.9 g/dL (Normal) Range: 0.5-1.6 Albumin 4.1 g/dL (Normal) Range: 3.2-5.6 Protein, Total, Serum 6.9 g/dL (Normal) Range: 6.0-8.5 : PTH, Intact 87 pg/mL (Abnormal) Comments: PERFORMED BY: [facility] Tutrsq1794 [facility] [id number] Range: 15-65 6-Gey-913598:12 HgA1C , Office ([id number]) HgA1C , Office 5.8 % (Normal) Range: 4.6 - 7.1 Comments: aw 8-Lcr-477541:55 Thin prep Pap Comments: Source.............Cervical;EndocervicalLMP / Prev Treat...CIL=[id number]. of containers..01 CYTYC Thin Prep VialPATIENT NOT FASTINGClinical Information: ADD [id number] PERFORMED BY: [facility] ([id number]) [address] [id number] . . (Normal) DIAGNOSIS: SPRCS (Normal) Comments: NEGATIVE FOR INTRAEPITHELIAL LESION AND MALIGNANCY.CELLULAR CHANGES ASSOCIATED WITH INFLAMMATION ARE PRESENT.Satisfactory for evaluation. Endocervical and/or squamous metaplasticcells (endocervical com ponent) are present.V72.31 ; Routine gynecological examinationMarissa Del Cid Senior International Tax Manager (ASCP) Note: PAPSMR (Normal) Comments: The Pap [...] Indication: Hypercholesterolemia Planned Observations HEPATITIS C ANTIBODY (75123)Indication: Encounter for hepatitis C virus screening test for high risk patient On: 32-Szu-974297:28 Request LIPID PANEL ([id number])Indication: Hypercholesterolemia On: 98-Pii-251378:36 Request Comments: Oct 2018 CALCIFEDIOL ([id number])Indication: Hyperparathyroidism, primary On: 22-Irf-365986:35 Request Comments: Oct 2018 PARATHORMONE ([id number])Indication: Hyperparathyroidism, primary On: 05-Hyz-192659:35 Request Comments: Oct 2018 CBC & PLATELETS (AUTO) ([id number])Indication: Other abnormal glucose On: 58-Jkr-247526:35 Request Comments: Oct 2018 Metabolic Panel, Comprehensive ([id number])Indication: Other abnormal glucose On: 08-Tlt-751272:35 Request Comments: Oct 2018 CBC & PLATELETS (AUTO) ([id number])Indication: Anemia On: 9-Siy-644954:10 Request CALCIFEDIOL (74613)Indication: Vitamin D deficiency On: 7-Lxt-854594:10 Request PARATHORMONE ([id number])Indication: Hyperparathyroidism, primary On: 7-Dpp-247693:09 Request Metabolic Panel, Comprehensive (98326)Indication: Other abnormal glucose On: 0-Dvj-199936:09 Request PARATHORMONE ([id number])Indication: Hyperparathyroidism, primary On: :19 Request Comments: Oct 2017 PARATHORMONE ([id number])Indication: Hyperparathyroidism, primary On: :19 Request Comments: March 2017 URINALYSIS ([id number])Indication: Hematuria On: :11 Request Comments: March 2017 URINALYSIS (08531)Indication: Hematuria On: :09 Request Comments: Oct 2017 CBC & PLATELETS (AUTO) ([id number])Indication: Hypercholesterolemia On: :08 Request Comments: Oct 2017 CBC & PLATELETS (AUTO) ([id number])Indication: Hypercholesterolemia On: :07 Request Comments: March 2017 CALCIFEDIOL (51612)Indication: Post-menopausal On: :07 Request Comments: oct 2017 CALCIFEDIOL ([id number])Indication: Post-menopausal On: :07 Request Comments: March 2017 Lipid Panel ([id number])Indication: Hypercholesterolemia On: :06 Request Comments: Oct 2017 Metabolic Panel, Comprehensive (60247)Indication: Other abnormal glucose On: :06 Request Comments: Oct 2017 Metabolic Panel, Comprehensive ([id number])Indication: Other abnormal glucose On: :06 Request Comments: March 2017 Lipid Panel ([id number])Indication: Hypercholesterolemia On: :05 Request Comments: March 2017 CALCIUM SERUM ([id number])Indication: Vitamin D deficiency On: 22-Nxd-459416:44 Request CALCIFEDIOL ([id number])Indication: Vitamin D deficiency On: 76-Lgt-889309:44 Request URINALYSIS, W/ MICRO ([id number])Indication: Hematuria On: :25 Request Comments: [facility] PARATHORMONE ([id number])Indication: Hyperparathyroidism, primary On: :25 Request LIPID PANEL ([id number])Indication: Hypercholesterolemia On: :21 Request Comments: 10/29 CBC, PLATELETS & AUT DIFF ([id number])Indication: Goiter On: :20 Request Comments: 10/29 TSH (THYROID STIMULATING HORMONE) ([id number])Indication: Goiter On: 36-Mpq-424514:20 Request Comments: 10/29 VITAMIN B-12 (CYANOCOBALAMIN) (56873)Indication: Fatigue On: 44-Ifg-459479:20 Request Comments: may 2016 RHEUMATOID FACTOR-QUANT (25800)Indication: Fatigue On: 89-Rzh-798503:19 Request Comments: may 2016 Folate (25746)Indication: Fatigue On: :19 Request Comments: may RATE ERYTHROCYTE (93867)Indication: Fatigue On: 66-Uao-611656:18 Request Comments: oct 2015 METABOLIC PANEL, COMPREHENSIVE (97043)Indication: Fatigue On: :18 Request Comments: october CALCIFIDIOL (28056) VIT D 25Indication: Fatigue On: :17 Request CALCIFEDIOL (26033)Indication: Vitamin D deficiency On: 27-Lwh-604779:00 Request Comments: end may CALCIFEDIOL (17931)Indication: Vitamin D deficiency On: 19-Apr-20168:47 Request CALCIFEDIOL (79005)Indication: Hyperparathyroidism, primary On: 4-Jyd-994527:56 Request PARATHORMONE (08703)Indication: Hyperparathyroidism, primary On: 7-Olg-704602:56 Request Lipid Panel (64583)Indication: Hypercholesterolemia On: 9-Ekd-331497:56 Request Metabolic Panel, Comprehensive (63081)Indication: Hypercholesterolemia On: 9-Xyl-558901:56 Request HgA1C , Office (71844)Indication: Other abnormal glucose On: 1-Jqp-780167:11 Request URINALYSIS, W/ MICRO (35020)Indication: Hypercholesterolemia On: 32-Ktk-302249:42 Request METABOLIC PANEL, COMPREHENSIVE (95075)Indication: Hypercholesterolemia On: 59-Sgq-578158:42 Request LIPID PANEL (23046)Indication: Hypercholesterolemia On: 25-Bck-220778:42 Request CBC W/AUTO DIFF WBC ([id number])Indication: Hypercholesterolemia On: 61-Kwd-047461:42 Request CBC WITH MANUAL DIFF ([id number])Indication: Other abnormal glucose On: :17 Request METABOLIC PANEL, COMPREHENSIVE ([id number])Indication: Hypercholesterolemia On: 45-Heo-739098:17 Request LIPID PANEL (35815)Indication: Hypercholesterolemia On: :17 Request Blood Glucose , Office (55567)Indication: Other abnormal glucose On: 68-Axu-939577:51 Request METABOLIC PANEL, COMPREHENSIVE (62600)Indication: Hypercholesterolemia On: :31 Request Comments: in six months (approximately) LIPID PANEL (38160)Indication: Hypercholesterolemia On: :31 Request Comments: in six months (approximately) Rapid Strep Test, Office (01341)Indication: Acute pharyngitis On: 5-Qsq-015877:32 Request LIPID PANEL (43361)Indication: Hypercholesterolemia On: :28 Request METABOLIC PANEL, COMPREHENSIVE (74047)Indication: Hypercholesterolemia On: :28 Request CBC WITH MANUAL DIFF (90621)Indication: Hypercholesterolemia On: 2-Iuo-793332:11 Request LIPID PANEL (69557)Indication: Hypercholesterolemia On: 6-Tyi-176850:10 Request METABOLIC PANEL, COMPREHENSIVE (11275)Indication: Hyperparathyroidism, primary On: 8-Xwd-492663:10 Request METABOLIC PANEL, COMPREHENSIVE (82225)Indication: Hyperparathyroidism, primary On: 15-May-20129:20 Request LIPID PANEL (21934)Indication: Hypercholesterolemia On: 15-May-20129:20 Request HPV automatic (15988)Indication: Screening for HPV (human papillomavirus) On: 57-Lus-850785:20 Request Thin prep Pap ([id number])Indication: Well woman exam On: 60-Cnw-180570:11 Request URINALYSIS ([id number])Indication: Unspecified urinary incontinence On: 3-Byx-619574:47 Request IMMUNOFIXATION ELECTROPHORESIS (13314)Indication: Other abnormal finding of urine On: 9-Bwi-420522:35 Request Comments: of urine HEPATIC FUNCTION PANEL (07731)Indication: Hypercholesterolemia On: 95-Lle-319885:39 Request Comments: in six months (approximately) LIPID PANEL (20448)Indication: Hypercholesterolemia On: 15-Owz-228037:39 Request Comments: in in six months (approximately) Urine Protein Electrophoresis (UPEP) (66971)Indication: Hypercalcemia On: 72-Jsy-387953:38 Request Serum Protein Electrophoresis (SPEP) (42461)Indication: Hypercalcemia On: 18-Lan-306798:38 Request URINE CALCIUM ALYSA TIMED (04469)Indication: Hypercalcemia On: 25-Vtr-307227:38 Request Comments: 24 hour PARATHORMONE (76420)Indication: Hypercalcemia On: 27-Oif-405189:31 Request Calcium Serum (27001)Indication: Hypercalcemia On: 55-Hkn-923270:30 Request HgA1C , Office (87587)Indication: Impaired fasting glucose On: 47-Mgt-932455:25 Request METABOLIC PANEL, COMPREHENSIVE (46159)Indication: Hypercholesterolemia On: :13 Request LIPID PANEL (87458)Indication: Hypercholesterolemia On: 3-Qzu-346821:13 Request Comments: in six months (approximately) CBC, Platelets & Auto Diff (68857)Indication: Hypercholesterolemia On: :32 Request Metabolic Panel, Comprehensive ([id number])Indication: Hypercholesterolemia On: 1-Dze-273881:32 Request Lipid Panel (97659)Indication: Hypercholesterolemia On: 3-Ice-535119:32 Request HEPATIC FUNCTION PANEL (22931)Indication: Hypercholesterolemia On: 3-Jar-435363:33 Request Lipid Panel (32854)Indication: Hypercholesterolemia On: 5-Kys-585185:33 Request Comments: in six months (approximately) HEPATIC FUNCTION PANEL (56737)Indication: Hypercholesterolemia On: 42-Mqg-858018:05 Request Lipid Panel (06139)Indication: Hypercholesterolemia On: 81-Gpz-384273:05 Request Comments: in six months (approximately) Lipid Panel (34666)Indication: Hypercholesterolemia On: 96-Lwr-835644:43 Request Metabolic Panel, Comprehensive (21442)Indication: Hypercholesterolemia On: 50-Zzr-807210:43 Request Thin prep Pap (29771)Indication: Well woman exam On: 70-Lnk-754525:43 Request HEPATIC FUNCTION PANEL ([id number])Indication: Hypercholesterolemia On: 1-Zhx-428164:27 Request LIPID PANEL ([id number])Indication: Hypercholesterolemia On: 4-Hkq-441592:27 Request Comments: in three months Planned Encounters Medical; 6 Month FU - On: 27-Oct-2018 13:30 [facility] Ellen Fonseca CNP, CNP, Ellen Ma Planned Procedures Flu Vaccine (Quadrivalent) On: 24-Jul-2018 Intent 36791Bx: Randi Dietz Comments: Lot #[id number]/30/2019Site-L dltd, IMDose prefilled syringegiven by: GEOFF JAMA reviewed and ABN signed MAMMOGRAM BREAST BILATERAL On: 15-Nov-2017 Intent SCREENING DIGITAL (20584)By: Raymundo DECKER, Patrica Raymundo REGISTRATION SPECIALIST, Patrica US THYROID (24171)By: Raymundo On: 14-Nov-2017 Intent REGISTRATION SPECIALIST, Patrica Melloa REGISTRATION SPECIALIST, Patrica Comments: FAX RESULTS TO DR MARY GARCIA, [facility] DEXA SCAN AXIAL SKELETON On: 23-Jan-2017 Intent (00498)By: Raymundo DECKER Patrica Almabecky DECKER, Patrica MAMMOGRAM BREAST SCREENING On: 24-Oct-2016 Intent DIGITAL (G0202)By: Michael Kelly MD THYROID ULTRASOUND (03175)By: On: 24-Apr-2016 Intent Michael Kelly MD Comments: 10/30 Ultrasound - ThyroidBy: On: 21-Oct-2015 Intent Alessandra Hudson MD Comments: [facility] (Quadrivalent) On: 21-Oct-2015 Intent 99845Pn: Alessandra Hudson MD Comments: Lot #:[id number] date:Amount given:0.5mlRoute: IMSite given:L DltdGiven by: Carmelina BONILLA and ABN signed Quad Flu BILATERAL MAMMOGRAMS On: 21-Oct-2015 Intent (05153)By: Alessandra Hudson MD Solu -Medrol Injection, 125 On: 03-Mar-2015 Intent mg (J2930)By: Becca WISE, Comments: lot:[id number]:07/30route:IMdose:125MGSite:R glutgiven by: CAROLINE Varner Solu -Medrol Injection, 125 On: 03-Mar-2015 Intent mg (J2930)By: Alessandra Hudson MD DEXA SCAN AXIAL SKELETON On: 04-Oct-2014 Intent (69260)By: Alessandra Hudson MD Comments: postmean[pausal had at [facility] ADMINISTRATION OF INFLUENZA On: 04-Oct-2014 Intent VIRUS VACCINE (G0008)By: Alessandra Hudson MD Flu Vaccine (Quadrivalent) On: 04-Oct-2014 Intent 63843Mb: Alessandra Hudson MD BILATERAL MAMMOGRAMS On: 23-Mar-2014 Intent (90299)By: Alessandra Hudson MD EKG (87753)By: Becca WISE, On: 22-Sep-2013 Intent Alessandra Varner Comments: see scanned document of test done to see results reviewed today with patient Eprescribed prescriptions On: 22-Sep-2013 Intent (G8553)By: Riddhi Hobson LPN Eprescribed prescriptions On: 22-Sep-2013 Intent (G8553)By: Riddhi Hobson LPN Eprescribed prescriptions On: 17-Aug-2013 Intent (G8553)By: Jamila Garcia Eprescribed prescriptions On: 16-Mar-2013 Intent (G8553)By: Alessandra Hudson MD MAMMOGRAM, SCREENING, BOTH On: 16-Mar-2013 Intent BREASTS (79148)By: Alessandra Hudson MD MAMMOGRAM, SCREENING, BOTH On: 07-Feb-2012 Intent BREASTS (04729)By: Alessandra Hudson MD MAMMOGRAM, SCREENING, BOTH On: 20-Feb-2011 Intent BREASTS (91288)By: Becca Comments: march 2011 Alessandra WISE DXA, BONE DENSITY, AXIAL On: 20-Nov-2010 Intent SKELETON (58622)By: Alessandra Hudson MD MAMMOGRAM, SCREENING, BOTH On: 20-Nov-2010 Intent BREASTS (81617)By: Alessandra Hudson MD MAMMOGRAM, SCREENING, BOTH On: 25-Apr-2010 Intent BREASTS (45570)By: Alessandra Hudson MD MAMMOGRAM, SCREENING, BOTH On: 15-Mar-2009 Intent BREASTS (49982)By: Alessandra Hudson MD IV Lactated Ringers 1000mlBy: On: 17-Sep-2008 Intent CONCEPCION Valencia Comments: Lot #:[id number] date:mount given:1000mlRoute: IVSite given:rt. anticubital Given by: erussell#22 initiated to rt. anticub without difficulty, infused without difficulty patient tolerated with no complaints IV Needle placement On: 17-Sep-2008 Intent (21929)By: CONCEPCION Valencia IV Infusion (13057)By: On: 17-Sep-2008 Intent CONCEPCION Valencia Toradol Injection, 30 mg On: 17-Sep-2008 Intent (J1885)By: Alessandra Hudson MD Comments: Lot #:[id number] date:5-4-2468Avpgem given:30mg Route: IVSite given:rt. anticub Given by: Dr. Hudson TD Injection , IM (08551)By: On: 14-Sep-2008 Intent Alessandra Hudson MD EKG (37296)By: Becca WISE, On: 14-Sep-2008 Intent Alessandra Varner MAMMOGRAM, SCREENING, BOTH On: 15-Mar-2008 Intent BREASTS (24933)By: Alessandra Hudson MD Pelvic and Breast, Medicare On: 15-Mar-2008 Intent (G0101)By: Alessandra Hudson MD Bone Density StudyBy: Becca On: 15-Mar-2008 Intent Alessandra WISE Comments: do 2 years from last, estrogen deficient MAMMOGRAM, SCREENING, BOTH On: 16-Aug-2006 Intent BREASTS (91233)By: Alessandra Hudson MD Planned Medications INJECTION, METHYLPREDNISOLONE [...] does not have durab le power of admitted attorneys. The patient has noticed nothing from the [...] for Discuss procedure results: Had labs at [facility] include VD , UA showing 0-5 RBC, [...] patient does not have durable power of admitted attorneys or living will. The patient has noticed no thing from the geriatic depression scale. Other providers contributing to the patient's care are gastrologist (Dr. Andrew Minaya [facility] ) and urologist (Dr. Pabon [...] patient does not have durable power of admitted attorneys or living will. The patient has noticed nothin g from the geriatic depression scale. Other providers contributing to the patient's care are gastrologist (Dr. Andrew Minaya ([facility]) ) and other: (Opthalm: Dr. [...] patient does not have durable power of admitted attorneys or living will. Other providers contributing to the patient's care are other: (see Dr. victor [facility]). Encounter Diagnosis: Hypercholesterolemia (272.0), Other Abnormal [...]
== END ==
PROVIDERS: Family Provider Nurse Practitioner; PCP Nurse Practitioner; Referring Provider Nurse Practitioner; Visit Provider Nurse Practitioner
DX: E04.1 Nontoxic single thyroid nodule (principal)
CPT/HCPCS: 76536

== ENCOUNTER → 2019-10-22 13:06 | Outpatient (CLI) | payer MEDICARE, SELFPAY ==
[2019-07-23 15:07] VITALS: BMI 31.3
--- NOTE | 2019-10-22 13:10 | US_ITS ---
STUDY: THYROID ULTRASOUND REASON FOR EXAM: Female, 69 years old. nodules -- prev bx TECHNIQUE: Ultrasound evaluation of the thyroid was performed with real-time and static barboza-scale imaging. COMPARISON: Prior exam of October 31, 2018 FINDINGS: RIGHT LOBE: The right lobe of the thyroid gland measures 5.1 x 1.5 x 1.7 cm. There is a heterogeneous echotexture. Multiple nodules of the right thyroid. The largest nodule is of the medial right thyroid extending into the isthmus measuring 1.7 x 1.6 x 0.4 with substantial internal vascularity and not substantially changed in size or appearance from the prior examination. The second largest nodule is 1.3 x 1.0 x 1.1 cm with a solid appearance not substantially changed in size or appearance from prior exam. LEFT LOBE: The left lobe of the thyroid gland measures 4.3 x 1.6 x 2.1 cm. There is a heterogeneous echotexture. Numerous thyroid nodules. The larger nodules are: 0.6 x 0.5 x 0.6 cm and inferior solid irregular nodule, a 1.0 x 1.6 x 1.5 cm solid isoechoic nodule of the left thyroid extending into the isthmus not changed from prior exam and a 1.6 x 1.2 x 1.0 cm complex nodule not substantially changed from the prior exam. ISTHMUS: The isthmus measures 4 millimeter.. US/Thyroid IMPRESSION: Stable size of the right thyroid with multiple nodules. 3 nodules are identified above and are not substantially changed from the prior exam. Stable size of the left thyroid with multiple nodules. 2 nodules are identified that are not substantially changed from the prior exam. A third solid irregular nodule measuring 0.6 x 0.5 x 0.6 cm inferiorly was not formerly identified or measured. Electronically Signed: Agustina Giraldo MD at 18:13 EST , Service support ,
--- NOTE | 2019-10-22 13:34 | BD_ITS ---
STUDY: DUAL ENERGY X-RAY ABSORPTIOMETRY / DXA REASON FOR EXAM: Female, 69 years old. Age of isabel- 48. Pat is 209.3# and 66.5 and quot; a loss of .75 and quot; per pat. Past hx of smoking. Takes Calcium and a multi-unit daily. Does a little exercising. TECHNIQUE: Bone Mineral Density (BMD) measurements of lumbar spine and bilateral hips were obtained. COMPARISON: Comparison is made with prior study dated January 29, 2017. FINDINGS: Lumbar Spine (L1-L4): g/cm2 (1.208) / T-score (0.1) / Z-score (1.8) Findings are suggestive of normal bone density with a low fracture risk. Left Femur Total: g/cm2 (0.953) / T-score (-0.4) / Z-score (1.1) Left Femoral Neck: g/cm2 (0.772) / T-score (-1.9) / Z-score (-0.2) Right Femur Total: g/cm2 (0.827) / T-score (-1.4) / Z-score (0.1) Right Femoral Neck: g/cm2 (0.737) / T-score (-2.2) / Z-score (-0.4) The T-Scores on the most recent prior examination were: Lumbar Spine (L1-L4): There has been improvement of bone density since the previous examination. Left Femur Total: which represents an improvement of 1.6%. Right Femur Total: which represents an improvement of 1.2%. BD/Dexa Bone Density Study IMPRESSION: The patient is considered osteopenic as outlined below according to World Albert Organization (WHO) criteria with a moderate fracture risk. There has been improvement of bone density since the previous examination. Reference Information: The T-score is the number of standard deviations above or below the standard which is normal for young adults at their peak bone mineral density. The World Health Organization (WHO) interprets the T-scores as follows: Above -1 Normal bone density Between -1 and -2.5 Osteopenia Equal to / or below -2.5 Osteoporosis As a practical clinical guideline, osteopenia may be graded as follows: Mild -1 through -1.5 Moderate -1.6 through -2.0 Severe -2.1 through -2.4 The Z-score is the number of standard deviations above or below age-matched controls. A Z-score of less than -1.5 would be considered abnormal. References: 1. NIH Osteoporosis and Related Bone Diseases http://www.osteo.org 2. International Society for Clinical Densitometry http://www.iscd.org 3. National Osteoporosis Foundation http://www.nof.org Electronically Signed: Tariq Deluna, at 12:42 EST , Service support ,
== END ==
PROVIDERS: Family Provider Nurse Practitioner; PCP Nurse Practitioner; Referring Provider Nurse Practitioner; Visit Provider Nurse Practitioner
DX: E04.1 Nontoxic single thyroid nodule (principal); Z78.0 Asymptomatic menopausal state
CPT/HCPCS: 76536; 77080

== ENCOUNTER → 2021-01-17 12:54 | Outpatient (CLI) | payer MEDICARE, SELFPAY ==
[2019-07-23 15:07] VITALS: BMI 31.3
--- NOTE | 2021-01-17 12:56 | US_ITS ---
STUDY: THYROID ULTRASOUND REASON FOR EXAM: Female, 70 years old. MULTIPLE THYROID NODULES TECHNIQUE: Ultrasound evaluation of the thyroid was performed with real-time and static barboza-scale imaging. COMPARISON: 10/22/2019 FINDINGS: RIGHT LOBE: The right lobe of the thyroid gland measures 4.6 by 1.8 x 1.7 cm. There is a heterogeneous echotexture. Multiple stable nodules of the right thyroid. The largest nodule is of the medial right thyroid extending into the isthmus measuring 1.8 cm with substantial internal vascularity and not substantially changed in size or appearance from the prior examination. The second largest nodule is 1.2cm with a solid appearance not substantially changed in size or appearance from prior exam LEFT LOBE: The left lobe of the thyroid gland measures 3.7 x 1.8 x 1.4 cm. There is a heterogeneous echotexture. Numerous stable thyroid nodules. The larger nodules are: 1.6 cm and inferior solid irregular nodule, a 1.1 cm solid isoechoic nodule of the left thyroid extending into the isthmus not changed from prior exam and a 0.5 cm complex nodule not substantially changed from the prior exam ISTHMUS: The isthmus measures 4 mm. The regional lymph nodes are normal. US/Thyroid IMPRESSION: Stable heterogeneous thyroid gland with multiple bilateral nodules that are unchanged from the previous study. No new suspicious nodule or significant change in size. Yearly follow-up recommended to assure stability Electronically Signed: Fausto Sequeira MD at 13:47 EDT , Service support ,
== END ==
PROVIDERS: PCP Nurse Practitioner; Referring Provider Nurse Practitioner; Visit Provider Nurse Practitioner
DX: E04.2 Nontoxic multinodular goiter (principal)
CPT/HCPCS: 76536

== ENCOUNTER 2021-12-28 12:49 | Outpatient (CLI) | payer MEDICARE, SELFPAY ==
--- NOTE | 2021-12-28 13:05 | BD_ITS ---
STUDY: DUAL ENERGY X-RAY ABSORPTIOMETRY / DXA REASON FOR EXAM: Female, 71 years old. [id number]. The patient is postmenopausal. TECHNIQUE: Bone Mineral Density (BMD) measurements of lumbar spine and bilateral hips were obtained. COMPARISON: Comparison is made with prior study dated 10/22/2019. FINDINGS: Lumbar Spine (L1-L4): g/cm2 (1.004) / T-score (-0.4) / Z-score (1.9) Findings are suggestive of normal bone density with a low fracture risk. Left Femur Total: g/cm2 (0.893) / T-score (-0.4) / Z-score (1.3) Left Femoral Neck: g/cm2 (0.692) / T-score (-1.4) / Z-score (0.6) Right Femur Total: g/cm2 (0.820) / T-score (-1.0) / Z-score (0.7) Right Femoral Neck: g/cm2 (0.592) / T-score (-2.3) / Z-score (-0.3) The T-Scores on the most recent prior examination were: Lumbar Spine (L1-L4): There has been worsening of bone density since the previous examination. Left Femur Total: which represents an improvement of 0.5%. Right Femur Total: which represents an improvement of 7%. BD/Dexa Bone Density Study IMPRESSION: The patient is considered osteopenic as outlined below according to World Albert Organization (WHO) criteria with a moderate fracture risk. There has been improvement of bone density since the previous examination. Reference Information: The T-score is the number of standard deviations above or below the standard which is normal for young adults at their peak bone mineral density. The World Health Organization (WHO) interprets the T-scores as follows: Above -1 Normal bone density Between -1 and -2.5 Osteopenia Equal to / or below -2.5 Osteoporosis As a practical clinical guideline, osteopenia may be graded as follows: Mild -1 through -1.5 Moderate -1.6 through -2.0 Severe -2.1 through -2.4 The Z-score is the number of standard deviations above or below age-matched controls. A Z-score of less than -1.5 would be considered abnormal. References: 1. NIH Osteoporosis and Related Bone Diseases www osteo.org 2. International Society for Clinical Densitometry www iscd.org 3. National Osteoporosis Foundation www nof.org Electronically Signed: Tariq Deluna MD at 14:17 EDT ,
== END 2021-12-28 23:59 | disposition home or self-care (01) ==
LOC: OPBD 12:50
PROVIDERS: PCP Nurse Practitioner; Visit Provider Nurse Practitioner
DX: Z13.820 Encounter for screening for osteoporosis (principal); Z78.0 Asymptomatic menopausal state
CPT/HCPCS: 77080

== ENCOUNTER 2022-01-22 14:02 | Outpatient (CLI) | payer MEDICARE, SELFPAY ==
--- NOTE | 2022-01-22 14:09 | US_ITS ---
STUDY: THYROID ULTRASOUND REASON FOR EXAM: Female, 71 years old. NODULES TECHNIQUE: Ultrasound evaluation of the thyroid was performed with real-time and static barboza-scale imaging. COMPARISON: 01/17/2021 FINDINGS: RIGHT LOBE: The right lobe of the thyroid gland measures 5 x 1.7 x 1.9 cm. There is a heterogeneous echotexture. 2 stable solid nodules in the mid and upper pole of the right thyroid gland. Largest one measuring 1.7 x 1.8 x 0.5 cm. LEFT LOBE: The left lobe of the thyroid gland measures 4.1 x 1.6 x 1.4 cm. There is a heterogeneous echotexture. 3 solid nodules are noted, largest is in the upper pole measuring 1.6 x 1.4 x 1.1 cm. ISTHMUS: The isthmus measures 5 mm. The regional lymph nodes are normal. US/Thyroid IMPRESSION: Stable multinodular goiter as compared to exam from 2020. Electronically Signed: Gilbert Dumont DO at 5:56 EDT ,
== END 2022-01-22 23:59 | disposition home or self-care (01) ==
PROVIDERS: PCP Nurse Practitioner; Referring Provider Nurse Practitioner; Visit Provider Nurse Practitioner
DX: E04.2 Nontoxic multinodular goiter (principal)
CPT/HCPCS: 76536; 93005

== ENCOUNTER → 2025-06-07 | Outpatient (CLI) | payer MEDICARE, SELFPAY ==
--- NOTE | 2025-06-07 11:19 | MRI_ITS ---
PROCEDURE: SPINE LUMBAR (ROUTINE) 06/07/2025 REASON FOR EXAM: PAIN, STENOSIS, DDD TECHNIQUE: SPINE LUMBAR (ROUTINE) COMPARISON: May 03, 2025 x-ray FINDINGS: There is grade 1 spondylolisthesis at L4-5, 0.5 cm. There is grade 1 retrolisthesis at L5-S1, 0.2 cm. The vertebral body height is maintained. There is Modic fibrotic type endplate change at L5-S1. Vertebral body marrow signal is normal. Intervertebral disc signal shows desiccation. The facets are aligned. The L1-L2 level: There is no significant disk protrusion. There is no lateral recess stenosis or foraminal stenosis. There is no critical central canal stenosis. The L2-L3 level: There is minimal right paracentral disk protrusion, with increased signal in the margin of the disc consistent with a fissure. There is no lateral recess stenosis or foraminal stenosis. There is no critical central canal stenosis. The L3-L4 level: There is no significant disk protrusion. There is no lateral recess stenosis or foraminal stenosis. There is no critical central canal stenosis. The L4-L5 level: There is mild right paracentral disk protrusion. There is no lateral recess stenosis or foraminal stenosis. There is no critical central canal stenosis. The L5-S1 level: There is moderate central and right paracentral disk protrusion. There is mild right lateral recess effacement. There is mild right foraminal narrowing secondary to disc protrusion. There is no critical central canal stenosis. The visualized conus shows normal signal characteristics. Adjacent soft tissues are unremarkable. MRI/Spine Lumbar (Routine) IMPRESSION: There is grade 1 spondylolisthesis at L4-5, 0.5 cm. There is grade 1 retrolist hesis at L5-S1, 0.2 cm. There is no central canal stenosis. There is mild right foraminal narrowing at L5-S1 secondary to disc protrusion. Reading Location: [facility]
== END | disposition home or self-care (01) ==
LOC: OPMRI 10:51
PROVIDERS: PCP Student in an Organized Health Care Education/Training Program; Referring Provider Student in an Organized Health Care Education/Training Program; Visit Provider Student in an Organized Health Care Education/Training Program
DX: M48.062 Spinal stenosis, lumbar region with neurogenic claudication (principal); M51.362 Other intervertebral disc degeneration, lumbar region with discogenic back pain and lower extremity pain; M43.16 Spondylolisthesis, lumbar region
CPT/HCPCS: 72148